=== PATIENT | male | born 1955 ===

== ENCOUNTER 2025-03-29 21:24 | Inpatient (IN) | payer OTHER, SELFPAY ==
[2025-03-29] VITALS (7 sets, daily range): BP systolic 68–117; BP diastolic 52–65
[2025-03-29 21:48] LABS: Glucose - Point of Care 116 mg/dl (70-99)
--- NOTE | 2025-03-29 22:10 | PTCARENOTE ---
received pt from [facility] and admitted into 2261. pt intubated and sedated. A-fib per tele monitor. Tachycardic. +pulses, generalized anasarca, +1/+2 pitting edema in B/L hands. ETT 8.0 / 21 @lip, Vent settings: A/C 40/450/12/5. Pox
98% lungs diminished throughout. Dobhoff 75 @ L nare. Christian draining hematuria. R lateral percutaneous Cholecystomy drain intact. +bs, +bm on arrival, Stage 1 blanchable pressure wound on sacrum on arrival. LIJ triple lumen intact. See worklist
for nursing interventions.
gtts:
Cardizem 15mg/hr
Propofol 30.2 mcg/kg/min
Heparin 300 units.
[2025-03-29] MEDS: SUBLIMAZE 100 IV (23:44)
[2025-03-29] MEDS: SUBLIMAZE 50 MCG IV (23:45)
[2025-03-30] VITALS (27 sets, daily range): BP systolic 88–132; BP diastolic 55–99
--- NOTE | 2025-03-30 00:34 | W.PN.UPDATE ---
Update Note
Progress Note Update
Procedure Note:
Procedure: Left Radial Arterial Line Placement
Consent: Administrative
Indication: Continuous BP monitoring, VDRF in need frequent ABG's, phlebotomy
Method: After Memo's test confirmed patency of ulnar artery and jacobs arches, pt was draped and prepped sterilely. Left radial artery was palpated, identified and punctured with 20G needle.
Catheter was inserted over guidewire without resistance using Seldinger's technique. Proper waveform and good flashback were noted. Catheter was sutured in place using 2-0 silk suture.
Area was sterilely dressed with tegaderm after application of biopatch. There were no significant blood loss or complications, pt tolerated procedure well.
--- NOTE | 2025-03-30 01:09 | PTCARENOTE ---
L Radial A-line placed by CTPA Ed Johnathan at bedside.
[2025-03-30] MEDS: DIPRIVAN 100 IV ×4 (01:31→21:40)
[2025-03-30 01:32] LABS: B.E. 5.3 mmol/L; HCO3 28.9 mmol/L (21-28); Ionized Calcium 1.17 mMOL/L (1.15-1.33); O2 Saturation % 99.7 % (94-98); PCO2 37 mmHg (35-48); PO2 130 mmHg (83-108)
[2025-03-30 01:35] LABS: Hematocrit 26.2 % (39.0-52.0); Hemoglobin 8.4 g/dL (13.0-18.0); Mean Corp Hgb Conc. 32.1 g/dL (33.0-37.0); Mean Corpuscular Hgb 28.9 pg (27.0-31.0); Mean Platelet Volume 11.4 fL (7.4-10.4); Platelet Count 185 10^3/uL (130-400); Red Blood Cell Count 2.91 10^6/uL (4.70-6.10); Red Cell Dist. Width 17.1 % (11.5-14.5); White Blood Cell Count 17.6 10^3/uL (4.8-10.8)
[2025-03-30 01:46] LABS: INR 1.04; PT 13.9 Sec (11.4-14.6)
[2025-03-30 01:47] LABS: APTT 31.3 Sec (23.4-35.0)
[2025-03-30 01:55] LABS: ALT (SGPT) 104 U/L (0-50); AST (SGOT) 29 U/L (17-59); Albumin 2.7 g/dl (3.5-5.0); Alkaline Phosphatase 101 U/L (38-126); Blood Urea Nitrogen 39 mg/dl (9-20); Carbon Dioxide 26 mmol/L (22-30); Chloride 110 mmol/L (98-107); Direct Bilirubin 0.8 mg/dl (0.0-0.4); Glucose 143 mg/dl (70-99); HDL Cholesterol 36 mg/dl; Lactic Acid 0.8 mmol/L (0.7-2.0); Magnesium 2.3 mg/dl (1.6-2.3); Potassium 3.5 mmol/L (3.5-5.1); Sodium 142 mmol/L (135-145); Total Bilirubin 0.9 mg/dl (0.2-1.3); Total Cholesterol 118 mg/dl (50-199); Total Protein 5.6 g/dl (6.3-8.2); eGFR > 60.00
[2025-03-30] MEDS: HEPARIN 25000 UNITS/250 ML IV ×2 (02:16→21:35)
--- NOTE | 2025-03-30 02:32 | HPS.HSE ---
Family Physician
-
Family Physician: INTERVIEWE UNKNOWN - PT NOT
Chief Complaint
-
Mitral valve endocarditis/Flail @ P2
History of Present Illness
69 y/o man (intubated with hx obtained from chart) with hx of Gout, Hyperlipidemia, and Prostate ca (since 2012 which was treated with XRT and Hormone Therapy - Abiraterone; relapse 2015 treated with cryotherapy; relapse again in 2023 and being
treated with Abiraterone). Pt was having generalized malaise (fatigue, loss of appetite), intermittent non productive cough with subsequent diarrhea x 2 wks, prompting a visit to an urgent care facility. Pt was suspected of having RLL
pneumonia/bronchitis @ urgent care and was prescribed Azithromycin and Ceftin, directed to see PCP. Pt saw PCP on 03/16/25 and was found to be a-fib with RVR and advised to seek further evaluation @ [facility]. Pt presented to [facility] on 03/16/25
and received treatment for his A-fib with Cardizem and Esmolol gtt. On 03/17/25 pt became hypotensive, bradycardic with asystole requiring CPR, 2 doses of Epinephrine, and an 1amp of bicarb before achieving ROSC. It is reported that patient underwent
Targeted Temperature Management following ROSC. Subsequent evaluation @ [facility] R/O PE but found pt to have sepsis (blood cultures grew gram positive cocci in pairs and clusters) and acute cholecystitis. Pt received antibiotic treatment including Zosyn,
and underwent percutaneous cholecystomy tube placement by IR, 03/19/25. TONE obtained on 03/27/25 found MV leaflets be mildly thickened with P2 flail. Superimposed vegetation could not be excluded. Also noted on TONE was mild TR, mild AI, trivial
pericardial effusion, and LVEF of 60-65%. Arrangements were mad to transfer pt to [facility] for evaluation of Mitral valve repair/replacement. Pt presented to [facility]ICU on 03/29/25 @ 2120 intubated on Propofol @ 30, Cardizem gtt @ 15 mg/hr and Heparin gtt.
Pt was noted have pacheco in place with hematuria. Had IV access via left IJ triple lumen, no arterial line.
Medical History
Past Medical History
Past Medical History: Reports Other
Additional Past Medical History:
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
-Mild TR
-Mild AI
-Trivial pericardial effusion
-LVEF 60-65%
-Cardiac arrest S/P CPR with ROSC, 03/17/25
-Afib/flutter s/p unsuccessful TONE cardioversion, 03/27/25
-Bradycardia
-Hypotension
-Reported TTM
-Elevated iver enzymes @ [facility]
-Acute cholecystitis S/p cholecystostomy tube placement, 03/19/25
-FELIZ @ [facility]
-Hyperlipidemia
-Hypokalemia
-Gout
-Class 2 obesity
-Poor dentition
-Former tobacco use (1/2-2 ppd x 40 yrs, quit 10 yrs ago)
-ETOH use (1 beer/wk)
-S/P VDRF
-S/P Left carpel tunnel
Past Surgical History: Reports Other
Additional Past Surgical History:
-S/p unsuccessful TONE cardioversion, 03/27/25
-S/P VDRF
-S/P CPR with ROSC, 03/16/25
-S/P Percutaneous cholecystostomy tube placement, 03/19/25
-S/P Left carpel tunnel
Social History
Tobacco: Smoker
Alcohol: Occasional
Drug: None
Personal:
Living: With Family
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
Family History
Family History: Early CAD (Father @ age 50 from [place])
Allergies / Home Medications
Allergies reflects when Allergies were last updated in [facility].
Home Medications with original date entered in [facility]
Allergy/Medication List:
-NKDA
Review of Systems
-
Unable to obtain full review of systems at this time due to: Patient Intubation
Physical Exam
Vital Signs
Vital Signs
Temp Pulse Resp BP Pulse Ox
100.0 F 122 24 88/59 94
03/30/25 02:00 03/30/25 02:00 03/30/25 02:00 03/30/25 02:00 03/30/25 02:00
Physical Exam
General: Well Developed and Well Nourished
HEENT: NormoCephalic, Anicteric, Moist mucous membranes, Atraumatic and Other (Poor dentition)
Respiratory: Decreased Breath Sounds
Cardiac: Irregular Rhythm, Tachycardia (a-fib) and Murmur (2-3/6 systolic murmur)
Breast: Deferred by me
GI: Other (Protuberant with cholecystostomy tube placement)
Rectal: Deferred by Provider
Genito-urinary: Deferred by me
Musculoskeletal: Edema, Left Upper Extremity (2+), Edema, Right Upper Extremity (2+), Edema, Left Lower Extremity (+trace edema) and Edema, Right Lower Extremity (+trace edema)
Skin: Warm
Neuro: Other (intubated/sedated)
Hematologic/Lymphatic: No Lymphadenopathy
Psych: Other (Sedated and intubated)
Laboratory Results
-
03/30/25 06:00
03/30/25 06:00
Laboratory Results
PT Cancelled 03/30/25 06:00
INR Cancelled 03/30/25 06:00
APTT Cancelled 03/30/25 06:00
pH Cancelled 03/30/25 06:00
pCO2 Cancelled 03/30/25 06:00
pO2 Cancelled 03/30/25 06:00
HCO3 Cancelled 03/30/25 06:00
Lactic Acid 0.8 mmol/L (0.7-2.0) 03/30/25 01:21
Total Bilirubin Cancelled 03/30/25 06:00
AST Cancelled 03/30/25 06:00
ALT Cancelled 03/30/25 06:00
Alkaline Phosphatase Cancelled 03/30/25 06:00
Data Reviewed
-
Diagnostic Radiology: Report Reviewed by me
CT Scan: Report Reviewed by me
Ultrasound: Report Reviewed by me
Medical Tests (Nuc Med, Echo, EKG etc): Report Reviewed by me
Lab Data: Labs Reviewed by me
Old Records: Reviewed
Impression/Plan
-
IMPRESSION:
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
-Mild TR
-Mild AI
-Trivial pericardial effusion
-LVEF 60-65%
-Cardiac arrest S/P CPR with ROSC, 03/17/25
-Afib/flutter S/p unsuccessful TONE cardioversion, 03/27/25
-Bradycardia
-Hypotension
-Reported TTM
-Elevated iver enzymes @ [facility]
-Acute cholecystitis S/p cholecystostomy tube placement, 03/19/25
-FELIZ @ [facility]
-Hyperlipidemia
-Hypokalemia
-Gout
-Class 2 obesity
-Former tobacco use (1/2-2 ppd x 40 yrs, quit 10 yrs ago)
-ETOH use (1 beer/wk)
-S/P VDRF
-S/P Left carpel tunnel
PLAN:
-Dr. Johnson to see, review imaging and discern if pt is a candidate for surgical intervention
-Will work to extubate pt as pt has been intubated since 03/17/25
-Cont. Cardizem gtt for PAF
-A-line placed
-Maintain pacheco catheter
-Will consult Cardiology (A-fib/flutter), ID (suspected MV endocarditis), General Surgery (Acute cholecystitis), Oncology (prostate ca, currently on Arbiraterone), Neurology (TTM), OMFS (poor dentition)
[2025-03-30] MEDS: CARDIZEM 125 IV ×3 (02:36→21:25)
[2025-03-30] MEDS: CALCIUM GLUCONATE 130 MG IV (03:30)
--- NOTE | 2025-03-30 04:10 | PTCARENOTE ---
Pt intubated and sedated. PIV placed in right wrist. a-fib per tele monitor HR low 100s. VSS
gtts:
Fentanyl
propofol
Heparin
Cardizem.
[2025-03-30] MEDS: KCL 100 IV (04:19)
[2025-03-30 07:08] LABS: LDL Cholesterol, Calculated 50 mg/dl; Triglyceride 167 mg/dl (10-149); Very Low Density Lipoprotein 33 mg/dl (0-30)
--- NOTE | 2025-03-30 07:58 | CON.CAR ---
Addendum entered and electronically signed by Bryan Hernandez MD 03/30/25 15:02:
69 yo male with PMH of moderate/severe MR (flail P2), prostate cancer cancer transferred to [place] for CT surgery evaluation. Patient was initially treated for PNA as outpatient early in March. He worsened clinically, and was sent to [facility]. He was
in new A fib with RVR. He became septic, with Strep viridans bacteremia. Then PEA arrest 03/17. He remains intubated, sedated. Exam with tachy, irregular rhythm, III/ systolic murmur at apex, trace LE edema. Cr 0.9. Tele: A fib 90s-110s. I
reviewed TONE images from [facility]. Highly eccentric severe MR. There appears to be prolapse, partial flail of posterior leaflet. Cannot rule out vegetation: mobile echodensity may be ruptured chords. EF grossly normal.
Patient is critically ill. Unclear mental status following his cardiac arrest, and neurology has been consulted. Discussed with CT surgery team. Would like diagnostic cath as working towards surgical evaluation, determination of candidacy for
surgery. Discussed with interventional cards, and will proceed with cath today. He will undergo f/u TTE as well.
A fib, now persistent. He underwent DCCV at [facility], and was briefly in sinus before reverting back to A fib. Continue diltiazem drip and metoprolol. Continue heparin drip for AC.
CCT 65 min (of my time), including review of records, discussion with family at bedside, review of echo images from [facility], and discussion with CT surgery, and interventional cards to develop plan of care.
Original Note:
Consultation
Consultation Request
Date/Time Consultation Requested: 03/29/2025 15:50
Date/Time Consultation Performed: 03/30/2025 08:00
Requesting Provider: NAEEM Zaman
Performing Provider: NAEEM Looney for Dr. Hernandez
Reason for Consultation: Atrial fibrillation with RVR
Medical History
-
Chief Complaint: Severe mitral regurgitation
History of Present Illness:
Prem King is a 69 year old male with moderate MR (flail P2), HLD, metastatic prostate cancer (on Abiraterone & prednisone), gout, and hypothyroidism presents as a transfer from [facility] ([facility]) with severe mitral regurgitation with
possible vegetation. Mr. King is intubated and sedated and cannot contribute to this HPI nor ROS.
Review: Patient had 2 weeks of poor oral intake and generalized fatigue with an associated nonproductive cough. 1 week prior to arrival at [facility] he went to urgent care where he was given antibiotics for presumed pneumonia. On the date of the
admission, he was evaluated by his PCP and was found to be in atrial fibrillation with rapid ventricular response and was referred for emergency evaluation. He was normotensive with a heart rate 130-180 bpm. He was started on a diltiazem drip.
EKG revealed nonspecific ST wave abnormalities. He had a CTA to rule out PE. Stephanie tube placed by IR at [facility]. Nephrology followed for hypernatremia. Heme/Onc followed for hematuria (resolved, negative HIT) and prostate cancer. During his
hospitalization he was found to have sepsis in the setting of bacteremia. There was concern for mitral valve endocarditis. He had known MR with flail P2 prior to this admission. He had a PEA arrest. TTM performed.
Past Medical History
Past Medical History: Arrhythmias (PVC), Cancer (metastatic prostate cancer), Hypercholesterolemia, Hypothyroidism and Valvular Disease (MVP, moderate mitral regurgitation, mild aortic insufficiency )
Past Surgical History: Orthopedic and Tonsilectomy
Social History
Tobacco: Former Smoker
Alcohol: Occasional
Personal:
Living: With Family
Family History
Family History: CAD (Father with [place], age 50.)
Allergies / Home Medications
Allergy/AdvReac Type Severity Reaction Status Date / Time
No Known Allergies Allergy Unverified 03/29/25 15:53
Review of Systems
-
Unable to obtain full review of systems at this time due to: Patient Intubation
Physical Exam
Vital Signs
Temp Pulse Resp BP Pulse Ox
98.7 F 93 24 107/66 98
03/30/25 07:46 03/30/25 07:00 03/30/25 07:46 03/30/25 07:00 03/30/25 07:47
Lab Results
03/30/25 06:00
03/30/25 06:00
Physical Exam
General: Well Developed and Comfortable
HEENT: Normocephalic and Anicteric
Respiratory: Clear and Other (mechanical ventilation)
Cardiac: S1/S2, Irregular Rhythm and Murmur (III/)
Breast: Deferred by me
GI: Soft, Non Tender, Non Distended and Normal Bowel Sounds
Rectal: Deferred by Provider
Genito-urinary: No Costovertebral Tender
Musculoskeletal: No Clubbing and No Cyanosis
Skin: Warm and Dry
Neuro: Sedated
Hematologic/Lymphatic: No Lymphadenopathy
Impression / Plan
-
I/P: 69M with moderate MR (flail P2) now severe, HLD, metastatic prostate cancer (on Abiraterone & prednisone), gout, and hypothyroidism presents as a transfer from [facility] ([facility]) with severe mitral regurgitation with possible
vegetation.
Outpatient Manager Medical Device: Dr. Rodriguez
S/p PEA cardiac arrest 03/17/2025
-10 minutes od CPR prior to ROSC, epi x 2, no shocks -> TTM
-Reportedly did poorly on pressure support wean 03/29/2025 (respiratory alkalosis with high minute volume ventilation)
-Remains intubated and sedated, sedation wean this morning
-On stress dose steroids, he is on chronic prednisone 5mg BID as an outpatient
Severe sepsis - Bacteremia (Streptococcus viridans)
-ID consulted
Mitral regurgitation, severe
-Flail P2, seen on 2023 study with 'moderate mitral vegetation) -- typographical error for regurgitation?
Volume overload
-Unclear cause, volume resuscitation with severe MR?
Atrial fibrillation with RVR
-Failed 03/27/25 DCCV, near immediate return of RVR
-Was on metoprolol, digoxin, and diltiazem at [facility]
-Oral anticoagulation: Heparin gtt
-[id number]: score at least 1 (age 65-74)
Acute cholecystitis
-Perc stephanie tube placed at [facility] 03/19/2025
Hematuria, resolved, HIT negative
Hypernatremia, resolved, briefly saw Nephrology at [facility]
Prostate cancer, metastatic, on Abiraterone
PVCs, burden 4.6% on Holter (2023)
Former smoker, continued cessation recommended
DATA:
TONE, 03/27/2025:
Mild AR.
MV leaflets thickened. Flail P2. Vegetation cannot be excluded.
CT PE 03/16/2025:
Moderate pericardial effusion.
Bilateral pleural effusions, R > L.
--- NOTE | 2025-03-30 08:25 | CON.INTV ---
Consultation
Consultation Request
Date/Time Consultation Requested: 03/30/2025800
Date/Time Consultation Performed: 03/30/2025819
Requesting Provider: Mary Jara NP
Performing Provider: Dr. Granger
Reason for Consultation: Intubated
Medical History
-
Chief Complaint: Fatigue, cough, diarrhea
History of Present Illness:
69-year-old male former tobacco smoker with a past medical history of of gout, prostate cancer (diagnosed 2012) s/p XRT with relapse in 2015 s/p cryotherapy, and another relapse in 2023 currently being treated with abiraterone, and hyperlipidemia
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 Patient has a known history of moderate to severe mitral regurgitation, with last echo done here at from 04/16/2024 showing posterior MV leaflet
prolapse with moderate mitral regurgitation and LVEF 55 to 60%. Patient was following with cardiology with Dr. Rodriguez at the time. Patient was asymptomatic at the time and repeat echo was ordered for April 07, 2025. The patient developed generalized
malaise with intermittent dry cough and diarrhea for 2 weeks and he went to urgent care [facility]. RLL pneumonia/bronchitis was suspected at urgent care and he was prescribed Zithromax + Ceftin. Patient saw his PCP on 03/16/2025 and found to be in new
onset A-fib with RVR and was sent to [facility]. While at [facility], he was started on Cardizem gtt + esmolol gtt. patient cardiac arrested on 03/17 which was preceded by bradycardia and then asystole, and received ROSC after 2 amps of
epinephrine and 1 amp of bicarb. Per documentation, patient underwent TTM. Evaluation for an acute PE was negative. Patient was found to be bacteremic reportedly with Streptococcus viridans. Patient also diagnosed with acute cholecystitis and
underwent percutaneous cholecystostomy tube placement by IR on 03/19. Patient had been started on antibiotics with Zosyn. Patient continued to be intubated since the day of his cardiac arrest on 03/17 with great difficulty weaning his sedation and
performing weaning trials due to tachycardia with hypertension and tachypnea. TONE performed on 03/27/2025 showed mildly thickened MV leaflets with P2 flail. Superimposed MV vegetation unable to be ruled out. Patient then transferred here to for
further evaluation for cardiothoracic intervention. [facility] [employer] service is now consulted for additional management/recommendations.
When I saw the patient today, he was intubated on AC/CMV at 12/450/40%/5 with PIP 19 cm water, VTE 495 cc and breathing at 22 breaths/min. He is currently sedated on propofol at 10 mcg/kg/min and fentanyl drip at 25 mcg/hr. Percutaneous
cholecystostomy tube in place draining brown bile. Patient's heart rate is 99, BP 115/70 via A-line, 93/52 via NIBP, and ETCO2: 29. Patient's family members at bedside including the patient's son, Rob, and the patient's , Caroline. All
questions were answered.
PMHx: PVCs, aortic insufficiency, mitral valve prolapse with mitral regurgitation, hyperlipidemia, metastatic prostate cancer s/p XRT with relapse (2015) treated with cryotherapy, currently on hormone therapy due to second relapse in 2023,
hypothyroidism, gout
PSHx: Plate with screw, broken right wrist with screws, tonsillectomy
Past Medical History
Past Medical History: Other (Above as per HPI)
Past Surgical History: Other (Above as per HPI)
Social History
Tobacco: Former Smoker
Alcohol: Occasional (Rarely)
Drug: None
Personal:
Living: With Family (Caroline)
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
Family History
Family History: CAD (Father)
Allergies / Home Medications
Allergies
Allergy/AdvReac Type Severity Reaction Status Date / Time
No Known Allergies Allergy Unverified 03/29/25 15:53
Review of Systems
-
Unable to Obtain full review of systems at this time due to: Patient Intubation
Vitals / Labs / Diagnostic Testing
Vital Signs
Temp Pulse Resp BP Pulse Ox
99.1 F 103 29 123/71 97
03/30/25 09:00 03/30/25 09:00 03/30/25 09:00 03/30/25 09:00 03/30/25 09:00
Lab Data
03/30/25 06:00
Laboratory Results
03/30/25 03/30/25 03/30/25
01:21 06:00 08:33
PT 13.9 Cancelled
INR 1.04 Cancelled
APTT 31.3 Cancelled 38.6 H
pH 7.50 H Cancelled
pCO2 37 Cancelled
pO2 130 H Cancelled
HCO3 28.9 H Cancelled
O2 Delivery Level Cancelled
Diagnostic Testing:
Physical Exam
-
HEENT: Normocephalic, Anicteric and Other (ETT in place)
Cardiovascular: Irregular Rhythm (Irregularly irregular) and Peripheral Edema (+1 lower extremity pitting edema bilaterally)
Respiratory: Wheeze (negative), Rales (negative), Rhonchi (negative), Non-Labored Respirations and Other (Mechanical breath sounds heard bilaterally)
GI: Soft, Non Distended, Non Tender and Normal Bowel Sounds
Neurology: Tremors (negative) and Other (Pupils 2 mm bilaterally and brisk)
Skin: Warm and Dry
General: Respiratory Distress (negative), Comfortable, Chills (negative) and Sweats (negative)
Assessment
-
Assessment: 69-year-old male former tobacco smoker with a past medical history of of gout, prostate cancer (diagnosed 2012) s/p XRT with relapse in 2015 s/p cryotherapy, and another relapse in 2023 currently being treated with abiraterone, and
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 Patient has a known history of moderate to severe mitral regurgitation, with last echo done here at from 04/16/2024 showing posterior MV
leaflet prolapse with moderate mitral regurgitation and LVEF 55 to 60%. Patient was following with cardiology with Dr. Lax at the time. Patient was asymptomatic at the time and repeat echo was ordered for April 07, 2025. The patient developed
generalized malaise with intermittent dry cough and diarrhea for 2 weeks and he went to urgent care [facility]. RLL pneumonia/bronchitis was suspected at urgent care and he was prescribed Zithromax + Ceftin. Patient saw his PCP on 03/16/2025 and found to
be in new onset A-fib with RVR and was sent to [facility]. While at [facility], he was started on Cardizem gtt + esmolol gtt. patient cardiac arrested on 03/17 which was preceded by bradycardia and then asystole, and received ROSC after 2 amps
of epinephrine and 1 amp of bicarb. Per documentation, patient underwent TTM. Evaluation for an acute PE was negative. Patient was found to be bacteremic reportedly with Streptococcus viridans. Patient also diagnosed with acute cholecystitis and
underwent percutaneous cholecystostomy tube placement by IR on 03/19. Patient had been started on antibiotics with Zosyn. Patient continued to be intubated since the day of his cardiac arrest on 03/17 with great difficulty weaning his sedation and
performing weaning trials due to tachycardia with hypertension and tachypnea. TONE performed on 03/27/2025 showed mildly thickened MV leaflets with P2 flail. Superimposed MV vegetation unable to be ruled out. Patient then transferred here to for
further evaluation for cardiothoracic intervention. [employer] service is now consulted for additional management/recommendations.
Chronic conditions [facility]: PVCs, aortic insufficiency, mitral valve prolapse with mitral regurgitation, hyperlipidemia, metastatic prostate cancer s/p XRT with relapse (2015) treated with cryotherapy, currently on hormone therapy due to second relapse
in 2023, hypothyroidism, gout
Impression:
#Ventilator dependent respiratory failure/acute hypoxic respiratory failure � intubated 03/17/2025 during in-hospital cardiac arrest
#In-hospital cardiac arrest at [facility] on 03/17/2025 (reportedly, patient became bradycardic and then developed asystole with ROSC obtained after 2 amps epi and 1 amp bicarb) s/p TTM
#Acute encephalopathy and upward gaze preference (left eye > right eye)
#Acute cholecystitis s/p percutaneous cholecystostomy tube placement (performed at [facility] on 03/19/2025) -bile fluid Cx reportedly negative unless mentioned above
#Moderate�severe mitral valve regurgitation with reported P2 flail with possible vegetation
#New onset atrial fibrillation
#Anemia
#Transaminitis (elevated T. bili + ALT)
#Bacteremia due to Streptococcus viridans (per patient's family)
#Metastatic prostate cancer (diagnosed 2012) s/p XRT with relapse (2015) s/p cryotherapy and another relapse in 2023 currently being treated with abiraterone
#Gout
Plan:
- Unclear sequence of events, however seems as if he had initial respiratory infection and then developed cardiac arrest, possibly due to ischemic heart disease with acute MR vs subacute MV endocarditis with valve destruction leading to severe MR,
and possible acute cholecystitis as a result of critical illness (as no stone reported and reportedly the bile was cultured and showed no growth)
- Tentative [facility] today
- Will need to obtain medical records from [facility]; may benefit from repeating TONE so have an updated view of his MV and re-assess for flail at P2
- Pt has been intubated since 03/17, hence depending on plan, perhaps best course would be tracheostomy, however if cardiothoracic intervention recommended then would keep intubated as once the mitral valve is fixed then I believe that weaning him
off sedation and then performing a SBT would be more feasible without risk of acute flash pulmonary edema
- Continue with mechanical ventilation with daily SAT/SBT if clinically appropriate - for now would not perform SAT/SBT as pt may require cardiothoracic intervention
- Maintain plateau pressure <30 and titrate FiO2 + PEEP to keep SpO2 >90-94%
- Continue aspiration precautions; keep HOB >30-45�
- prn nebulized bronchodilators - not currently bronchospastic
- Oropharyngeal + deep ETT suctioning with subglottic as needed
- Daily CXR + blood gas
- Daily vent adjustments as needed based on blood gas and SaO2
- Low level of sedation with goal RASS as 0 to -2
- If patient does not awaken appropriately, then would consider EEG +/- MRI brain
- CT head obtained today (03/30) showed no acute intracranial abnormality
- Neurology consulted and recs appreciated
- Try limiting DISEASE INTERVENTION SPECIALIST altering medications and keep sedation at the lowest dose needed to maintain RASS 0 to -2
- Continue with antibiotics, currently on ceftriaxone 2,000 mg IV q24hr
- Recommend ID consult
- Follow-up blood cultures x 2 collected today + check respiratory culture from ETT (if able to obtain adequate sample)
- There is a mild retrocardiac opacity concerning for pneumonia - continue Abx and if pt spikes fever then would broaden Abx further to cover MRSA and Pseudomonas with CT C/A/P
- Follow up MRSA swab
- Trend WBC and monitor for fevers
- Trend LFTs
- Trend perc yasmany drain output
- Maintain MAP>65 - currently off all pressors
- Currently on hydrocortisone - will attempt to wean off
- Maintain HR <110
- Heparin gtt with eventual TRX to NOAC
- Cardiology on board - recs appreciated
- Replete electrolytes with K>4, Mg>2
- Maintain euglycemia with goal BG 140-180
- Trend H/H and transfuse if needed to keep Hb>7-8g/dL; keep plt>20k, unless there is concern for bleeding then keep plt>50k
- Stress ulcer ppx
- Early nutrition - start tube feeds
- DVT ppx: Heparin gtt
Code status: Full code
Critical care statement: A total of 42 minutes of critical care time was provided for this patient today. This includes management of unstable vital signs, evaluation of the patient at bedside, reviewing the patient's pertinent medical records
including radiographs, microbiology, laboratory evaluations, and discussion with primary team, consultants, pharmacy, nutrition, physical therapy, case management, charge nurse, critical care nursing, and respiratory therapy.
--- NOTE | 2025-03-30 08:40 | PTCARENOTE ---
assumed care of pt from previous shift RN, Pupils +2, equally reactive to light, sedation vacation initiated at 08:30. afib on tele w HR 90-110, left radial daniele leveled and zeroed, BP 124/59, + peripheral pulses, +1 generalized edema. Lungs
diminished w occasional expiratory wheeze, #8 ETT/20cm at center lip. VENT SETTINGS: SIMV 40/450/12/+5, pox 99%. Left nare DHT position confirmed via CXR, hypoactive BS noted. NPO maintained as ordered. Christian draining lisa. Right abdominal perc
drain w bilious drainage.
[2025-03-30 08:49] LABS: Glycohemoglobin (HgbA1c) 5.8 % (4.0-5.6)
--- NOTE | 2025-03-30 08:56 | PTCARENOTE ---
CXR showed ETT not in proper position. Pt w eyes open, coughing around ETT. Pt resedated, CT JAMES and respiratory at bedside. Tube repositioned. Awaiting repeat CXR.
[2025-03-30 08:57] LABS: APTT 38.6 Sec (23.4-35.0)
--- NOTE | 2025-03-30 09:18 | PTCARENOTE ---
ETT further advanced to 27cm by RT and CT JAMES
[2025-03-30] MEDS: PEPCID 20 MG TUBE ×2 (10:05→20:39)
[2025-03-30] MEDS: MIRALAX 17 GRAMS TUBE (10:05)
[2025-03-30] MEDS: ZYLOPRIM 100 MG TUBE (10:05)
[2025-03-30] MEDS: LOPRESSOR 25 MG PO (10:06)
[2025-03-30] MEDS: LIPITOR 40 MG TUBE (10:06)
[2025-03-30] MEDS: STERILE WATER FOR INJECTION 20 ML IV (10:06)
[2025-03-30] MEDS: ROCEPHIN 2000 MG IV (10:06)
[2025-03-30] MEDS: ASPIR LOW (ENTERIC COATED) 81 MG PO (10:06)
--- NOTE | 2025-03-30 10:06 | CON.GS ---
Addendum entered and electronically signed by Abimael Benavides MD 03/30/25 11:43:
I saw and examined the patient independently.
The Row Boss Hoeing's note was reviewed and I agree with the note, assessment and plan except where noted below.
Comment: This is a 69-year-old male currently intubated and sedated, transferred here from [facility] for workup of mitral valve prolapse/endocarditis in the setting of metastatic prostate cancer. During his hospitalization there he underwent
imaging to identify the source of his sepsis and his gallbladder was noted to be distended and somewhat thickened so the diagnosis of acalculous cholecystitis was made. A percutaneous cholecystostomy tube was placed on 03/19/2025 with negative
cultures and has remained to gravity drainage since then. It is unclear if he is under the care of a general surgeon at [facility]. We also do not have his CT images but do have the report.
Will continue the cholecystostomy tube to gravity drainage.
Can add 3-way stopcock to allow easier flushing of the tubing, 10 cc NS once daily to ensure patency.
This drain will need to be in place for at least 6 weeks. We will typically do a tube injection study and if patency of the cystic duct is confirmed and there is no underlying stone disease, may simply be able to remove the tube versus potential
laparoscopic cholecystectomy.
Discharge instructions placed, patient to follow-up with me as an outpatient or can follow-up with his surgeon at [facility] if he had one established.
We will sign off for now, please call with any questions or concerns.
Original Note:
Consultation
-
Date/Time Consultation Performed: 03/30/25 0915
Requesting Provider: Meet
Reason for Consultation: guidance for perc yasmany drain
Medical History
-
Chief Complaint: perc yasmany tube present
History of Present Illness:
Mr King is a 69 yo male who was transferred from [facility] to yesterday from evaluation by cardiothoracic surgery. He is intubated/sedated and unable to provide history, therefore, the majority of the history was obtained from his medical
record. He is an active smoker who has a h/o metastatic prostate cancer currently on Abiraterone and gout with recent history of PNA tx as an outpatient earlier this month followed by new onset Afib with RVR causing him to present to [facility]
on 03[facility]25 at the recommendation of his PCP. He became asystolic while there requiring CPR with ROSC followed by TTM. He was noted to be septic with strep bactermia with infectious work up demonstrating possible acalculous cholecystitis for which a
cholecystostomy drain was placed on 03/18/25 with negative fluid cultures. A TONE was done on 03/29 for possible cardioversion with concern for endocarditis/vegetation of the MV and thus subsequent transfer to for cardiothoracic evaluation.
Past Medical History
Past Medical History: Arrhythmias (AFib), Hypercholesterolemia and Other (gout, morbid obesity)
Past Surgical History: Orthopedic (left carpal tunnel)
Social History
Tobacco: Smoker
Alcohol: Occasional
Personal:
Living: With Family
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
Family History
Family History: Early CAD (Father at age 50)
Allergies / Home Medications
Allergy/AdvReac Type Severity Reaction Status Date / Time
No Known Allergies Allergy Unverified 03/29/25 15:53
Review of Systems
-
Unable to obtain full review of systems at this time due to: Patient Intubation
A 10 point review of systems was completed, and was negative except as per HPI.
Physical Exam
Vital Signs
Temp Pulse Resp BP Pulse Ox
99.1 F 103 29 123/71 98
03/30/25 09:00 03/30/25 09:00 03/30/25 09:00 03/30/25 09:00 03/30/25 09:51
03/29/25 03/30/25 03/31/25
06:59 06:59 06:59
Actual Weight 102.9 kg
Lab Results
03/30/25 06:00
WBC Cancelled 03/30/25 06:00
Hgb Cancelled 03/30/25 06:00
Hct Cancelled 03/30/25 06:00
Plt Count Cancelled 03/30/25 06:00
Abs Immat Gran (auto) Cancelled 03/30/25 06:00
Neutrophils % Cancelled 03/30/25 06:00
Physical Exam
General: No Apparent Distress
HEENT: Other (intubated)
Respiratory: Other (VDRF)
GI: Soft, Non Distended, Obese and Other (RUQ with percutaneous cholecystostomy tube in place with brown outputs)
Skin: Warm and Dry
Neuro: Sedated
Psych: Calm
Data Reviewed
-
Old Records: Requested (CD of imaging) and Reviewed (paper chart from [facility] reviewed)
Assessment / Plan
-
69 yo male with recent onset of afib s/p asystole arrest with ROSC s/p TTM being treated for strep bacteremia with recent TONE with concern for ?endocarditis/MV vegetation who was transferred from [facility] for CT surg evaluation. During the
course of his admission at [facility], a percutaneous cholecystostomy tube was placed for possible acalculous cholecystitis for which a cholecystostomy drain on 03/18/25 with negative fluid cultures. Chart record reviewed from [facility], await
disc with imaging which is currently not available. Tube is functioning with bilious drainage noted on exam. Leukocytosis present to 17.6. Mild tachycardia. Fever of 100.6. Remains in VDRF.
Plan:
Continue local drain care with daily flush
Perc yasmany to remain in place for 6-8 weeks at minimum to allow tract to heal after which time would plan and outpatient tube study with IR/further imaging to reevaluate gallbladder
Will need close outpatient surgical follow up after his recovery from this acute event for drain management, either with team at [facility] or our team here at [facility] depending on patient preference
[2025-03-30] MEDS: SOLU-CORTEF 25 MG IV ×2 (10:07→20:39)
[2025-03-30 10:09] LABS: Blood Urea Nitrogen 38 mg/dl (9-20); Calcium 8.7 mg/dl (8.4-10.2); Carbon Dioxide 25 mmol/L (22-30); Chloride 110 mmol/L (98-107); Glucose 134 mg/dl (70-99); Potassium 4.1 mmol/L (3.5-5.1); Sodium 140 mmol/L (135-145); eGFR > 60.00
--- NOTE | 2025-03-30 10:17 | CON.NEURO ---
Neuro Assessment/Plan
Assessment
Encephalopathy following sepsis with cardiac arrest and need for surgical intervention to remove infected mitral valve
Not easy to detect what the correct prognosis would be for a full neurological recovery as there is not enough information.
Plan
Recheck CT of head without contrast to determine if there are new structural lesions producing current encephalopathy
Attempt to diminish or discontinue sedative medications to determine neurological baseline
Consider EEG if CT of head fails to demonstrate abnormality in the patient does not have a significant return of cognitive function after withholding sedation
Check blood work for additional metabolic abnormalities
Will follow pending results
Consultation
Order
Date of Consultation: 03/30/25
Requesting Provider: CT surgery
Reason for Consult: Encephalopathy
Subjective/Objective
Subjective Data
Date of Service: March 30, 2025
Unknown handed
Patient was transferred here from a local hospital ([facility]) for consideration of valve repair after discovery of presumed endocarditis.
Patient's medical history is entirely obtained after review of the patient's medical records and discussion with the patient's professional medical care providers. The patient reportedly was in his usual state of health until development of a cough
and diarrhea for 2 weeks prompting diagnosis at an urgent care facility with right lower lobe pneumonia. The patient received antibiotics at that time and was then evaluated by his primary care provider who found the patient to be in atrial
fibrillation. The patient presented to that outside hospital's emergency department. Unfortunately the patient then developed hypotension bradycardia and asystole requiring 2 doses of epinephrine and 1 dose of bicarbonate before retrieving
spontaneous circulation. The timeframe for return of circulation is unclear. The patient then underwent targeted temperature management and was found to have sepsis and acute cholecystitis. Patient was then found to have thickening on mitral
valve leaflets presumed to be infectious in etiology at which time the patient was transferred to this hospital yesterday evening.
While at the outside hospital, patient was described as being interactive, however, currently, the patient is described as not having ability to respond.
Objective Data
Vital Signs
Temp Pulse Resp BP Pulse Ox
37.3 C 103 29 123/71 98
03/30/25 09:00 03/30/25 09:00 03/30/25 09:00 03/30/25 09:00 03/30/25 09:51
Lab Results
03/30/25 06:00
03/30/25 08:33
PT Cancelled 03/30/25 06:00
INR Cancelled 03/30/25 06:00
APTT 38.6 Sec (23.4-35.0) H 03/30/25 08:33
Sodium 140 mmol/L (135-145) 03/30/25 08:33
Potassium 4.1 mmol/L (3.5-5.1) 03/30/25 08:33
BUN 38 mg/dl (9-20) H 03/30/25 08:33
Glucose 134 mg/dl (70-99) H 03/30/25 08:33
Calcium 8.7 mg/dl (8.4-10.2) 03/30/25 08:33
LDL Cholesterol, Calc 50 mg/dl 03/30/25 01:21
Patient Allergies
No Known Allergies Allergy (Unverified 03/29/25 15:53)
Review of Systems
-
Unable to obtain full review of systems at this time due to: Patient Intubation
History Source: Patient
All other systems: Reviewed and negative
Physical Exam
-
General: No Apparent Distress, Intubated and Appears Stated Age
Eyes: OU Absent Papilledema, Able to visualize OU, Round OU and [place] Conjunctivae
HEENT: Anicteric and Moist Mucous Membranes
Neck: Full Range of Motion
Respiratory: No Dyspnea
Cardiac: No JVD
GI: Non-distended
Skin: Unremarkable
Extremities: No Clubbing, No Cyanosis and Edema +1 (Throughout)
Psych: Unable to Assess
Extended Neurological Exam
Mood & Affect: Unable to Assess
Attention Span & Concentration: Unresponsive to Verbal Stimuli, Unresponsive to Physical Stimuli and Other (Patient does spontaneously open eyes and maintains eyes open for greater than 30 seconds with rare blinking. Does not follow any requests);
Negative Awake, Alert or Interactive
Memory: Unable to Assess
Involuntary Movement: None
Speech: Unable to Assess
Cranial Nerve II: Left Eye: Pupillary Reactivity Unremarkable, Pupillary Size Unremarkable and Unable to Assess Visual Thompson
Cranial Nerve II: Right Eye: Pupillary Reactivity Unremarkable, Pupillary Size Unremarkable and Unable to Assess Visual Thompson
Cranial Nerves III, IV, : Extraocular Movement: Negative Absent Doll's Eyes
Cranial Nerve V: Facial Sensation: Unable to Assess
Cranial Nerve VII: Facial Symmetry: Normal Facial Symmetry
Cranial Nerves IX, X: Palate Movement: Unable to Assess
Cranial Nerve XI: Shoulder Shrug: Unable to Assess
Cranial Nerve XII: Tongue Protusion: Unable to Assess
Muscle Strength, Overall: Negative Spontaneously Moves
Muscle Bulk & Tone: Bulk Unremarkable and Tone Unremarkable
Pronator Drift: Unable to Assess
Deep Tendon Reflexes: Trace Throughout
Cold Sensation: Unable to Assess
Vibration Sensation: Unable to Assess
Touch Sensation: Negative Withdrawal to Pain
Coordination: Unable to Assess
Babinski Sign: Absent Bilaterally
Gait & Station: Unable to Assess
Data Reviewed
-
CT Head: Ordered
Labs: Ordered and Report Reviewed
Reviewed with: Nurse and Physician Diesel Engine Engineer
Old Records: Summarized
Medications
-
Active Medications
Generic Name Dose Route Start Last Admin
Trade Name Freq PRN Reason Stop Dose Admin
Allopurinol 100 mg 03/30/25 08:00 03/30/25 10:05
Allopurinol 100 Mg Tablet TUBE 04/27/25 07:59 100 mg
DAILY STACY Administration
Aspirin 81 mg 03/30/25 08:00 03/30/25 10:06
Aspirin 81 Mg (Enteric Coated) Tablet PO 04/27/25 07:59 81 mg
DAILY STACY Administration
Atorvastatin Calcium 40 mg 03/30/25 08:00 03/30/25 10:06
Atorvastatin (Lipitor) 40 Mg Tablet TUBE 04/27/25 07:59 40 mg
DAILY STACY Administration
Ceftriaxone Sodium 2,000 mg 03/30/25 10:00 03/30/25 10:06
Ceftriaxone 2,000 Mg/20 Ml Vial IV 2,000 mg
Q24H STACY Administration
Dextrose 12.5 grams 03/29/25 23:38
Dextrose 50% (0.5 Grams/Ml) 50 Ml Syringe IV 04/26/25 23:37
[id number] PRN
hypoglycemia
Protocol
Famotidine 20 mg 03/30/25 08:00 03/30/25 10:05
Famotidine 20 Mg Tablet TUBE 04/27/25 07:59 20 mg
BID STACY Administration
Fentanyl Citrate 50 mcg 03/29/25 23:07
Fentanyl (50 Mcg/Ml) 100 Mcg/2 Ml Ampul IV 04/12/25 23:06
[id number] PRN
see protocol
Protocol
Glucagon 1 mg 03/29/25 23:38
Glucagon 1 Mg Vial IM 04/26/25 23:37
PRN PRN
hypoglycemia
Protocol
Hydrocortisone Sodium Succinate 25 mg 03/30/25 10:00 03/30/25 10:07
Hydrocortisone Sodium Succinate 100 Mg/2 Ml Vial IV 04/27/25 09:59 25 mg
Q12 STACY Administration
Diltiazem HCl 125 mg in 125 mls @ 0 mls/hr 03/29/25 23:00 03/30/25 02:36
Cardizem IV 125 mls
PER PROTOCOL STACY Administration
Protocol
Per Protocol
Fentanyl Citrate 1,000 mcg in 100 mls @ 0 mls/hr 03/29/25 23:15 03/29/25 23:44
Sublimaze IV 100 mls
PER PROTOCOL STACY Administration
Protocol
Per Protocol
Heparin Sodium 25,000 units in 250 mls @ 0 mls/hr 03/29/25 23:45 03/30/25 02:16
Heparin [id number] Units/250 Ml IV 250 mls
PER PROTOCOL STACY Administration
Protocol
Per Protocol
Propofol 1,000,000 mcg in 100 mls @ 0 mls/hr 03/29/25 23:45 03/30/25 06:04
Diprivan IV 100 mls
PER PROTOCOL SATCY Administration
Protocol
Per Protocol
Insulin Aspart 0 units 03/30/25 07:30 03/30/25 08:36
Insulin Aspart Low Resistance 300 Units/3 Ml Pen.Injctr SC 04/27/25 07:29 Not Given
AC STACY
Protocol
Metoprolol Tartrate 25 mg 03/30/25 10:00 03/30/25 10:06
Metoprolol 25 Mg Regular Release Tablet PO 04/27/25 09:59 25 mg
BID STACY Administration
Abiraterone Acetate 250 mg 03/30/25 08:00
250 Mg Po Qid PO 04/27/25 07:59
QID STACY
Polyethylene Glycol 17 grams 03/30/25 08:00 03/30/25 10:05
Polyethylene Glycol Powder 17 Grams Packet TUBE 04/27/25 07:59 17 grams
DAILY STACY Administration
Sodium Chloride 0 flush 03/29/25 23:00
Sodium Chloride 0.9% (Flush) Syringe IV 04/26/25 22:59
PER PROTOCOL STACY
Sterile Water 20 ml 03/30/25 10:00 03/30/25 10:06
Sterile Water For Injection 20 Ml Vial IV 04/27/25 09:59 20 ml
Q24H STACY Administration
Past History
Past History
ED Past Medical History: Cancer (Prostate 2012 treated with XRT and hormonal therapy relapsed 2023), Hypercholesterolemia and Other (Right lower lobe pneumonia, gout, cardiac arrest with ROSC March 2025); Negative Renal failure (Acute kidney injury)
ED Past Surgical History: Other (Left carpal tunnel syndrome presumably with repair, percutaneous cholecystotomy tube)
Social History
Tobacco: Smoker
Alcohol: Occasional
Personal:
Living: with family
Employment: Employed
Family History
Family History: Other (Reviewed and noncontributory)
[2025-03-30 10:47] LABS: Digoxin < 0.4 ng/ml (0.8-2.0)
--- NOTE | 2025-03-30 11:08 | RESPNOTE ---
Respiratory: @0908 ETT advanced to 27cm @ lip with CEPHALOMETRIC ANALYST at bedside. ETT secure and suctioned catheter passed with ease. Suctioned for moderate amount winter secretions.
--- NOTE | 2025-03-30 11:11 | PTCARENOTE ---
pt transported to and from CT without incident.
--- NOTE | 2025-03-30 11:47 | PTCARENOTE ---
US at bedside
--- NOTE | 2025-03-30 11:48 | WOUNDNOTE ---
DANIKA QUARLES NOTE: Followed up with nurse Tapia, confirmed patient has one stage 1 PI that patient was admitted with on sacrum. Recommended silicone foam to sacrum and can cancel consult. Will sign off unless needed.
[2025-03-30 12:28] LABS: Glucose - Point of Care 148 mg/dl (70-99)
--- NOTE | 2025-03-30 12:48 | PTCARENOTE ---
Family at bedside, updated.
--- NOTE | 2025-03-30 13:44 | CM ---
Reviewed chart. Met with Mrs. King and his son, Rob to review discharge plans. She states prior to admission he resides with her in a two story home with fourteen steps to enter. She states he has another fourteen steps to get to bedroom/full
bathroom. She states he has a powder room on the first floor. She states prior to admission he was independent with ambulation and adls. She states prior to admission he does not have any DME in the home. She states he has a prescription plan.
She states he has not been out of bed for two weeks. We briefly review needing some level of rehab. prior to going home. Will need to see his functional level when he is able to see if he will have any skilled care needs. He will need pre-cert
for any level of rehab. If he qualifies for acute rehab: [facility] [place] [facility] close to them. Medical work-up in progress. The discharge plan is some level of rehab. when medically stable.
--- NOTE | 2025-03-30 14:33 | CON.ONC ---
Impression
Impression
Hormone resistant metastatic prostate cancer
Severe mitral valve disease, will require surgery
Possible endocarditis
Possible iatrogenic adrenal insufficiency
Acute cholecystitis, drain in place
Plan
Plan
It would make sense to stop the Abiraterone. He was taking prednisone 10 mg daily in conjunction with this. I have some concern about adrenal insufficiency, although the cardiothoracic service tells me that his doctors at the other hospital were
aware of this and were slowly tapering it. An ACTH stimulation test could be done to confirm functioning adrenal glands. Other than that, I have little else to add at this point.
His does tell me that he is due for another leuprolide injection in 1 to 2 weeks. If he is still in the hospital, I would recommend that he receive that.
Patient History
History of Present Illness
Consult from Dr. Lowery regarding prostate cancer
This 69-year-old man was transferred in anticipation of mitral valve repair and/or replacement. He was found to have a very incompetent mitral valve, there is concern for vegetation. He reportedly was growing gram-positive cocci in pairs and
clusters. He had a cardiac arrest in the hospital. He was transferred here on life support with minimal neurologic reactivity.
He has a history of hormone resistant prostate cancer, treated at [facility] with abiraterone and prednisone. His PSAs have been less than 1, but apparently were rising from 0.1 up to 0.6.
Patient Medication
Active Medications
Generic Name Dose Route Start Last Admin
Trade Name Freq PRN Reason Stop Dose Admin
Allopurinol 100 mg 03/30/25 08:00 03/30/25 10:05
Allopurinol 100 Mg Tablet TUBE 04/27/25 07:59 100 mg
DAILY STACY Administration
Aspirin 81 mg 03/30/25 08:00 03/30/25 10:06
Aspirin 81 Mg (Enteric Coated) Tablet PO 04/27/25 07:59 81 mg
DAILY STACY Administration
Atorvastatin Calcium 40 mg 03/30/25 08:00 03/30/25 10:06
Atorvastatin (Lipitor) 40 Mg Tablet TUBE 04/27/25 07:59 40 mg
DAILY STACY Administration
Ceftriaxone Sodium 2,000 mg 03/30/25 10:00 03/30/25 10:06
Ceftriaxone 2,000 Mg/20 Ml Vial IV 2,000 mg
Q24H STACY Administration
Dextrose 12.5 grams 03/29/25 23:38
Dextrose 50% (0.5 Grams/Ml) 50 Ml Syringe IV 04/26/25 23:37
[id number] PRN
hypoglycemia
Protocol
Famotidine 20 mg 03/30/25 08:00 03/30/25 10:05
Famotidine 20 Mg Tablet TUBE 04/27/25 07:59 20 mg
BID STACY Administration
Fentanyl Citrate 50 mcg 03/29/25 23:07
Fentanyl (50 Mcg/Ml) 100 Mcg/2 Ml Ampul IV 04/12/25 23:06
[id number] PRN
see protocol
Protocol
Glucagon 1 mg 03/29/25 23:38
Glucagon 1 Mg Vial IM 04/26/25 23:37
PRN PRN
hypoglycemia
Protocol
Hydrocortisone Sodium Succinate 25 mg 03/30/25 10:00 03/30/25 10:07
Hydrocortisone Sodium Succinate 100 Mg/2 Ml Vial IV 04/27/25 09:59 25 mg
Q12 STACY Administration
Diltiazem HCl 125 mg in 125 mls @ 0 mls/hr 03/29/25 23:00 03/30/25 10:27
Cardizem IV 125 mls
PER PROTOCOL STACY Administration
Protocol
Per Protocol
Fentanyl Citrate 1,000 mcg in 100 mls @ 0 mls/hr 03/29/25 23:15 03/29/25 23:44
Sublimaze IV 100 mls
PER PROTOCOL STACY Administration
Protocol
Per Protocol
Heparin Sodium 25,000 units in 250 mls @ 0 mls/hr 03/29/25 23:45 03/30/25 02:16
Heparin [id number] Units/250 Ml IV 250 mls
PER PROTOCOL STACY Administration
Protocol
Per Protocol
Propofol 1,000,000 mcg in 100 mls @ 0 mls/hr 03/29/25 23:45 03/30/25 10:27
Diprivan IV 100 mls
PER PROTOCOL STACY Administration
Protocol
Per Protocol
Insulin Aspart 0 units 03/30/25 07:30 03/30/25 12:41
Insulin Aspart Low Resistance 300 Units/3 Ml Pen.Injctr SC 04/27/25 07:29 Not Given
AC STACY
Protocol
Metoprolol Tartrate 25 mg 03/30/25 10:00 03/30/25 10:06
Metoprolol 25 Mg Regular Release Tablet PO 04/27/25 09:59 25 mg
BID STACY Administration
Abiraterone Acetate 250 mg 03/30/25 08:00
250 Mg Po Qid PO 04/27/25 07:59
QID STACY
Polyethylene Glycol 17 grams 03/30/25 08:00 03/30/25 10:05
Polyethylene Glycol Powder 17 Grams Packet TUBE 04/27/25 07:59 17 grams
DAILY STACY Administration
Sodium Chloride 0 flush 03/29/25 23:00
Sodium Chloride 0.9% (Flush) Syringe IV 04/26/25 22:59
PER PROTOCOL STACY
Sterile Water 20 ml 03/30/25 10:00 03/30/25 10:06
Sterile Water For Injection 20 Ml Vial IV 04/27/25 09:59 20 ml
Q24H STACY Administration
Review of Systems
-
All Other Systems: Reviewed and Negative
Physical Exam
-
Examination shows an elderly male who appears to be comatose on the ventilator.
HEENT exam is unremarkable.
The chest is clear but with coarse breath sounds.
Heart reveals a loud holosystolic murmur.
The abdomen is soft and nontender with no organomegaly or masses.
Extremities are unremarkable.
Neurologic is grossly intact.
Labs
Lab Results
WBC Cancelled 03/30/25 06:00
RBC Cancelled 03/30/25 06:00
Hgb Cancelled 03/30/25 06:00
Hct Cancelled 03/30/25 06:00
MCV Cancelled 03/30/25 06:00
MCH Cancelled 03/30/25 06:00
MCHC Cancelled 03/30/25 06:00
RDW Cancelled 03/30/25 06:00
Plt Count Cancelled 03/30/25 06:00
MPV Cancelled 03/30/25 06:00
Abs Immat Gran (auto) Cancelled 03/30/25 06:00
Absolute Neuts (auto) Cancelled 03/30/25 06:00
Absolute Lymphs (auto) Cancelled 03/30/25 06:00
Absolute Monos (auto) Cancelled 03/30/25 06:00
Absolute Eos (auto) Cancelled 03/30/25 06:00
Absolute Basos (auto) Cancelled 03/30/25 06:00
Immature Gran % Cancelled 03/30/25 06:00
Neutrophils % Cancelled 03/30/25 06:00
Lymphocytes % Cancelled 03/30/25 06:00
Monocytes % Cancelled 03/30/25 06:00
Eosinophils % Cancelled 03/30/25 06:00
Basophils % Cancelled 03/30/25 06:00
Creatinine 0.9 mg/dL (0.7-1.3) 03/30/25 08:33
Vital Signs
Vital Signs
Temp Pulse Resp BP Pulse Ox
98.3 F 99 22 105/64 97
03/30/25 14:00 03/30/25 14:00 03/30/25 14:00 03/30/25 14:00 03/30/25 14:00
--- NOTE | 2025-03-30 15:31 | PTCARENOTE ---
pt transported to and from CT again without incident. Perc drain flushed and dressing changed. Echo at bedside.
--- NOTE | 2025-03-30 15:49 | CARDSERVLU ---
Echocardiogram with Lumason completed after protocol screening completed. Allergies verified.
Patent IV site: __Rt hand___
IV site flushed with 0.9% NaCl pre and post administration.
Diluted bolus method utilized to enhance visualization of ventricular maier.
Total volume given: ___2.0_ mL
Patient tolerated all procedures well without complications.
--- NOTE | 2025-03-30 16:06 | PTCARENOTE ---
pt sent to [facility]
--- NOTE | 2025-03-30 17:21 | ITS.CL.CATH ---
Addendum entered and electronically signed by Rom Oro DO 03/30/25 18:09:
Copy To: Aashish Rodirguez M.D.
Original Note:
[facility] - Catheterization
Cardiac Catheterization
Procedure Report:
CARDIAC CATHETERIZATION REPORT
Date of Procedure: 03/30/2025
Referring: Pascual Johnson M.D.
INDICATION: Severe mitral valve regurgitation, premitral valve repair/replacement.
PROCEDURE:
1. Left heart catheterization.
2. Coronary angiography.
A total of 0 80/58/66 minutes of procedural/moderate sedation was utilized. An independent pesticide use medical coordinator was present to assist with and help manage the patient's level of consciousness and physiologic status.
ACCESS:
1. 6 [place] right radial artery using a modified Seldinger technique under ultrasound guidance.
CATHETERS:
1. 5 [place] JR4.
2. 5 [place] JL 3.5.
HEMODYNAMIC DATA
Weight (kg): 102.5
AO (s/d/x, mmHg): 80/58/66
LV (s/x mmHg): 83/13
LEFT VENTRICULOGRAPHY: Not performed.
CORONARY ANGIOGRAPHY
Dominance: Right.
Left Main: Large size, trifurcating vessel. There is no coronary artery disease.
LAD: Large size vessel giving rise to 1 significant diagonal. There is no coronary artery disease.
Ramus: Large size vessel supplying the majority of the anterolateral wall. There is no coronary artery disease.
Circumflex: Large size, nondominant vessel giving rise to 1 obtuse marginal. There is no coronary artery disease.
RCA: Large size, dominant vessel with moderate tortuosity and a significant posterolateral arcade. There is no coronary artery disease.
INTERVENTION(S)
None.
Closure Device: Vascular band.
Radiation (mGy): 349.97
DAP (cm2.Gy): 31.6595
Fluoroscopy time (minutes): 3.7
CONCLUSIONS
1. Right dominant circulation with no coronary artery disease
2. Top normal to mildly elevated filling pressures (LVEDP = 13 mmHg at 102.5 kg).
3. Relative central hypotension (aortic systolic pressure 80 mmHg, mean pressure 66 mmHg), better on peripheral A-line (systolic blood pressure of 100), likely due to amplification effect.
RECOMMENDATIONS:
1. Expectant management after cardiac catheterization via right radial approach.
2. Limited weight bearing on the right wrist for one week.
3. Continued evaluation for possible mitral valve repair/replacement.
4. Titrate pressor/inotropes for mean arterial pressure >65 mmHg.
Copy to: Pascual Johnson M.D., Kaushik Vann M.D.
Rom Oro DO, FACC, FACP
--- NOTE | 2025-03-30 17:49 | PTCARENOTE ---
pt returned from [facility], radial band to right wrist. Sedation placed on standby. SBT in progress. family at bedside, updated.
[2025-03-30 18:09] LABS: Ammonia < 9 umol/L (9-30)
[2025-03-30 18:25] LABS: B.E. - POC 2.8 mmol/L; Blood Urea Nitrogen - POC 35 mg/dl (3-120); Chloride - POC 116 mmol/L (96-111); Creatinine - POC 0.79 mg/dl (0.3-1.0); Glucose - POC 152 mg/dl (70-99); HCO3 - POC 27 mmol/L (21-28); Hematocrit - POC 31 % PCV (42-52); Hemodilution- POC No; Hemoglobin Calculated - POC 10.5; Ionized Calcium - POC 1.17 mmol/L (1.15-1.33); O2 Saturation %Calculated-POC 99.9 % (94-98); PCO2 - POC 41 mmHg (35-48); PO2 - POC 317 mmHg (83-108); Sodium - POC 141 mmol/L (136-145); Specimen Type - POC Arterial; pH - POC 7.43 (7.35-7.45)
--- NOTE | 2025-03-30 18:25 | PTCARENOTE ---
SBT ended, HR 115 bp 140/63, pox 99, RR 30. Propofol reestablished at 20mcg, fentanyl 25mcg. Pt suctioned for copious amounts of bloody secretions via ETT and orally.
[2025-03-30 19:31] LABS: TSH Reflex To Free T4 1.86 uIU/ml (0.47-4.68)
--- NOTE | 2025-03-30 19:44 | CON.ID ---
Consultation
-
Date/Time Consultation Requested: March
Date/Time Consultation Performed: March
Requesting Provider: Dr Pascual Johnson
Performing Provider: Dorota Griffith MD
Reason for Consultation: endocarditis
Chief Complaint / Past History
Chief Complaint
The patient was transferred to this facility for higher level of care. The patient has moderate/severe MR, status post cardiac arrest 03/17/with recent TONE showing severe MR cannot rule out vegetation/ruptured cords. Patient is being evaluated for
possible repair or replacement of MV
History of Present Illness
Patient with complicated hospitalization for treatment of pneumonia where he was found to have AF/RVR with strep viridans bacteremia followed by cardiac arrest. He was found to have cholecystitis with cholecystotomy tube placement and decompression
of gallbladder. CT scan of chest abdomen pelvis was done showing pulmonary with small bilateral effusions and likely atelectasis rather than pneumonia, decompressed gallbladder, normal bowel, atrophic prostate,
Past History
Past Medical History: Cancer (Prostate cancer diagnosed 2013 with intermittent relapses in 2015 and 2023 with increasing PSA at this time) and Hypercholesterolemia
Additional Past Medical History:
Recent dental work with poor dentition, recent pneumonia treated at Urgent care center, currently intubated and ventilator dependent status post cardiac arrest
Past Surgical History: None
Allergy History:
No Known Allergies Allergy (Unverified 03/29/25 15:53)
Medications Reviewed: Yes
Social History
Tobacco: Smoker
Alcohol: Occasional
Drug: None
Personal:
Living: With Family
Employment: Employed
Family History
Family History: CAD (Early CAD with father age 50 from [place])
Review of Systems
Review of Systems
Unable to obtain full review with patient intubated
Vital Signs
Temp Pulse Resp BP Pulse Ox
97.3 F 111 22 112/71 100
03/30/25 19:00 03/30/25 19:00 03/30/25 19:00 03/30/25 16:00 03/30/25 19:00
Physical Exam
Physical Exam
Constitutional: Comfortable, Acutely Ill and Obese (Patient currently intubated and ventilator dependent And sedated)
Head: Normocephalic
Eyes: Pupils Equal, Pupils Round, No Conjunctival Hemorrhage and Sclera Anicteric
Pharynx: Other (Unable to assess)
Oral: Poor Dentition
Cardiovascular: Irregular Rate
Pulmonary: Other (Intubated and ventilator dependent with adequate oxygen saturation)
Gastrointestinal: Non Distended and Decreased Bowel Sounds
Genito-Urinary: Christian and Hematuria
Extremities: Edema
Skin: Warm and Dry
Neurological: Other (Sedated but responds to painful stimuli)
Psychological: Calm
Lab / Diagnostic Study Results
03/30/25 06:00
03/30/25 08:33
Abs Immat Gran (auto) Cancelled 03/30/25 06:00
Absolute Neuts (auto) Cancelled 03/30/25 06:00
Absolute Lymphs (auto) Cancelled 03/30/25 06:00
Absolute Monos (auto) Cancelled 03/30/25 06:00
Absolute Basos (auto) Cancelled 03/30/25 06:00
Immature Gran % Cancelled 03/30/25 06:00
Neutrophils % Cancelled 03/30/25 06:00
Lymphocytes % Cancelled 03/30/25 06:00
Monocytes % Cancelled 03/30/25 06:00
Eosinophils % Cancelled 03/30/25 06:00
Basophils % Cancelled 03/30/25 06:00
PT Cancelled 03/30/25 06:00
INR Cancelled 03/30/25 06:00
Lactic Acid 0.8 mmol/L (0.7-2.0) 03/30/25 01:21
Microbiology Results
Micro:
03/30/25 01:22 Blood Culture - Pending
Blood/Venous
03/30/25 01:54 Blood Culture - Pending
Blood/Venous
03/30/25 01:21 MRSA Screen - Pending
Nose
Assessment / Plan
1. Patient transferred to this facility for possible repair/replacement of abnormal MV
2. Patient with bacteremia on prior admission with Streptococcus viridans
3. Patient with cholecystitis requiring decompression in setting of acute cholecystitis treated with piperacillin/tazobactam
4. Per patient with recent dental visit in setting of very poor dentition
5. Several weeks ago patient diagnosed in urgent care facility with right lower lobe pneumonia/bronchitis treated with azithromycin and Ceftin
6. Current repeat blood cultures pending
7. WBC 17.6 /T 97.4
8. Patient currently off antibiotic
9. CTA chest /abdomen/Pelvis done today
.Thank you for calling infectious disease consultation for your patient.
The ID team will continue to follow with you
Care Review
Plan reviewed with: Other Provider and Other (Patient discussed with family at bedside)
Total Time Spent with Patient (in minutes): 55
[2025-03-30 20:06] LABS: Vitamin B12 941 pg/ml (239-931)
[2025-03-30] MEDS: LOPRESSOR 25 MG TUBE (20:39)
--- NOTE | 2025-03-30 21:00 | PTCARENOTE ---
Patient received intubated/ventilator. #8.0 ETT 26cm center lip. Ventilator settings: AC 12 TV 450 PEEP 5 FiO2 40%. SpO2 98%. Patient will open eyes to painful stimulation but does not tract. Pupils size 2 with sluggish reaction. Positive gag
reflex. Mouth care provided. Patient does not follow simple verbal commands. No extremity movement noted. Hand grasps absent. No adventitious breath sounds noted. Diminished lung sounds. Small amount of secretions. Initially, blood tinged.
Atrial Fibrillation. Heart rate 90-120's. Cardizem gtt at 15 mg/hr (15 ml/hr). Abdomen soft, round, nondistended. Hypoactive bowel sounds. No BM. No vomiting. Small bore ([place]) Feeding tube via left nare - Intact and patent - Flushes
without difficulty. Medication administration. Biliary drain intact. Christian catheter - Alanis with sediment - Outputs as documented. Generalized edema. Positive, palpable pulses. Right radial TR Band - All air removed - No bleeding noted. Left
radial arterial line - Intact - Zeroed and calibrated - Flushes without difficulty. Left subclavian T.L.C intact. Fentanyl gtt, Propofol gtt and Cardizem gtt. Assessment as documented.
--- NOTE | 2025-03-30 21:35 | PTCARENOTE ---
Patient's IV Heparin gtt restarted at 1,200 units/hr (12 ml/hr) per order. PA for CT Surgery, Mohan Mann PA-C, made aware of restart. PTT to be drawn 6hrs after restart. TR Band off - Dressing intact - No bleeding noted. Assessment as
documented.
[2025-03-31] VITALS (32 sets, daily range): BP systolic 76–138; BP diastolic 45–90; BMI 29.8
--- NOTE | 2025-03-31 00:30 | PTCARENOTE ---
Respiratory Therapist changed endotracheal tapia without difficulty. Endotracheal tube moved to right side. Mouth care provided. Assessment/Interventions as documented.
[2025-03-31 00:46] LABS: Glucose - Point of Care 162 mg/dl (70-99)
[2025-03-31] MEDS: DIPRIVAN 100 IV (00:53)
[2025-03-31] MEDS: SUBLIMAZE 100 IV (01:00)
[2025-03-31] MEDS: NOVOLOG FLEXPEN-LOW RESISTANCE 1 UNITS SC ×2 (01:13→18:02)
--- NOTE | 2025-03-31 01:16 | W.PN.CT ---
Today's Communication / Plan
-
Plan:
-Ongoing preop evaluation/workup
-Will wean off sedation
-Wean to extubate today
-Cont. Cardizem gtt, heparin gtt for PAF
-Cont. BB
-Maintain pacheco catheter, hematuria noted
-Appreciate consultants input
-For possible MV repair/replacement/MAZE/GARRY clip by Dr. Johnson Tuesday 04/03
Assessment / Plan
-
Assessment:
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
-Mild TR
-Mild AI
-Trivial pericardial effusion
-LVEF 60-65%
-Cardiac arrest S/P CPR with ROSC, 03/17/25
-Afib/flutter s/p unsuccessful TONE cardioversion, 03/27/25
-Bradycardia
-Hypotension
-Reported TTM
-Prostate ca (since 2012 which was treated with XRT and Hormone Therapy - Abiraterone; relapse 2015 treated with cryotherapy; relapse again in 2023 and being treated with Abiraterone)
-Elevated liver enzymes @ [facility]
-Acute cholecystitis S/p cholecystostomy tube placement, 03/19/25
-FELIZ @ [facility]
-Hyperlipidemia
-Hypokalemia
-Gout
-Class 2 obesity
-Poor dentition
-Hematuria
-Sacral decubitus ulcer (stage 1)
-Former tobacco use (1/2-2 ppd x 40 yrs, quit 10 yrs ago)
-ETOH use (1 beer/wk)
-S/P VDRF
-S/P Left carpel tunnel
-S/P VDR
-S/P CPR with ROSC, 03/16/25
-S/P Percutaneous cholecystostomy tube placement, 03/19/25
Discussed patient care with: Cardiology, Nursing, Respiratory Therapy, Pharmacy and Care Team
Subjective
-
Date of Service: March 31, 2025
Pt remains intubated and sedated, will wean off sedation today
Objective Data
-
PT Cancelled 03/30/25 06:00
INR Cancelled 03/30/25 06:00
APTT Cancelled 03/30/25 15:00
Vital Signs
Vital Signs
Temp Pulse Resp BP Pulse Ox
98.3 F 88 20 87/54 100
03/31/25 00:00 03/31/25 00:00 03/31/25 00:00 03/31/25 00:00 03/31/25 00:00
CT Intake/Output/Weight
03/30/25 03/30/25 03/31/25
06:59 18:59 06:59
Intake Total 630.1 / 630.1 377.8 / 681.9 304.1 / 681.9
Output Total 820 / 820 940 / 1535 595 / 1535
Balance -189.9 / -189.9 -562.2 / -853.1 -290.9 / -853.1
SaO2: 100 (A/C, 450, 12, 5, 40%)
Physical Exam
-
General: Other (sedated and intubated)
Cardiovascular: Irregular rate & rhythm and Murmur (2-3/6 systolic )
Respiratory: Decreased Breath Sounds (at bases, otherwise clear)
Sternum: Stable
Incision: Clean, Dry, Intact and Dressing Intact
Extremities: Edema +2 (UE) and Other
+trace edema @LE
Abdomen: +BS, soft, cholecystostomy drain intact
Data Reviewed
-
Lab Results: Results Reviewed
Medications: Active Meds Reviewed
Chest X-Ray: Report Reviewed and Image Reviewed
ECG: Report Reviewed and Image Reviewed
[2025-03-31 04:09] LABS: Hematocrit 25.9 % (39.0-52.0); Hemoglobin 8.2 g/dL (13.0-18.0); Mean Corp Hgb Conc. 31.7 g/dL (33.0-37.0); Mean Corpuscular Hgb 28.6 pg (27.0-31.0); Mean Corpuscular Volume 90.2 fL (80.0-94.0); Mean Platelet Volume 12.4 fL (7.4-10.4); Platelet Count 219 10^3/uL (130-400); Red Blood Cell Count 2.87 10^6/uL (4.70-6.10); Red Cell Dist. Width 16.8 % (11.5-14.5); White Blood Cell Count 15.4 10^3/uL (4.8-10.8)
[2025-03-31 04:12] LABS: APTT 32.1 Sec (23.4-35.0)
[2025-03-31 04:21] LABS: HCO3 24.4 mmol/L (21-28); Ionized Calcium 1.19 mMOL/L (1.15-1.33); O2 Saturation % 99.1 % (94-98); PCO2 32 mmHg (35-48); PO2 98 mmHg (83-108); pH 7.49 (7.35-7.45)
[2025-03-31 04:48] LABS: ALT (SGPT) 83 U/L (0-50); AST (SGOT) 47 U/L (17-59); Albumin 2.8 g/dl (3.5-5.0); Alkaline Phosphatase 88 U/L (38-126); Blood Urea Nitrogen 38 mg/dl (9-20); Calcium 8.5 mg/dl (8.4-10.2); Carbon Dioxide 24 mmol/L (22-30); Chloride 112 mmol/L (98-107); Glucose 120 mg/dl (70-99); Magnesium 2.1 mg/dl (1.6-2.3); Potassium 4.1 mmol/L (3.5-5.1); Sodium 142 mmol/L (135-145); Total Bilirubin 1.1 mg/dl (0.2-1.3); Total Protein 6.1 g/dl (6.3-8.2); eGFR > 60.00
--- NOTE | 2025-03-31 05:00 | PTCARENOTE ---
Patient's Fentanyl gtt and Diprivan gtt off per PA. Patient continues on IV Heparin gtt and Cardizem gtt. Patient now coughing frequently setting off ventilator alarm. Suctioned multiple times for thick tannish, blood tinged secretions. Mouth
care provided. Whitish, thrush appearing plaque on tongue. Pupils size 2 with brisk reaction. Patient does not tract. Patient does not follow simple verbal commands. Left shoulder shrug noted. Patient does not move right upper extremity.
Patient does not move bilateral lower extremities. PTT result 32.1. Increase IV Heparin gtt 200 units/hr. IV Heparin now infusing at 1400 units/hr (14 ml/hr). PTT six hours after rate change. Christian catheter lisa, blood tinged urine - PA for CT
Surgery aware. Assessment/Interventions as documented.
[2025-03-31] MEDS: LOPRESSOR 5 MG IV (05:30)
[2025-03-31] MEDS: CARDIZEM 125 IV (05:37)
[2025-03-31 05:51] LABS: Glucose - Point of Care 125 mg/dl (70-99)
[2025-03-31] MEDS: NOVOLOG FLEXPEN-LOW RESISTANCE SC ×3 (05:52→23:19)
--- NOTE | 2025-03-31 06:30 | PTCARENOTE ---
0620 Ventilator setting changed to SIMV Rate 12 TV 450 PEEP 5 PS 5 FiO2 40%. Patient tolerating SIMV settings. Patient now making eye contact. Positive left hand grasp. Patient able to wiggle toes. Assessment/Interventions as documented.
--- NOTE | 2025-03-31 08:00 | PTCARENOTE ---
assumed care of pt from previous shift RN. walking rounds completed. Pupils +2, reactive but sluggish. sedation off already at change of shift. patients eyes open and following most commands. trouble tracking. afib on monitor. HR 130-150s. VSS. +
pulses, +2 generalized edema. #8 ETT/26 L lip. 97%SIMV 12/450/+5/40%. lungs diminished with occasional bloody secretions. thick oral secretions. Left nare DHT present and patent. hypoactive BS. No BM. Christian draining punch colored urine. Right
abdominal drain w brown bilious drainage. hep gtt infusing at ordered rate, cardizem @15 mg, propfol and fentanyl on standby. will continue to monitor.
--- NOTE | 2025-03-31 08:11 | W.PN.INTV ---
Today's Communication / Plan
Recommendations
Mechanical ventilation with SAT/SBT
Given the bilateral pleural effusions with severe MR with possible flail component, would extubate to BiPAP if he is stable for extubation
Defer mitral valve intervention to cardiothoracic surgery
Continue antibiotics per ID
Follow-up surveillance blood cultures checked on 03/30/2025
Stress ulcer prophylaxis
Monitor hematuria and trend H&H + platelet count especially while on heparin drip; low threshold to consult urology
Check respiratory culture from ETT
If stupor does not improve then would consider checking EEG +/- MRI brain
Continue amiodarone drip
Guarded prognosis
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
Assessment
-
Assessment: 69-year-old male former tobacco smoker with a past medical history of of gout, prostate cancer (diagnosed 2012) s/p XRT with relapse in 2015 s/p cryotherapy, and another relapse in 2023 currently being treated with abiraterone, and
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 Patient has a known history of moderate to severe mitral regurgitation, with last echo done here at from 04/16/2024 showing posterior MV
leaflet prolapse with moderate mitral regurgitation and LVEF 55 to 60%. Patient was following with cardiology with Dr. Rodriguez at the time. Patient was asymptomatic at the time and repeat echo was ordered for April 07, 2025. The patient developed
generalized malaise with intermittent dry cough and diarrhea for 2 weeks and he went to urgent care [employer]. RLL pneumonia/bronchitis was suspected at urgent care and he was prescribed Zithromax + Ceftin. Patient saw his PCP on 03/16/2025 and found to
be in new onset A-fib with RVR and was sent to [facility]. While at [facility], he was started on Cardizem gtt + esmolol gtt. patient cardiac arrested on 03/17 which was preceded by bradycardia and then asystole, and received ROSC after 2 amps
of epinephrine and 1 amp of bicarb. Per documentation, patient underwent TTM. Evaluation for an acute PE was negative. Patient was found to be bacteremic reportedly with Streptococcus viridans. Patient also diagnosed with acute cholecystitis and
underwent percutaneous cholecystostomy tube placement by IR on 03/19. Patient had been started on antibiotics with Zosyn. Patient continued to be intubated since the day of his cardiac arrest on 03/17 with great difficulty weaning his sedation and
performing weaning trials due to tachycardia with hypertension and tachypnea. TONE performed on 03/27/2025 showed mildly thickened MV leaflets with P2 flail. Superimposed MV vegetation unable to be ruled out. Patient then transferred here to for
further evaluation for cardiothoracic intervention. [employer] Work[employer]ant service is now consulted for additional management/recommendations.
Chronic conditions [employer]: PVCs, aortic insufficiency, mitral valve prolapse with mitral regurgitation, hyperlipidemia, metastatic prostate cancer s/p XRT with relapse (2015) treated with cryotherapy, currently on hormone therapy due to second relapse
in 2023, hypothyroidism, gout
Impression:
#Ventilator dependent respiratory failure/acute hypoxic respiratory failure � intubated 03/17/2025 during in-hospital cardiac arrest at [facility]
#In-hospital cardiac arrest at [facility] on 03/17/2025 (reportedly, patient became bradycardic and then developed asystole with ROSC obtained after 2 amps epi and 1 amp bicarb) s/p TTM
#Acute encephalopathy and upward gaze preference (left eye > right eye) - no acute intracranial pathology on CTh from 03/30/2025
#Acute cholecystitis s/p percutaneous cholecystostomy tube placement (performed at [facility] on 03/19/2025) - bile fluid Cx reportedly negative as mentioned above
#Severe, eccentric mitral valve regurgitation with posterior leaflet MVP with reported P2 flail with possible vegetation
#New onset atrial fibrillation
#Hematuria
#Anemia
#Transaminitis (elevated ALT)
#Bacteremia due to Streptococcus viridans (per patient's family)
#Minimally displaced sternal fracture due to recent CPR
#Metastatic prostate cancer (diagnosed 2012) s/p XRT with relapse (2015) s/p cryotherapy and another relapse in 2023 currently being treated with abiraterone
#Gout
Plan:
- Unclear sequence of events, however seems as if he had an initial respiratory infection and then developed cardiac arrest, likely due to subacute MV endocarditis with valve destruction leading to severe MR, and possible acute cholecystitis as a
result of critical illness (as no stone reported and reportedly the bile was cultured and showed no growth)
- s/p LHC on 03/30 showing right dominant circulation with no CAD with top normal�mildly elevated filling pressures (LVEDP: 13 mmHg)
- TTE performed on 03/30/2025 showed severe eccentric MR with posterior leaflet mitral valve prolapse and unable to exclude a flail segment, with moderate AI, normal RV size/function and normal LV size/function (LVEF: 60-65%) with no regional WMA
- Will need to obtain medical records from [facility]; may benefit from repeating TONE so have an updated view of his MV and re-assess for flail at P2, however a TONE with cardioversion was attempted on 03/27/2025 but was unsuccessful (unclear why)
- Pt has been intubated since 03/17, hence depending on plan, perhaps best course would be tracheostomy, however if cardiothoracic intervention recommended then would keep intubated as once the mitral valve is fixed then I believe that weaning him
off sedation and then performing a SBT would be more feasible without risk of acute flash pulmonary edema
- Continue with mechanical ventilation with daily SAT/SBT if clinically appropriate
- Given that he has bilateral small pleural effusions on his CT chest from 03/30, would extubate to BiPAP if he is appropriate for extubation
- While he remains intubated, maintain plateau pressure <30 and titrate FiO2 + PEEP to keep SpO2 >90-94%
- Continue aspiration precautions; keep HOB >30-45�
- prn nebulized bronchodilators - not currently bronchospastic
- Oropharyngeal + deep ETT suctioning with subglottic as needed
- Daily CXR + blood gas
- Daily vent adjustments as needed based on blood gas and SaO2
- Low level of sedation with goal RASS as 0 to -2
- Neurology consulted on 6/23 given his prolonged hospital course with reports of inappropriate awakening, however as of 03/31 he is opening his eyes to commands but remains encephalopathic and stuporous
- CT head on 03/30/2025 showed no acute intracranial abnormality; pt does continue
- If patient's stupor does not improve, then would consider EEG +/- MRI brain
- Neurology consulted and recs appreciated
- Try limiting NOZZLE TENDER altering medications and keep sedation at the lowest dose needed to maintain RASS 0 to -2 - -> now off propofol and fentanyl drips and on precedex gtt
- Continue with antibiotics, currently on ceftriaxone 2,000 mg IV q24hr
- ID consulted - recs appreciated
- Follow-up blood cultures x 2 drawn 03/30 + check respiratory culture from ETT (if able to obtain adequate sample)
- There is a mild retrocardiac opacity concerning for pneumonia, and CT chest from 03/30/2025 shows bibasilar consolidations likely due to compressive atelectasis from bilateral pleural effusions and less likely pneumonia however this is unable to
be ruled out - continue Abx and if pt spikes fever then would broaden Abx further to cover Pseudomonas; MRSA swab negative
- Trend WBC and monitor for fevers
- Trend LFTs
- Trend perc yasmany drain output
- Maintain MAP>65 - currently off all pressors
- Currently on hydrocortisone - will attempt to wean off --> tomorrow start 25mg IV daily and continue this for 3 days and then stop
- Maintain HR <110 --> continue with amiodarone drip
- Heparin gtt currently infusing; eventual TRX to NOAC
- Cardiology on board - recs appreciated
- Replete electrolytes with K>4, Mg>2
-Patient began having hematuria overnight, and he was also having hematuria while at [facility]
- Christian catheter in place
- Trend H/H and transfuse if needed to keep Hb>7-8g/dL; keep plt>50k
- Hematuria may be due to Christian catheter in the setting of heparin drip although he also has active prostate cancer so this may also be contributing
- Oncology already on board and recs appreciated
- Continue to monitor hematuria and if worsens then would consult urology for possible CBI; as of 03/31, there are no blood clots seen
- Maintain euglycemia with goal BG 140-180
- Stress ulcer ppx - pepcid
- Early nutrition - start tube feeds
- DVT ppx: Heparin gtt
Code status: Full code
Critical care statement: A total of 38 minutes of critical care time was provided for this patient today. This includes management of unstable vital signs, evaluation of the patient at bedside, reviewing the patient's pertinent medical records
including radiographs, microbiology, laboratory evaluations, and discussion with primary team, consultants, pharmacy, nutrition, physical therapy, case management, charge nurse, critical care nursing, and respiratory therapy.
Data:
Left heart catheterization 03/30/2025:
CONCLUSIONS
1. Right dominant circulation with no coronary artery disease
2. Top normal to mildly elevated filling pressures (LVEDP = 13 mmHg at 102.5 kg).
3. Relative central hypotension (aortic systolic pressure 80 mmHg, mean pressure 66 mmHg), better on peripheral A-line (systolic blood pressure of 100), likely due to amplification effect.
Transthoracic echocardiogram 03/30/2025:
Normal left ventricular size and systolic function.
Estimated LV ejection fraction is 60-65%.
Posterior leaflet mitral valve prolapse and sever mitral regugitation
Focal thickening of the aotic valve and mild to moderate aortic regurgitation
Compared to the previous echo report 04/16/24 the degree of mitral regurgitation
has increased ( previously moderate). the focal thickeniing fo the aortic
leaflet is more prominent.
CT Head 03/30/2025: No acute intracranial abnormality. Mild cerebral atrophy and mild microvascular changes within the periventricular white matter.
Subjective Dataa
Subjective Data
Date of Service:
Date of Service: March 31, 2025
Chief Complaint: [employer] Work[employer] Consultant Follow Up and Vent Management Follow Up
Subjective:
Patient seen and evaluated this morning. He is awakening to command but still remains extremely fatigued and quickly falls back asleep; currently sedated on Precedex at 0.3 mcg/kg/h. Heart rate 111 with BP via A-line: 124/72. End-tidal CO2: 28.
Currently on amiodarone at 1 mg/min. Intubated and currently on a CPAP trial on 02/09 with FiO2 40%. PIP: 12 cmH2O with VTe 383 cc and breathing at 31 breaths/min.
Review of Systems
General: Unobtainable - Sedation
Objective Data
Data Reviewed
Vital Signs / I&O / Oxygen:
Vital Signs
Temp Pulse Resp BP Pulse Ox
99.7 F 135 27 152/72 97
03/31/25 08:00 03/31/25 09:00 03/31/25 09:00 03/31/25 08:51 03/31/25 09:00
Intake and Output
03/30/25 03/31/25 04/01/25
06:59 06:59 06:59
Intake Total 630.1 / 630.1 896.7 / 925.7 58 / 58
Output Total 820 / 820 2060 / 2125 165 / 165
Balance -189.9 / -189.9 -1163.3 / -1199.3 -107 / -107
SaO2 [A/C] 97
SaO2 97
Physical Exam
General: Respiratory Distress (negative), Comfortable, Chills (negative) and Sweats (negative)
HEENT: Normocephalic, Anicteric and Other (ETT in place)
Cardiovascular: Irregular Rhythm, Peripheral Edema (+1 lower extremity pitting edema bilaterally) and Other (Tachycardic)
Respiratory: Wheeze (negative), Crackles (negative), Rhonchi (negative), Non-Labored Respirations and ET Tube (Mechanical breath sounds heard bilaterally)
GI: Soft, Non Distended, Non Tender and Normal Bowel Sounds
Neurology: Tremors (negative) and Other (Sedated, although opens eyes to command)
Skin: Warm, Dry, Cyanosis (negative) and Jaundice (negative)
Labs/Micro/Reports
Lab Data
03/31/25 03:42
Laboratory Results
03/30/25 03/31/25 03/31/25
15:00 03:42 06:00
APTT Cancelled 32.1
pH 7.49 H Cancelled
pCO2 32 L Cancelled
pO2 98 Cancelled
HCO3 24.4 Cancelled
O2 Delivery Level Cancelled
03/31/25
08:15
APTT
pH 7.51 H
pCO2 31 L
pO2 127 H
HCO3 24.7
O2 Delivery Level
Microbiology
03/30/25 01:21 Nose MRSA Screen - Final
No Methicillin Resistant Staphylococcus aureus isolated.
03/30/25 01:54 Blood/Venous Blood Culture - Preliminary
No Growth in 24 hours- Final report to follow
03/30/25 01:22 Blood/Venous Blood Culture - Preliminary
No Growth in 24 hours- Final report to follow
[2025-03-31 08:27] LABS: B.E. 1.9 mmol/L; HCO3 24.7 mmol/L (21-28); O2 Saturation % 99.2 % (94-98); PCO2 31 mmHg (35-48); PO2 127 mmHg (83-108); pH 7.51 (7.35-7.45)
--- NOTE | 2025-03-31 08:42 | W.PN.CD ---
Addendum entered and electronically signed by Braulio Dale MD 03/31/25 09:42:
Patient seen and examined in collaboration with CHECK AND TRANSFER BEADER; agree with below
- Patient remains intubated; critical.
- Will start amiodarone for A-fib with RVR.
- Hematuria noted; management as per primary team.
- Remains on a heparin drip for now; monitor H/H.
- CT Surgery to determine whether patient is an appropriate candidate for CT Surgery.
Original Note:
Today's Communication / Plan
-
Stop diltiazem gtt
Amiodarone bolus
Start amiodarone gtt
Continue heparin and monitor hematuria
Impression / Plan
-
I/P: 69M with moderate MR (flail P2) now severe, HLD, metastatic prostate cancer (on Abiraterone & prednisone), gout, and hypothyroidism presents as a transfer from [facility] ([facility]) with severe mitral regurgitation with possible
vegetation.
Outpatient Product Lister: Dr. Rodriguez
S/p PEA cardiac arrest 03/17/2025
-10 minutes od CPR prior to ROSC, epi x 2, no shocks -> TTM
-Reportedly did poorly on pressure support wean 03/29/2025 (respiratory alkalosis with high minute volume ventilation)
-Remains intubated and sedated, sedation wean this morning
-On stress dose steroids, he is on chronic prednisone 5mg BID as an outpatient
Atrial fibrillation with RVR
-Failed 03/27/25 DCCV, near immediate return of RVR
-Was on metoprolol, digoxin, and diltiazem at [facility], stop diltiazem gtt and start amiodarone gtt after 150mg bolus
-Oral anticoagulation: Heparin gtt
-[id number]: score at least 1 (age 65-74)
Severe sepsis - Bacteremia (Streptococcus viridans)
-ID consulted
Mitral regurgitation, severe
-Flail P2, seen on 2023 study with 'moderate mitral vegetation' -- typographical error for regurgitation?
Hematuria
-Initially resolved, returned, H&H later this morning
-Continue heparin for now
Volume overload
-Unclear cause, volume resuscitation with severe MR?
-LVEDP = 13 mmHg at 102.5 kg
Acute cholecystiti, perc yasmany tube placed at [facility] 03/19/2025, seen by GS this admit
Hypernatremia, resolved, briefly saw Nephrology at [facility]
Prostate cancer, metastatic, on Abiraterone
PVCs, burden 4.6% on Holter (2023)
Former smoker, continued cessation recommended
DATA:
Cardiac catheterization, 03/30/2025:
CONCLUSIONS
1. Right dominant circulation with no coronary artery disease
2. Top normal to mildly elevated filling pressures (LVEDP = 13 mmHg at 102.5 kg).
3. Relative central hypotension (aortic systolic pressure 80 mmHg, mean pressure 66 mmHg), better on peripheral A-line (systolic blood pressure of 100), likely due to amplification effect.
TTE, 03/30/2025:
Normal left ventricular size and systolic function.
Estimated LV ejection fraction is 60-65%.
Posterior leaflet mitral valve prolapse and severe mitral regurgitation
Focal thickening of the aortic valve and mild to moderate aortic regurgitation
Compared to the previous echo report 04/16/24 the degree of mitral regurgitation
has increased ( previously moderate). the focal thickening fo the aortic
leaflet is more prominent.
TONE, 03/27/2025:
Mild AR.
MV leaflets thickened. Flail P2. Vegetation cannot be excluded.
CT PE 03/16/2025:
Moderate pericardial effusion.
Bilateral pleural effusions, R > L.
Physical Exam
Vital Signs/Labs
Vital Signs
Temp Pulse Resp BP Pulse Ox
99.6 F 150 27 158/76 97
03/31/25 07:00 03/31/25 07:00 03/31/25 07:00 03/31/25 05:30 03/31/25 07:00
03/30/25 03/31/25 04/01/25
06:59 06:59 06:59
Actual Weight 102.9 kg 102.6 kg
03/31/25 03:42
PT Cancelled 03/30/25 06:00
INR Cancelled 03/30/25 06:00
APTT 32.1 Sec (23.4-35.0) 03/31/25 03:42
Magnesium 2.1 mg/dl (1.6-2.3) 03/31/25 03:42
Triglycerides 167 mg/dl (10-149) H 03/30/25 01:21
LDL Cholesterol, Calc 50 mg/dl 03/30/25 01:21
VLDL Cholesterol, Calc 33 mg/dl (0-30) H 03/30/25 01:21
HDL Cholesterol 36 mg/dl 03/30/25 01:21
Digoxin < 0.4 ng/ml (0.8-2.0) L 03/30/25 08:33
Physical Exam
Constitutional: No acute distress and Comfortable
EENT: Anicteric
Cardiovascular: Rhythm/rate is irregular, Systolic murmur present and S1S2 is normal
Respiratory: Lungs clear to auscul. and Other (Mechanical ventilation)
GI: Soft, Distention absent, Flat, Non tender and Normal bowel sounds
Neuro/Psych: Other (Moving extremities, poor eye contact)
Other: Skin (warm and dry) and Cath Site (C/D/I no hematoma)
Data Reviewed
-
Date of Service: March 31, 2025
Medical Decision Making: Reviewed Test Results
Medical Tests (PFT, Pathology etc): Report Reviewed by me
Labs: Labs Reviewed by me and Labs Ordered by me
Old Records: Reviewed
[2025-03-31] MEDS: SOLU-CORTEF 25 MG IV ×2 (08:51→20:18)
[2025-03-31] MEDS: LOPRESSOR 25 MG TUBE (08:51)
[2025-03-31] MEDS: MIRALAX 17 GRAMS TUBE (08:51)
[2025-03-31] MEDS: ZYLOPRIM 100 MG TUBE (08:51)
[2025-03-31] MEDS: LIPITOR 40 MG TUBE (08:51)
[2025-03-31] MEDS: LOW STRENGTH ASPIRIN 81 MG TUBE (08:51)
[2025-03-31] MEDS: PEPCID 20 MG TUBE ×2 (08:51→20:19)
[2025-03-31] MEDS: PRECEDEX 100 IV ×2 (08:56→18:40)
[2025-03-31] MEDS: CORDARONE 518 MG IV (09:04)
--- NOTE | 2025-03-31 09:27 | W.PN.NEURO.1 ---
Today's Communication / Plan
-
Attempt to diminish or discontinue sedative medications when possible
Neuro Assessment/Plan
Assessment
Encephalopathy following sepsis with cardiac arrest and need for surgical intervention to remove infected mitral valve
Likely good prognosis for a full neurological recovery based on improvement with holding sedation as well as unremarkable CT of head
Plan
Attempt to diminish or discontinue sedative medications when possible
No concerns at this time for the patient to undergo needed cardiothoracic surgery from a neurological perspective
Will follow as needed
Subjective/Objective
Subjective Data
Date of Service: March 31, 2025
Patient unable provide his own medical history.
Objective Data
Vital Signs
Temp Pulse Resp BP Pulse Ox
37.6 C 135 27 152/72 97
03/31/25 08:00 03/31/25 09:00 03/31/25 09:00 03/31/25 08:51 03/31/25 09:00
Lab Results
03/31/25 03:42
PT Cancelled 03/30/25 06:00
INR Cancelled 03/30/25 06:00
APTT 32.1 Sec (23.4-35.0) 03/31/25 03:42
Sodium 142 mmol/L (135-145) 03/31/25 03:42
Potassium 4.1 mmol/L (3.5-5.1) 03/31/25 03:42
BUN 38 mg/dl (9-20) H 03/31/25 03:42
Glucose 120 mg/dl (70-99) H 03/31/25 03:42
Calcium 8.5 mg/dl (8.4-10.2) 03/31/25 03:42
LDL Cholesterol, Calc 50 mg/dl 03/30/25 01:21
Vitamin B12 941 pg/ml (239-931) H 03/30/25 17:41
Patient Allergies
No Known Allergies Allergy (Unverified 03/29/25 15:53)
Review of Systems
-
Unable to obtain full review of systems at this time due to: Patient Intubation
History Source: Patient
All other systems: Reviewed and negative
Physical Exam
-
General: No Apparent Distress, Intubated and Appears Stated Age
Eyes: Round OU and [place] Conjunctivae
HEENT: Anicteric and Moist Mucous Membranes
Neck: Full Range of Motion
Respiratory: No Dyspnea
Cardiac: No JVD
GI: Non-distended
Skin: Unremarkable
Extremities: No Clubbing, No Cyanosis and Edema +1 (Throughout)
Psych: Unable to Assess
Extended Neurological Exam
Mood & Affect: Unable to Assess
Attention Span & Concentration: Awake, Interactive, Unresponsive to Physical Stimuli and Other (Patient does maintain open eyes with rare blinking. Does follow some one-step requests briefly); Negative Alert
Memory: Unable to Assess
Involuntary Movement: None
Speech: Unable to Assess
Cranial Nerve II: Left Eye: Pupillary Size Unremarkable and Unable to Assess Visual Thompson
Cranial Nerve II: Right Eye: Pupillary Size Unremarkable and Unable to Assess Visual Thompson
Cranial Nerves III, IV, : Extraocular Movement: Negative Absent Doll's Eyes
Cranial Nerve V: Facial Sensation: Unable to Assess
Cranial Nerve VII: Facial Symmetry: Normal Facial Symmetry
Cranial Nerves IX, X: Palate Movement: Unable to Assess
Cranial Nerve XI: Shoulder Shrug: Unable to Assess
Cranial Nerve XII: Tongue Protusion: Unable to Assess
Muscle Strength, Overall: Spontaneously Moves
Muscle Bulk & Tone: Bulk Unremarkable and Tone Unremarkable
Pronator Drift: Unable to Assess
Deep Tendon Reflexes: Trace Throughout
Cold Sensation: Unable to Assess
Vibration Sensation: Unable to Assess
Touch Sensation: Negative Withdrawal to Pain
Coordination: Unable to Assess
Babinski Sign: Absent Bilaterally
Gait & Station: Unable to Assess
Data Reviewed
-
CT Head: Report Reviewed
Labs: Report Reviewed
Reviewed with: Physician, Nurse and Physician Court Recording Monitor
Old Records: Summarized
Past History
Past History
ED Past Medical History: Cancer (Prostate 2012 treated with XRT and hormonal therapy relapsed 2023), Hypercholesterolemia and Other (Right lower lobe pneumonia, gout, cardiac arrest with ROSC March 2025); Negative Renal failure (Acute kidney injury)
ED Past Surgical History: Other (Left carpal tunnel syndrome presumably with repair, percutaneous cholecystotomy tube)
Social History
Tobacco: Smoker
Alcohol: Occasional
Personal:
Living: with family
Employment: Employed
Family History
Family History: Other (Reviewed and noncontributory)
Medications
-
Medications:
Generic Name Dose Route Start Last Admin
Trade Name Freq PRN Reason Stop Dose Admin
Allopurinol 100 mg 03/30/25 08:00 03/31/25 08:51
Allopurinol 100 Mg Tablet TUBE 04/27/25 07:59 100 mg
DAILY STACY Administration
Aspirin 81 mg 03/31/25 08:00 03/31/25 08:51
Aspirin 81 Mg Chewable Tablet TUBE 04/28/25 07:59 81 mg
DAILY STACY Administration
Atorvastatin Calcium 40 mg 03/30/25 08:00 03/31/25 08:51
Atorvastatin (Lipitor) 40 Mg Tablet TUBE 04/27/25 07:59 40 mg
DAILY STACY Administration
Ceftriaxone Sodium 2,000 mg 03/30/25 10:00 03/30/25 10:06
Ceftriaxone 2,000 Mg/20 Ml Vial IV 2,000 mg
Q24H STACY Administration
Dextrose 12.5 grams 03/29/25 23:38
Dextrose 50% (0.5 Grams/Ml) 50 Ml Syringe IV 04/26/25 23:37
[id number] PRN
hypoglycemia
Protocol
Famotidine 20 mg 03/30/25 08:00 03/31/25 08:51
Famotidine 20 Mg Tablet TUBE 04/27/25 07:59 20 mg
BID STACY Administration
Fentanyl Citrate 50 mcg 03/29/25 23:07
Fentanyl (50 Mcg/Ml) 100 Mcg/2 Ml Ampul IV 04/12/25 23:06
[id number] PRN
see protocol
Protocol
Glucagon 1 mg 03/29/25 23:38
Glucagon 1 Mg Vial IM 04/26/25 23:37
PRN PRN
hypoglycemia
Protocol
Hydrocortisone Sodium Succinate 25 mg 03/30/25 10:00 03/31/25 08:51
Hydrocortisone Sodium Succinate 100 Mg/2 Ml Vial IV 04/27/25 09:59 25 mg
Q12 STACY Administration
Fentanyl Citrate 1,000 mcg in 100 mls @ 0 mls/hr 03/29/25 23:15 03/31/25 01:00
Sublimaze IV 100 mls
PER PROTOCOL STACY Administration
Protocol
Per Protocol
Heparin Sodium 25,000 units in 250 mls @ 0 mls/hr 03/29/25 23:45 03/30/25 21:35
Heparin 57008 Units/250 Ml IV 250 mls
PER PROTOCOL STACY Administration
Protocol
Per Protocol
Propofol 1,000,000 mcg in 100 mls @ 0 mls/hr 03/29/25 23:45 03/31/25 00:53
Diprivan IV 100 mls
PER PROTOCOL STACY Administration
Protocol
Per Protocol
Dexmedetomidine HCl 400 mcg in 100 mls @ 0 mls/hr 03/31/25 08:15 03/31/25 08:56
Precedex IV 100 mls
PER PROTOCOL STACY Administration
Protocol
Per Protocol
Amiodarone HCl 900 mg/ 518 mls @ 0 mls/hr 03/31/25 08:30 03/31/25 09:04
Dextrose/Water IV 518 mls
PER PROTOCOL STACY Administration
Protocol
Per Protocol
Insulin Aspart 0 units 03/31/25 00:00 03/31/25 05:52
Insulin Aspart Low Resistance 300 Units/3 Ml Pen.Injctr SC 04/28/25 00:00 Not Given
Q6 STACY
Protocol
Metoprolol Tartrate 25 mg 03/30/25 20:00 03/31/25 08:51
Metoprolol 25 Mg Regular Release Tablet TUBE 04/27/25 19:59 25 mg
BID STACY Administration
Polyethylene Glycol 17 grams 03/30/25 08:00 03/31/25 08:51
Polyethylene Glycol Powder 17 Grams Packet TUBE 04/27/25 07:59 17 grams
DAILY STACY Administration
Sodium Chloride 0 flush 03/29/25 23:00
Sodium Chloride 0.9% (Flush) Syringe IV 04/26/25 22:59
PER PROTOCOL STACY
Sterile Water 20 ml 03/30/25 10:00 03/30/25 10:06
Sterile Water For Injection 20 Ml Vial IV 04/27/25 09:59 20 ml
Q24H STACY Administration
--- NOTE | 2025-03-31 10:43 | PTCARENOTE ---
amio bolus and gtt given as ordered. infusing at ordered rate. will continue to monitor.
[2025-03-31] MEDS: ROCEPHIN 2000 MG IV (11:17)
[2025-03-31] MEDS: STERILE WATER FOR INJECTION 20 ML IV (11:17)
--- NOTE | 2025-03-31 11:17 | PTCARENOTE ---
placed on CPAP wean. tolerating well. Rate 25. calm.
[2025-03-31] MEDS: CORDARONE 103 MG IV ×2 (11:30→15:53)
[2025-03-31 11:35] LABS: Glucose - Point of Care 107 mg/dl (70-99)
[2025-03-31 11:46] LABS: B.E. -0.1 mmol/L; HCO3 23.5 mmol/L (21-28); O2 Saturation % 99.8 % (94-98); PCO2 33 mmHg (35-48); PO2 163 mmHg (83-108); pH 7.46 (7.35-7.45)
[2025-03-31 11:47] LABS: Hematocrit 24.7 % (39.0-52.0); Hemoglobin 8.2 g/dL (13.0-18.0)
[2025-03-31 11:57] LABS: APTT 39.1 Sec (23.4-35.0)
--- NOTE | 2025-03-31 12:44 | CM ---
Reviewed chart. Met with Mrs King and son to review discharge plans. Family had many questions regarding plan of care. Prior to admission he resides with his spouse in a two story home with fourteen steps to enter. He has fourteen steps to get
to bedroom/full bathroom. He has a powder room on the first floor. Prior to admission he was independent wtih ambulation and adls. He does not have any DME in the home. He has a prescription plan, His spouse works from home. Will need to see his
functional level to see if he will have any skilled care needs. Will need pre-cert with his insurance for any inpatient rehab. [facility] close to them. Medical work-up in progress. The discharge plan is to some level of rehab. when
medically stable.
--- NOTE | 2025-03-31 13:47 | CON.HOSP ---
Consultation
-
Date/Time Consultation Requested: March 31, 2025 at 13:26
Date/Time Consultation Performed: March 31, 2025 at 13:45
Requesting Provider: Dr. Pascual Johnson
Performing Provider: Abiola Soto PA-C / Dr. Ra Wilder
Reason for Consultation: Medical Management
Family Physician
-
Family Physician: INTERVIEWE UNKNOWN - PT NOT
Chief Complaint
-
Endocarditis
History of Present Illness
Patient is a 69 y/o male past medical history of hyperlipidemia, gout and prostate cancer s/p XRT and hormonal therapy who was transferred from [facility] on March 30 for possible mitral valve replacement in setting of endocarditis.
Patient was initially admitted to [facility] on March 16 with Atrial Fibrillation with RVR for which he was treated with Cardizem and Esmolol drips. On March 17 patient became hypotensive and bradycardic with asystole requiring CPR,
and 2 doses of Epinephrine before achieving ROSC. Additional work-up at [facility] revealed acute cholecystitis which was treated with percutaneous cholecystostomy tube and Zosyn. Blood cultures were possible for strep viridans and
echocardiogram raised concern for mitral valve endocarditis with P2 flail. Patient was transferred to [facility] on March 30 for possible mitral valve replacement.
Medical History
Past Medical History
Past Medical History: Reports Other
Additional Past Medical History:
Hyperlipidemia
Gout
Prostate Cancer
Additional Past Surgical History:
Percutaneous Cholecystostomy
Left Carpal Tunnel
Social History
Tobacco: Former Smoker
Alcohol: Occasional
Family History
Family History: Unable to Obtain
Allergies / Home Medications
Allergies reflects when Allergies were last updated in [facility].
Home Medications with original date entered in [facility]
Allergy/Medication List:
Allergies
Allergy/AdvReac Type Severity Reaction Status Date / Time
No Known Allergies Allergy Unverified 03/29/25 15:53
Home Medications
abiraterone 250 mg tablet 1,000 mg PO DAILY Cancer 03/30/25
allopurinol 100 mg tablet 100 mg PO DAILY Gout 03/30/25
atorvastatin 10 mg tablet 10 mg PO HS High Cholesterol 03/30/25
montelukast 10 mg tablet 10 mg PO HS Allergies 03/30/25
prednisone 5 mg tablet 5 mg PO BID Cancer 03/30/25
Physical Exam
Vital Signs
Vital Signs
Temp Pulse Resp BP Pulse Ox
99.1 F 109 25 152/72 97
03/31/25 13:00 03/31/25 13:00 03/31/25 13:00 03/31/25 08:51 03/31/25 13:00
Physical Exam
General: Well Developed, Well Nourished and Intubated
HEENT: Normocephalic and Anicteric
Respiratory: Clear and Other
Cardiac: S1/S2, Irregular Rhythm and Murmur (III/ Systolic Murmur heard best at apex)
GI: Soft, Non Tender and Other (RUQ cholecystostomy tube)
Rectal: Deferred by Provider
Genito-urinary: Christian Catheter
Musculoskeletal: No Clubbing, No Cyanosis and Edema
Skin: Warm and Dry
Neuro: Other (Moving head around frequently; Opens eyes on command)
Laboratory Results
-
Laboratory Results
03/31/25 11:26
03/31/25 03:42
PT Cancelled 03/30/25 06:00
INR Cancelled 03/30/25 06:00
APTT 39.1 Sec (23.4-35.0) H 03/31/25 11:26
pH 7.46 (7.35-7.45) H 03/31/25 11:26
pCO2 33 mmHg (35-48) L 03/31/25 11:26
pO2 163 mmHg (83-108) H 03/31/25 11:26
HCO3 23.5 mmol/L (21-28) 03/31/25 11:26
Lactic Acid 0.8 mmol/L (0.7-2.0) 03/30/25 01:21
Total Bilirubin 1.1 mg/dl (0.2-1.3) 03/31/25 03:42
AST 47 U/L (17-59) 03/31/25 03:42
ALT 83 U/L (0-50) H 03/31/25 03:42
Alkaline Phosphatase 88 U/L (38-126) 03/31/25 03:42
Data Reviewed
-
Lab Data: Labs Reviewed
Old Records: Reviewed
Impression / Plan
-
[facility] Cardiac Arrest on 03/17/2025
VDRF
-Patient remains intubated but currently weaning down sedation
-Continue ICU level of care
Septic Shock secondary to Strep Viridans Bacteremia and possible Endocarditis
-Most recent blood cultures are negative
-Continue ceftriaxone
-Appreciate Infectious Disease
Severe Mitral Regurgitation with Flail P2
-CT surgery to determine timing of mitral valve surgery
Persistent Atrial Fibrillation with Rapid Ventricular Response
-Failed cardioversion 03/27/25
-Continue amiodarone
-Continue heparin drip
Acute Cholecystitis s/p Percutaneous Cholecystostomy Tube
-Seen by General Surgery
-Stephanie tube will need to remain in place for 6 weeks
Chronic Steroids Use
-Patient maintained on prednisone 10mg Daily as outpatient and was started on stress dose steroids during hosptialization
-Continue to wean down stress dose steroids
Prostate Cancer
-Patient maintained on leuprolide injection, abiraterone and prednisone
-Patient seen by Oncology during hospitalization
Normocytic Anemia
-Monitor Hgb closely
DVT proph: Heparin Infusion
Code Status: Full Code
--- NOTE | 2025-03-31 15:02 | W.PN.UPDATE ---
Update Note
Progress Note Update
Patient seen and examined discussed with JABARI Contreras, and agree with her note.
Gen-sedated, moves head when I call his name, not following commands
HEENT-NC, AT, anicteric, clear oral mm, intubated
Neck-supple
CV-reg, no M, +S1/S2
Lungs-clear B/L
Abd-soft, NT, ND
Ext-no edema
Musculoskeletal-no cyanosis, clubbing
Skin-warm and dry
Neuro-grossly non-focal
Psych-calm, cooperative
Subacute metabolic encephalopathy -minimize sedation. Currently on Precedex, fentanyl, and propofol. Neurology input noted.
CT head on admission without acute disease, mild cerebral atrophy and mild microvascular changes within the periventricular white matter noted.
Presumed mitral valve endocarditis -blood cultures at [facility] noted to be positive for Streptococcus viridans. Currently on IV ceftriaxone. ID is following.
CT surgery contemplating mitral valve surgery for severe mitral regurgitation, P2 flail leaflet.
Acute hypoxic respiratory failure -intubated March 17 and remains intubated. Manufacturing Tech has been consulted. Chest x-ray today shows slight progression of partial atelectasis in the mid to lower left lung.
In-hospital cardiac arrest -March 17. Reportedly treated with targeted temperature management. Etiology or trigger likely to be due to bacteremia and sepsis.
Minimally displaced acute sternal fracture -likely due to recent cardiac arrest and CPR in [facility].
Acute acalculous cholecystitis -s/p cholecystostomy tube placement March 19.
Metastatic prostate cancer (2012) -hormone resistant. Oncology input noted.
Secondary adrenal insufficiency -apparently has been on 10 mg prednisone daily for the past 2 years according to family. Currently on weaning dose of hydrocortisone IV.
May not be helpful but ACTH stimulation test ordered.
New diagnosis of atrial fibrillation -currently on IV heparin. Amiodarone started by cardiology. Continue metoprolol. Diltiazem discontinued.
Hematuria -appears to have resolved. Christian catheter remains in place.
Normocytic anemia -unknown etiology or acuity. Monitor for now.
Gout -stable.
Hyperlipidemia -atorvastatin.
Obesity due to excess calories
Full code
and son updated at the bedside.
[2025-03-31] MEDS: HEPARIN 25000 UNITS/250 ML IV (15:27)
[2025-03-31] MEDS: CORTROSYN 0.25 MG IV (16:14)
[2025-03-31] MEDS: NSS (PRESERVATIVE FREE) 1 ML IV (16:14)
--- NOTE | 2025-03-31 16:16 | PTCARENOTE ---
cortosyn given. next lab draw due 1644.
[2025-03-31 17:09] LABS: ACTH Stim Cortisol 0 Min 25.3 ug/dl
[2025-03-31 17:53] LABS: ACTH Stim Cortisol 30 Min 36.1 ug/dl
[2025-03-31] MEDS: LOPRESSOR TUBE ×2 (17:56→23:18)
[2025-03-31 17:58] LABS: APTT 49.7 Sec (23.4-35.0)
[2025-03-31] MEDS: ALBUMIN 5% 250 IV (17:59)
--- NOTE | 2025-03-31 18:00 | PTCARENOTE ---
pt received from patternmaker plaster at approx 1645- pt ett to vent- #8.0 tube 26 cm at the lip, pt on simv rate 12, tv 450, peep 5, 40% fio2. Dr. Granger aware pt hr in 130s-140s afib, pt breathing in the 20s to 30s, bp in 80s to 90s- albumin infusing as per
order. ordered to hold even dose of lopressor. md aware pt only opens eyes to names, not following commands, intermittently moving left arm and head, grimacing at times. pt with palpable pulses, generalized +2 edema. coarse lung sounds on
auscultation, thick winter secretions on suctioning. positive bowel sounds, left nare dobhoff at 74cm, auscultated for placement. TF jevity 1.5 started at 20cc/hr with 25cc/hr flush. right upper quadrant yasmany drain flushed per order, brown drainage
noted. pacheco draining blood tinged to lisa urine, unchanged from previous rn. pt with noted DTI to sacrum see wound assessment. wound care consult placed, foam applied, turned and repositioned. scds on and airboots per order. Left IJ triple lumen
with amio, precedex and heparin gtt infusing as per order. brown and blue lumens flushed without difficulty and blood return. white lumen clogged, IV team nurse able to flush and get blood return. dressing and caps changed. left radial daniele with
dampened wave form and no blood returned, removed per md, pressure dressing applied. all safety precautions in place. all labs sent as per order.
[2025-03-31 18:06] LABS: Glucose - Point of Care 185 mg/dl (70-99)
--- NOTE | 2025-03-31 18:09 | PTCARENOTE ---
Addendum entered by Kiarra Golden RN 03/31/25 18:30:
left radial daniele with dampened wave form and no blood return, removed per md order, pressure dressing applied site c/d/i
Original Note:
pt received from international student counselor- pt ett to vent- #8.0 tube 26 cm at the lip, pt on simv rate 12, tv 450, peep 5, 40% fio2. Dr. Granger aware pt hr in 130s-140s afib, pt breathing in the 20s to 30s, bp in 80s- albumin infusing as per order. ordered to
hold even dose of lopressor. md aware pt only opens eyes to names, not following commands, intermittently moving extremities. pt with palpable pulses, generalized +2 edema. coarse lung sounds on auscultation, thick winter secretions on suctioning.
positive bowel sounds, left nare dobhoff at 74cm, auscultated for placement. TF jevity 1.5 started at 20cc/hr with 25cc/hr flush. pacheco draining blood tinged to lisa urine, unchanged from previous rn. pt with noted DTI to sacrum see wound
assessment. foam applied. scds on and airboots per order. Left IJ triple lumen with amio, precedex and heparin gtt infusing as per order. brown and blue lumens flushed without difficulty and blood return. white lumen clogged, IV team nurse able to
flush and get blood return. all safety precautions in place. all labs sent as per order.
[2025-03-31] MEDS: SUBLIMAZE 50 MCG IV ×2 (18:17→22:32)
--- NOTE | 2025-03-31 18:26 | PTCARENOTE ---
Dr. Granger aware pts bp improved, remains tachypneic and restless at times, ok to give fentanyl prn- see dec.
[2025-03-31 18:30] LABS: ACTH Stim Cortisol 60 Min 37.9 ug/dl
[2025-03-31] MEDS: NEO-SYNEPHRINE 250 IV (18:42)
--- NOTE | 2025-03-31 18:45 | PTCARENOTE ---
left ij dressing and caps changed. bp with map<64, alfredito gtt started as per order.
--- NOTE | 2025-03-31 19:00 | PTCARENOTE ---
pt hr in 140s, rr remains in 30s to 40s, grimacing at times, ordered to give fentanyl per Dr. Granger. alfredito gtt started to maintain map>65. HR improved 90s-110 remains in afib. respiratory rate also improved into the 20s.
--- NOTE | 2025-03-31 20:00 | PTCARENOTE ---
Rec'd pt on precedex gtt at 0.4, donna at 2mm, sluggish, no response to commands, no movement of extremities noted, afib, amiodarone gtt at 0.5 mg,alfredito gtt at 40mic- to titrate to keep MAP > 65, hep gtt at 1800 units, weak distal pulses, + edema, skin
warm/dry, #8 oral ett at 26cm, repos on R side, IMV 12, tv 450, 5 peep, 10 PS, sat 100, lungs decr in bases, few scat rhonchi, suct for sm amt winter blood tinged sputum- specimen sent; hypo bowel sounds, no bm, Left nares dobhoff- jevity 1.5 at
20ml/hr, 25ml/hr h20 flush, no vomiting, r yasmany drain to str drainage bag draining brown liquid; pacheco draining lisa blood tinged urine
--- NOTE | 2025-03-31 21:50 | W.PN.ID1 ---
Date of Service
Date of Service: March 31, 2025
Today's Communication
continue Ceftriaxone
Assessment / Plan
1. Patient transferred to this facility for possible repair/replacement of abnormal MV
2. Patient with bacteremia on prior admission with Streptococcus viridans currently on Ceftriaxone
3. Patient with cholecystitis requiring decompression in setting of acute cholecystitis treated with piperacillin/tazobactam
4. Per patient with recent dental visit in setting of very poor dentition
5. Several weeks ago patient diagnosed in urgent care facility with right lower lobe pneumonia/bronchitis treated with azithromycin and Ceftin
6. Current repeat blood cultures pending
7. WBC 15.4 /T 98.5
8. Patient currently on Ceftriaxone
9. CXR today with slight progression of atelectasis in LLL
Chief Complaint
-: Leukocytosis (ventilator dependent,intubated)
Subjective / Review of Systems
Review of Systems: No Fever, No Chills (unable to fully assess as patient sedated), No Sputum Production, No Vomiting and No Diarrhea
Vital Signs / Physical Exam
Vital Signs
Vital Signs
Temp Pulse Resp BP Pulse Ox
98.5 F 100 28 83/47 100
03/31/25 19:19 03/31/25 19:00 03/31/25 19:00 03/31/25 19:00 03/31/25 20:00
Physical Exam
Constitutional: No Acute Distress, Well Developed, Comfortable and Acutely Ill (unresponsive)
Head: Normocephalic
Eyes: Pupils Equal, Pupils Round, No Conjunctival Hemorrhage and Sclera Anicteric
Oropharyngeal: Benign
Cardiovascular: Regular Rate and Peripheral Edema (tachycardia at times)
Pulmonary: Other (intubated with wean planned)
Gastrointestinal: Soft, Distended and Decreased Bowel Sounds
Genito-Urinary: Christian
Extremities: Edema
Musculoskeletal: Other (drop foot on left)
Skin: Warm and Dry
Wound: None
Neurological: Other (unresponsive ,sedated but wean anticipated ,no eye contact, unable to follow commands)
Psychological: Other (unresponsive)
Lines: CVP
Objective Data
Lab Data
Lab Results
03/31/25 11:26
03/31/25 03:42
PT Cancelled 03/30/25 06:00
INR Cancelled 03/30/25 06:00
APTT 49.7 Sec (23.4-35.0) H 03/31/25 17:32
Estimated Creat Clear Cancelled 03/30/25 06:00
Lactic Acid 0.8 mmol/L (0.7-2.0) 03/30/25 01:21
Total Bilirubin 1.1 mg/dl (0.2-1.3) 03/31/25 03:42
AST 47 U/L (17-59) 03/31/25 03:42
ALT 83 U/L (0-50) H 03/31/25 03:42
Alkaline Phosphatase 88 U/L (38-126) 03/31/25 03:42
Most recent labs reviewed.
Microbiology: Report Reviewed
Micro Results:
03/31/25 20:32 Respiratory Culture - Pending
Endotracheal Gram Stain - Pending
03/30/25 01:21 MRSA Screen - Final
Nose No Methicillin Resistant Staphylococcus aureus isolated.
03/30/25 01:54 Blood Culture - Preliminary
Blood/Venous No Growth in 24 hours- Final report to follow
03/30/25 01:22 Blood Culture - Preliminary
Blood/Venous No Growth in 24 hours- Final report to follow
Other: Report Reviewed and Discussed w/ (family, /son at bedside)
Care Review
Plan reviewed with: Nurse and Other (family)
Total Time Spent with Patient (in minutes): 35
--- NOTE | 2025-03-31 22:34 | PTCARENOTE ---
fent 50mic iv given for cpot 3
[2025-03-31 23:30] LABS: Glucose - Point of Care 148 mg/dl (70-99)
[2025-04-01] VITALS (71 sets, daily range): BP systolic 87–126; BP diastolic 41–91
--- NOTE | 2025-04-01 00:14 | PTCARENOTE ---
sysn reviewed, changes noted, CHG bath done, linens changed, tube fdg incr to 40ml/hr
[2025-04-01 00:39] LABS: APTT 90.9 Sec (23.4-35.0)
[2025-04-01] MEDS: SUBLIMAZE 50 MCG IV ×5 (01:22→19:24)
[2025-04-01] MEDS: PRECEDEX 100 IV ×3 (02:57→21:57)
[2025-04-01 03:19] LABS: Hemoglobin 7.1 g/dL (13.0-18.0); Mean Corp Hgb Conc. 32.3 g/dL (33.0-37.0); Mean Corpuscular Volume 89.8 fL (80.0-94.0); Mean Platelet Volume 11.1 fL (7.4-10.4); Platelet Count 201 10^3/uL (130-400); Red Blood Cell Count 2.45 10^6/uL (4.70-6.10); Red Cell Dist. Width 16.5 % (11.5-14.5); White Blood Cell Count 12.2 10^3/uL (4.8-10.8)
[2025-04-01 03:49] LABS: ALT (SGPT) 57 U/L (0-50); AST (SGOT) 28 U/L (17-59); Albumin 2.5 g/dl (3.5-5.0); Alkaline Phosphatase 88 U/L (38-126); Blood Urea Nitrogen 31 mg/dl (9-20); Calcium 7.9 mg/dl (8.4-10.2); Carbon Dioxide 27 mmol/L (22-30); Chloride 112 mmol/L (98-107); Estimated Creatinine Clearance 96 ml/min; Glucose 144 mg/dl (70-99); Potassium 3.5 mmol/L (3.5-5.1); Sodium 142 mmol/L (135-145); Total Bilirubin 0.8 mg/dl (0.2-1.3); Total Protein 5.2 g/dl (6.3-8.2); eGFR > 60.00
--- NOTE | 2025-04-01 04:00 | PTCARENOTE ---
sys reviewed, changes noted, ett repos on left side at 26cm
[2025-04-01] MEDS: KCL 270 MEQ IV (05:18)
--- NOTE | 2025-04-01 05:18 | PTCARENOTE ---
40 kcl/250 hung over 4 hr per order
[2025-04-01] MEDS: HEPARIN 25000 UNITS/250 ML IV (05:24)
[2025-04-01] MEDS: NOVOLOG FLEXPEN-LOW RESISTANCE 1 UNITS SC (06:06)
[2025-04-01 06:14] LABS: Glucose - Point of Care 171 mg/dl (70-99)
[2025-04-01] MEDS: LOPRESSOR TUBE (06:16)
[2025-04-01 06:44] LABS: INR 1.13
[2025-04-01 06:46] LABS: APTT 75.7 Sec (23.4-35.0)
--- NOTE | 2025-04-01 07:43 | W.PN.HOSP.TC ---
Today's Communication/Plan
-
Stop IV heparin
Transfuse
Urology consult
Assessment / Plan
Assessment / Plan
Gen-sedated, intubated
HEENT-NC, AT, anicteric, white coating on tongue
Neck-supple
CV-reg, no M, +S1/S2
Lungs-clear B/L
Abd-soft, NT, ND
Ext-anasarca
Musculoskeletal-no cyanosis, clubbing
Skin-warm and dry
Neuro-grossly non-focal
Psych-calm, cooperative
Cardiogenic shock -most likely due to severe mitral regurgitation. Flail mitral P2 leaflet. Now on phenylephrine in ICU. Blood pressure adequate on current vasopressor dose.
Subacute metabolic encephalopathy -minimize sedation. Currently on Precedex, fentanyl, and propofol. Neurology input noted.
CT head on admission without acute disease, mild cerebral atrophy and mild microvascular changes within the periventricular white matter noted.
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 Currently on IV ceftriaxone. ID is following. Blood cultures in our hospital have been negative so far.
CT surgery contemplating mitral valve surgery for severe mitral regurgitation, P2 flail leaflet.
Acute hypoxic respiratory failure -intubated March 17 and remains intubated. Putty Remover has been consulted. Chest x-ray today shows slight progression of partial atelectasis in the mid to lower left lung.
In-hospital cardiac arrest -March 17. Reportedly treated with targeted temperature management. Etiology or trigger likely to be due to bacteremia and sepsis.
Minimally displaced acute sternal fracture -likely due to recent cardiac arrest and CPR in [facility].
Acute on suspected chronic anemia -on review of [facility] records, hemoglobin noted to be 9.8 on March 18, hemoglobin 8.2 yesterday, 7.1 today. Hematuria noted in Christian catheter. Stop IV heparin. Stools have been brown. Anticipate he
will need transfusion, verbal consent obtained by on the phone, verified by nursing. Patient unable to provide consent due to encephalopathy.
Possible oral thrush -will order nystatin.
Acute acalculous cholecystitis -s/p cholecystostomy tube placement March 19.
Metastatic prostate cancer (2012) -hormone resistant. Oncology input noted.
Secondary adrenal insufficiency -apparently has been on 10 mg prednisone daily for the past 2 years according to family. Currently on weaning dose of hydrocortisone IV.
May not be helpful but ACTH stimulation test ordered.
New diagnosis of atrial fibrillation -amiodarone per cardiology. Holding metoprolol for hypotension. Stop IV heparin for hematuria, anemia.
Hematuria -urine noted to be clear and yellow yesterday but bloody again today. Stop IV heparin, consult urology. Christian catheter is in place.
Gout -stable.
Hyperlipidemia -atorvastatin.
Obesity due to excess calories
Full code
updated on the phone.
Anticipated Discharge: > 48 hours
Subjective/Interval History
-
Date of Service: April 01, 2025
Patient seen and examined. Remains sedated, intubated. Opens eyes when name is called but does not follow commands.
Objective Data
-
Labs:
Laboratory Results
04/01/25 04/01/25 04/01/25
00:20 03:04 06:05
WBC 12.2 H
Hgb 7.1 L
Hct 22.0 L
Plt Count 201
PT 15.0 H
INR 1.13
APTT 90.9 H 75.7 H
Sodium 142
Potassium 3.5
Chloride 112 H
Carbon Dioxide 27
BUN 31 H
Creatinine 0.8
Glucose 144 H
Calcium 7.9 L
Total Bilirubin 0.8
AST 28
ALT 57 H
Alkaline Phosphatase 88
Vital Signs:
Vital Signs
Temp Pulse Resp BP Pulse Ox
98.9 F 76 17 107/71 99
04/01/25 07:39 06/25/25 07:00 04/01/25 07:00 04/01/25 07:00 04/01/25 07:00
I&O
03/31/25 04/01/25 04/02/25
06:59 06:59 06:59
Intake Total 896.7 / 925.7 2157.5 / 2157.5
Output Total 2059 / 2124 178 / 178
Balance -1163.3 / -1199.3 377.5 / 377.5
Review of Systems
-
Unable to obtain full review of systems at this time due to: Acuity and Patient Intubation
--- NOTE | 2025-04-01 08:26 | W.PN.INTV ---
Today's Communication / Plan
Recommendations
Mechanical ventilation with SAT/SBT
Given the bilateral pleural effusions with severe MR with possible flail component, would extubate to BiPAP if he is stable for extubation
Defer mitral valve intervention to cardiothoracic surgery
Continue antibiotics per ID
Follow-up surveillance blood cultures checked on 03/30/2025
Stress ulcer prophylaxis
Heparin drip now off; 1 unit PRBC being transfused this morning
Urology consulted than possible OR for cystoscopy this Sunday
Given his continued stuporous state, check MRI brain tomorrow
Continue amiodarone drip (which can be held during MRI brain)
Guarded prognosis; after MRI brain, will need to have goals of care discussion as he is heading towards tracheostomy given that he has been intubated since 03/17
Continue ICU level care
Assessment
-
Assessment: 69-year-old male former tobacco smoker with a past medical history of of gout, prostate cancer (diagnosed 2012) s/p XRT with relapse in 2015 s/p cryotherapy, and another relapse in 2023 currently being treated with abiraterone, and
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 Patient has a known history of moderate to severe mitral regurgitation, with last echo done here at from 04/16/2024 showing posterior MV
leaflet prolapse with moderate mitral regurgitation and LVEF 55 to 60%. Patient was following with cardiology with Dr. Rodriguez at the time. Patient was asymptomatic at the time and repeat echo was ordered for April 07, 2025. The patient developed
generalized malaise with intermittent dry cough and diarrhea for 2 weeks and he went to urgent care INSULATION SUPERVISOR. RLL pneumonia/bronchitis was suspected at urgent care and he was prescribed Zithromax + Ceftin. Patient saw his PCP on 03/16/2025 and found to
be in new onset A-fib with RVR and was sent to [facility]. While at [facility], he was started on Cardizem gtt + esmolol gtt. patient cardiac arrested on 03/17 which was preceded by bradycardia and then asystole, and received ROSC after 2 amps
of epinephrine and 1 amp of bicarb. Per documentation, patient underwent TTM. Evaluation for an acute PE was negative. Patient was found to be bacteremic reportedly with Streptococcus viridans. Patient also diagnosed with acute cholecystitis and
underwent percutaneous cholecystostomy tube placement by IR on 03/19. Patient had been started on antibiotics with Zosyn. Patient continued to be intubated since the day of his cardiac arrest on 03/17 with great difficulty weaning his sedation and
performing weaning trials due to tachycardia with hypertension and tachypnea. TONE performed on 03/27/2025 showed mildly thickened MV leaflets with P2 flail. Superimposed MV vegetation unable to be ruled out. Patient then transferred here to for
further evaluation for cardiothoracic intervention. Digital Media Strategist service is now consulted for additional management/recommendations.
Chronic conditions INSULATION SUPERVISOR: PVCs, aortic insufficiency, mitral valve prolapse with mitral regurgitation, hyperlipidemia, metastatic prostate cancer s/p XRT with relapse (2015) treated with cryotherapy, currently on hormone therapy due to second relapse
in 2023, hypothyroidism, gout
Impression:
#Ventilator dependent respiratory failure/acute hypoxic respiratory failure � intubated 03/17/2025 during in-hospital cardiac arrest at [facility]
#In-hospital cardiac arrest at [facility] on 03/17/2025 (reportedly, patient became bradycardic and then developed asystole with ROSC obtained after 2 amps epi and 1 amp bicarb) s/p TTM
#Acute encephalopathy and upward gaze preference (left eye > right eye) - no acute intracranial pathology on CTh from 03/30/2025
#Acute cholecystitis s/p percutaneous cholecystostomy tube placement (performed at [facility] on 03/19/2025) - bile fluid Cx reportedly negative as mentioned above
#Severe, eccentric mitral valve regurgitation with posterior leaflet MVP with reported P2 flail with possible vegetation
#New onset atrial fibrillation
#Hematuria
#Anemia
#Transaminitis (elevated ALT)
#Bacteremia due to Streptococcus viridans (per patient's family)
#Minimally displaced sternal fracture due to recent CPR
#Metastatic prostate cancer (diagnosed 2012) s/p XRT with relapse (2015) s/p cryotherapy and another relapse in 2023 currently being treated with abiraterone
#Gout
Plan:
- Unclear sequence of events, however seems as if he had an initial respiratory infection and then developed cardiac arrest, likely due to subacute MV endocarditis with valve destruction leading to severe MR, and possible acute cholecystitis as a
result of critical illness (as no stone reported and reportedly the bile was cultured and showed no growth)
- s/p LHC on 03/30 showing right dominant circulation with no CAD with top normal�mildly elevated filling pressures (LVEDP: 13 mmHg)
- TTE performed on 03/30/2025 showed severe eccentric MR with posterior leaflet mitral valve prolapse and unable to exclude a flail segment, with moderate AI, normal RV size/function and normal LV size/function (LVEF: 60-65%) with no regional WMA
- [facility] medical records are in his physical chart; may benefit from repeating TONE so have an updated view of his MV and re-assess for flail at P2, however a TONE with cardioversion was attempted on 03/27/2025 but was unsuccessful (unclear why) - will
defer TONE and any cardiothoracic intervention to CT surgery here
- Pt has been intubated since 03/17 - recommend goals of care discussion as he is heading towards tracheostomy if family wants to continue with full medical care
- Continue with mechanical ventilation with daily SAT/SBT if clinically appropriate
- As of today (04/01/2025), I had a discussion with CT surgeon, Dr. Johnson, and there is no emergent need to intervene on his MV as he has chronic eccentric MR, and it is currently not torrential
- Ideally patient will be extubated, allowed to recover, and follow-up with CT surgery as an outpatient for an expedited surgery scheduling; if patient does end up getting extubated and has flash pulmonary edema, then he would need to have a more
urgent intervention of his mitral valve during current hospitalization
- The patient had been on SIMV overnight - -> I will change him to ASV 110%, and continue to wean off precedex as tolerated
- Since he remains stuporous with only occasional awakening and following simple commands, I will check MRI brain to assess brain parenchyma and assess for hypoxic�ischemic encephalopathy
- If a window does arise where we can pressure support him, we do PS 5: PEEP of 0 and extubate to BiPAP given that he does have small bilateral pleural effusions (via CT Chest on 03/30/2025) and he is at increased risk of flash pulmonary edema given
that he has severe eccentric MR
- While he remains intubated, maintain plateau pressure <30 and titrate FiO2 + PEEP to keep SpO2 >90-94%
- Continue aspiration precautions; keep HOB >30-45�
- prn nebulized bronchodilators - not currently bronchospastic
- Oropharyngeal + deep ETT suctioning with subglottic as needed
- Daily CXR + blood gas
- Daily vent adjustments as needed based on blood gas and SaO2
- Low level of sedation with goal RASS as 0 to -2
- Neurology consulted on 03/30 given his prolonged hospital course with reports of inappropriate awakening, however as of 03/31 he is opening his eyes to commands but remains encephalopathic and stuporous
- He remains stuporous, occasionally following simple commands as of 04/01 --> check MRI brain tomorrow
- CT head on 03/30/2025 showed no acute intracranial abnormality
- If patient's stupor does not improve, then would consider EEG +/- MRI brain
- Neurology consulted and recs appreciated
- Try limiting BLUEPRINTING AND PHOTOCOPY SUPERVISOR altering medications and keep sedation at the lowest dose needed to maintain RASS 0 to -2 - -> now off propofol and fentanyl drips and on precedex gtt
- Continue with antibiotics, currently on ceftriaxone 2,000 mg IV q24hr
- ID consulted - recs appreciated
- Follow-up blood cultures x 2 drawn 03/30 + respiratory culture from ETT
- There is a mild retrocardiac opacity concerning for pneumonia, and CT chest from 03/30/2025 shows bibasilar consolidations likely due to compressive atelectasis from bilateral pleural effusions and less likely pneumonia however this is unable to
be ruled out - continue Abx and if pt spikes fever then would consider broadening Abx further to cover Pseudomonas; MRSA swab negative
- Trend WBC and monitor for fevers
- Trend LFTs
- Trend perc yasmany drain output
- Maintain MAP>65 - currently off all pressors
- Currently on hydrocortisone - will wean off --> today change to 25mg IV daily and continue this for 3 days and then stop
- Maintain HR <110 --> continue with amiodarone drip; defer changing to PO amio to cardiology
- Heparin gtt currently infusing; eventual TRX to NOAC
- Cardiology on board - recs appreciated
- Replete electrolytes with K>4, Mg>2
-Patient began having hematuria overnight, and he was also having hematuria while at [facility]
- Christian catheter in place
- Trend H/H and transfuse if needed to keep Hb>7-8g/dL; keep plt>50k
- Hematuria may be due to Christian catheter in the setting of heparin drip although he also has active prostate cancer so this may also be contributing
- Oncology already on board and recs appreciated
- Continue to monitor hematuria --> given his complicated urological history, patient likely going to OR this Sunday for cystoscopy with biopsy/clot evacuation and fulguration; continue keeping patient off heparin drip. Patient is at high risk for
this procedure although given his ongoing hematuria, and given that he is on minimal vasopressors and FiO2 is low at 40%, I believe that the benefits outweigh the risks.
- Maintain euglycemia with goal BG 140-180
- Stress ulcer ppx - pepcid
- Early nutrition - tube feeds
- DVT ppx: SCDs; heparin drip now off in the setting of anemia with hematuria
Code status: Full code
Critical care statement: A total of 42 minutes of critical care time was provided for this patient today. This includes management of unstable vital signs, evaluation of the patient at bedside, reviewing the patient's pertinent medical records
including radiographs, microbiology, laboratory evaluations, and discussion with primary team, consultants, pharmacy, nutrition, physical therapy, case management, charge nurse, critical care nursing, and respiratory therapy.
Data:
Left heart catheterization 03/30/2025:
CONCLUSIONS
1. Right dominant circulation with no coronary artery disease
2. Top normal to mildly elevated filling pressures (LVEDP = 13 mmHg at 102.5 kg).
3. Relative central hypotension (aortic systolic pressure 80 mmHg, mean pressure 66 mmHg), better on peripheral A-line (systolic blood pressure of 100), likely due to amplification effect.
Transthoracic echocardiogram 03/30/2025:
Normal left ventricular size and systolic function.
Estimated LV ejection fraction is 60-65%.
Posterior leaflet mitral valve prolapse and sever mitral regugitation
Focal thickening of the aotic valve and mild to moderate aortic regurgitation
Compared to the previous echo report 04/16/24 the degree of mitral regurgitation
has increased ( previously moderate). the focal thickeniing fo the aortic
leaflet is more prominent.
CT Head 03/30/2025: No acute intracranial abnormality. Mild cerebral atrophy and mild microvascular changes within the periventricular white matter.
Subjective Dataa
Subjective Data
Date of Service:
Date of Service: April 01, 2025
Chief Complaint: Digital Media Strategist Follow Up and Vent Management Follow Up
Subjective:
Patient was seen and evaluated this morning. Currently on precedex at 0.5mcg/kg/hr. Remains minimally responsive, occasionally following simple commands. Currently on Vikas at 40mcg/min. HR 80, SpO2 100%, BP: 96/62. Hb 7.1 this AM - heparin gtt
now off, and getting 1 U PRBC. Still having hematuria, no clots seen.
Review of Systems
General: Other (Unobtainable due to patient's acute clinical status)
Objective Data
Data Reviewed
Vital Signs / I&O / Oxygen:
Vital Signs
Temp Pulse Resp BP Pulse Ox
98.9 F 76 17 107/71 100
04/01/25 07:39 04/01/25 07:00 04/01/25 07:00 04/01/25 07:00 04/01/25 08:02
Intake and Output
03/31/25 04/01/25 04/02/25
06:59 06:59 06:59
Intake Total 896.7 / 925.7 2157.5 / 2157.5
Output Total 2059 / 2124 1780 / 1780
Balance -1163.3 / -1199.3 377.5 / 377.5
SaO2 [CPAP] 98
SaO2 [P-SIMV] 99
SaO2 [A/C] 97
SaO2 100
Physical Exam
General: Respiratory Distress (negative), Comfortable, Chills (negative) and Sweats (negative)
HEENT: Normocephalic, Anicteric and Other (ETT in place)
Cardiovascular: Irregular Rhythm, Peripheral Edema (+1 lower extremity pitting edema bilaterally) and Other (Tachycardic)
Respiratory: Wheeze (negative), Crackles (negative), Rhonchi (negative), Non-Labored Respirations and ET Tube (Mechanical breath sounds heard bilaterally)
GI: Soft, Non Distended, Non Tender and Normal Bowel Sounds
Neurology: Tremors (negative) and Other (Stuporous, occasionally follows commands)
Skin: Warm, Dry, Cyanosis (negative) and Jaundice (negative)
Labs/Micro/Reports
Lab Data
04/01/25 03:04
04/01/25 03:04
Laboratory Results
03/31/25 03/31/25 04/01/25
11:26 17:32 00:20
PT
INR
APTT 39.1 H 49.7 H 90.9 H
pH 7.46 H
pCO2 33 L
pO2 163 H
HCO3 23.5
O2 Delivery Level
04/01/25
06:05
PT 15.0 H
INR 1.13
APTT 75.7 H
pH
pCO2
pO2
HCO3
O2 Delivery Level
Microbiology
03/30/25 01:54 Blood/Venous Blood Culture - Preliminary
No Growth in 48 hours- Final report to follow
03/30/25 01:22 Blood/Venous Blood Culture - Preliminary
No Growth in 48 hours- Final report to follow
03/30/25 01:21 Nose MRSA Screen - Final
No Methicillin Resistant Staphylococcus aureus isolated.
--- NOTE | 2025-04-01 09:00 | W.PN.CD ---
Today's Communication / Plan
-
CT surg eval
hold heparin, and trend Hgb
cont IV amiodarone
Impression / Plan
-
I/P: 69M with moderate MR (flail P2) now severe, HLD, metastatic prostate cancer (on Abiraterone & prednisone), gout, and hypothyroidism presents as a transfer from [facility]) with severe mitral regurgitation with possible
vegetation.
Outpatient Aerobics Teacher: Dr. Rodriguez
Patient is critically ill.
S/p PEA cardiac arrest 03/17/2025
-10 minutes od CPR prior to ROSC, epi x 2, no shocks -> s/p TTM
-On stress dose steroids, he is on chronic prednisone 5mg BID as an outpatient
-remains on vent (vent dependent respiratory failure): working to wean, with unclear mental status
Atrial fibrillation with RVR
-Failed 03/27/25 DCCV, near immediate return of RVR
-[id number]: score at least 1 (age 65-74)
-heparin drip off due to downtrending Hgb and hematuria
-using amiodarone drip for rate control in setting of shock
Shock, likely mixed cardiogenic/septic with bacteremia (Streptococcus viridans) and severe MR
-ID consulted: IV abx
-on phenylephrine
Mitral regurgitation, severe
-EF 60-65%, also with mild/mod AR
-Flail P2 (which was present last year), but now also concern for bacterial endocarditis
-undergoing CT surgery evaluation
Hematuria
-heparin off, urology consulted
cholecystitis, perc yasmany tube placed at [facility] 03/19/2025, seen by GS this admit
Prostate cancer, metastatic, on Abiraterone
PVCs, burden 4.6% on Holter (2023)
Former smoker, continued cessation recommended
CCT 35 min
DATA:
Cardiac catheterization, 03/30/2025:
CONCLUSIONS
1. Right dominant circulation with no coronary artery disease
2. Top normal to mildly elevated filling pressures (LVEDP = 13 mmHg at 102.5 kg).
3. Relative central hypotension (aortic systolic pressure 80 mmHg, mean pressure 66 mmHg), better on peripheral A-line (systolic blood pressure of 100), likely due to amplification effect.
TTE, 03/30/2025:
Normal left ventricular size and systolic function.
Estimated LV ejection fraction is 60-65%.
Posterior leaflet mitral valve prolapse and severe mitral regurgitation
Focal thickening of the aortic valve and mild to moderate aortic regurgitation
Compared to the previous echo report 04/16/24 the degree of mitral regurgitation
has increased ( previously moderate). the focal thickening fo the aortic
leaflet is more prominent.
TONE, 03/27/2025:
Mild AR.
MV leaflets thickened. Flail P2. Vegetation cannot be excluded.
CT PE 03/16/2025:
Moderate pericardial effusion.
Bilateral pleural effusions, R > L.
Physical Exam
Vital Signs/Labs
Vital Signs
Temp Pulse Resp BP Pulse Ox
98.9 F 76 17 107/71 100
04/01/25 07:39 04/01/25 07:00 04/01/25 07:00 04/01/25 07:00 04/01/25 08:02
03/31/25 04/01/25 04/02/25
06:59 06:59 06:59
Actual Weight 102.6 kg 103.2 kg
04/01/25 03:04
04/01/25 03:04
PT 15.0 Sec (11.4-14.6) H 04/01/25 06:05
INR 1.13 04/01/25 06:05
APTT 75.7 Sec (23.4-35.0) H 04/01/25 06:05
Magnesium 2.1 mg/dl (1.6-2.3) 03/31/25 03:42
Triglycerides 167 mg/dl (10-149) H 03/30/25 01:21
LDL Cholesterol, Calc 50 mg/dl 03/30/25 01:21
VLDL Cholesterol, Calc 33 mg/dl (0-30) H 03/30/25 01:21
HDL Cholesterol 36 mg/dl 03/30/25 01:21
Digoxin < 0.4 ng/ml (0.8-2.0) L 03/30/25 08:33
Physical Exam
Constitutional: Other (intubated)
Cardiovascular: Rhythm/rate is irregular, Pedal edema present, JVD present and Systolic murmur present
Respiratory: Other (mechanical ventilation)
Data Reviewed
-
Date of Service: April 01, 2025
EKG: Other (Tele: Afib 70s-80s)
Labs: Labs Reviewed by me
Critical Care Time (in minutes): 35
--- NOTE | 2025-04-01 09:15 | PTCARENOTE ---
Rec'd pt at 0800 resting in bed. Rec'd pt intially with eyes closed sedated on Precedex at 0.5 mcg. Will open eyes to verbal stimuli as well as tactile stimuli. Will look at stimuli mostly if it is on his L side. Pupils sluggish at 2 mm. Does need
repeated requests to perform certain activities but did squeeze with his L hand. Not with his R and did not move his feet. Bilat feet with foot drop currentlyh with air filled boots in place. Will nod head- nodded head no to having pain and yes to
wanting to listen to music. Will tend to reclose his eyes when undisturbed. RASS is a -1 and CPOT is a 0. Skin is pale wm and dry. Sacrum with foam in place. Respirs are intact on the vent. #8 Ett 26 cm angelina retaped in the center of the mouth.
Suctioned for thick whitish secretions. + cough and gag. Vent SIMV settings 40% fio2, rate 12, tv 450,peep 5, ps 10. Adds rate to 16-22 range and TV 430-480. BS are sl coarse and decreased. Sats are 100%. Monitor AFIb with pvc's. Pt on IV AMiodarone
at 0.5 mg/min via [facility] T[facility]. Rec'd pt on IV Heparin at 1800 units/hr but hgb this am 7.1 and pt with hematuria- as such Dr Wilder in and per MD order Heparin gtt dc'd at 0845. + pulses. +2 gen anasarca. VS as documented. Pt currently on IV Vikas at 40
mcg. Will titrate to keep MAP >65. Abd is soft with + BS. Tolerating Jevity 1.5 tube feeds via L nare feeding tube- rate increased per order to 55 ml/hr+ 25 ml/hr flush. No residual. Feeding tube at the 74 cm angelina. Incont of small - mod amt of soft
brown stool. R abd Cholecystotomy drain in place for pritchett/brown drainage. Irrigatged with 10 ml sterile saline as ordered. Pacheco intact for bloody tinged urine. Dr. Gagnon in and hand irrigated the pacheco- continues to drain bloody tinged urine.
IV's infusing via [facility] T[facility] as documented. Site wnl. Turned and repositioned. Skin and mouth care given.
[2025-04-01] MEDS: LOW STRENGTH ASPIRIN 81 MG TUBE (09:38)
[2025-04-01] MEDS: PEPCID 20 MG TUBE ×2 (09:38→19:25)
[2025-04-01] MEDS: MIRALAX 17 GRAMS TUBE (09:38)
[2025-04-01] MEDS: ZYLOPRIM 100 MG TUBE (09:38)
[2025-04-01] MEDS: ROCEPHIN 2000 MG IV (09:38)
[2025-04-01] MEDS: LIPITOR 40 MG TUBE (09:38)
[2025-04-01] MEDS: STERILE WATER FOR INJECTION 20 ML IV (09:38)
[2025-04-01] MEDS: SOLU-CORTEF 25 MG IV (09:39)
[2025-04-01] MEDS: FLUSH (NSS) 1 FLUSH IV ×2 (09:39→15:58)
--- NOTE | 2025-04-01 10:15 | PTCARENOTE ---
#1 unit PRBC hung per MD order via [facility] T[facility]
--- NOTE | 2025-04-01 11:10 | PTCARENOTE ---
PRBC's infusing as ordered. Pt is opening eyes and follows few commands. Will try to decrease Precedex to better assess neuro status. - currently at 0.4 mcg.
--- NOTE | 2025-04-01 12:29 | CON.MD ---
Consultation - Medical
-
see dictated note
pt with complicated urologic hx- all care outside of system
prostate ca 13 years ago-treated with xrt- then failure with 2 ROUNDS of CRYO
now on androgen ablation- says psa was rising at last visit- was to be rechecked this month to see if other therapy needed
denies prior hx of hematuria or UTI/ chronic incontinence
transferred from outside hospital on the vent after cardiac event with need of mitral valve repair/replacement
has had hematuria/pacheco for almost this whole time
remains on vent/tube feeds and pressors- ? mentation
full body CT did not show any obvious reason for hematuria
hgb down today- being transfused
on exam- gu normal- [address]- urine [place]- irrigates easily and clears quickly
plan
heparin being held due to blood loss anemia and hematuria- although his degree of hematuria does not seem to correlate with the degree of his hgb drop
suspect bleeding is from xrt/cryo prostatitis/cystitis- once this starts can be very problematic and difficult to remedy and generally would make anticoagulation an non-option
could take to OR on Sunday for cysto/bx/clot evac and fulguration- obviously high risk- would need to stay off heparin in this interval
reached out to care providers to discuss
in speaking with - if he is not improving and it appears unliley that he would stabilize to go to OR for cardiac procedure- she would consider comfort care
Consultation
-
Date/Time Consultation Requested: 04/01/25 at 8am
Date/Time Consultation Performed: 04/01/25 at 11:30
Requesting Provider: dr valenzuela
Performing Provider: dr valera
Reason for Consultation: hematuria
--- NOTE | 2025-04-01 12:30 | PTCARENOTE ---
Overall assessment is unchanged. Continues to open eyes on his own or with stimuli -will at times focus on stimuli more if it is on the L side vs the R side however did give a weak grasp with his R hand. L grasp is sl stronger and still will not
move feet to commands. Resp- Per Dr. Granger vent mode changed to ASV at 1200. ASV 110% MV, FIo2 40%, peep5. RR currently 18-24 and Tv 450-520. Sats are 99-100%. Suctioned for thick whitish secretions. + cough and gag. Does have oral secretions as
well. ETT repostioned 26 cm angelina R side of the mouth. VS as documented. If BP remains ok will try to start weaning the IV Samantha. Tolerating tube feeds. Urine- Dr. Whipple in and hand irrigated Christian- urine is bloody tinged. Repositioned. Mouth care
given. Blood almost finished infusing.
[2025-04-01 12:44] LABS: Glucose - Point of Care 210 mg/dl (70-99)
[2025-04-01] MEDS: NOVOLOG FLEXPEN-LOW RESISTANCE 2 UNITS SC (12:59)
--- NOTE | 2025-04-01 13:00 | PTCARENOTE ---
#1 unit PRBC's infused. Weaning IV Precedex at tolerated Currently at 0.2 mcg.
[2025-04-01] MEDS: MYCOSTATIN ORAL SUSPENSION 5 ML TUBE ×3 (13:04→23:23)
[2025-04-01 15:18] LABS: PSA, Total - Diagnostic 1.09 ng/ml (0.0-4.0)
--- NOTE | 2025-04-01 15:30 | PTCARENOTE ---
Turned and repositioned. Periods of restfullness mixed with periods of being more wakeful and follows few basic commands. Actually squeezed with both his L and R hand although R weaker than the L. Did not move feet and feet remain in air boots with
foot drop. RASS is a -1 and CPOT is a 0-1. Tolerating ASV settings as documented. ETT repositioned on the L side of the mouth at the 26 cm angelina. Suctioned for thick whitish secretions. MOd amt. VS as documented. HR does go up into the 120's but does
not stay sustained. Tolerating tube feeds. Urine remains bloody tinged. Currently IV Vikas turned off as BP's have improved - currently 120/91. Amiodarone remains at 0.5 mg. Precedex at 0.2 mcg. Incont of a mod to large amt of pasty/loose brown
stool-heme + . Family at the bedside.
--- NOTE | 2025-04-01 15:39 | CM ---
Intubated, IV/Amiodarone, IV/AB, IV/Precedex. Discharge POC: TBD.
--- NOTE | 2025-04-01 16:05 | PTCARENOTE ---
Pt very wide eyed and uncomfortable looking. HR running in the 130-140's afib. RR 25-27- Medicated with Fentanyl 50 mcg IV and will increase PRecedex back up to 0.3 mcg. Vikas remains off currently.
--- NOTE | 2025-04-01 16:08 | WOUNDNOTE ---
WOC RN NOTE: Reviewed chart and met with patient. WOC RN consult received for new DTI to sacrum. Upon assessment patient has a DTI that is located on left sacral area. There are no open areas noted. The wound was cleaned, incontinence care provided
and patient was positioned off of sacrum with turning wedge. RN Salome updated and Dr. Wilder notified. This business writer spoke to patients and explained that DTI is evolving and may worsen. expressed understanding and said she was aware of
wound. Heels off-loaded in air filled boots. Heels intact. Patient has several comorbidities including cardiogenic shock and use of vasopressors, respiratory failure, and metastatic prostate cancer. Wounds may worsen and new wounds may develop even
with optimal care.
--- NOTE | 2025-04-01 17:35 | PTCARENOTE ---
Pt calmed briefly with the earlier Fentanyl but now is wide eyed again and HR elevated 130-140's.A fib Remedicated with Fentanyl 50 mcg and Precedex increased to 0.4 mcg. Pt will nod no to having pain. No other changes in assessment. Repositioned.
Suctioned for thick whitish secretions. Remains off of IV Vikas. Skin and mouth care given.
[2025-04-01 17:41] LABS: Glucose - Point of Care 247 mg/dl (70-99)
[2025-04-01] MEDS: NOVOLOG FLEXPEN-MODERATE RESISTANCE 3 UNITS SC (18:07)
--- NOTE | 2025-04-01 18:40 | PTCARENOTE ---
Calmer since Fentanyl but still opens eyes. CBC sent as ordered.
[2025-04-01 18:48] LABS: Hematocrit 24.5 % (39.0-52.0); Hemoglobin 7.9 g/dL (13.0-18.0); Mean Corp Hgb Conc. 32.2 g/dL (33.0-37.0); Mean Corpuscular Hgb 28.8 pg (27.0-31.0); Mean Corpuscular Volume 89.4 fL (80.0-94.0); Mean Platelet Volume 11.2 fL (7.4-10.4); Platelet Count 207 10^3/uL (130-400); Red Blood Cell Count 2.74 10^6/uL (4.70-6.10); Red Cell Dist. Width 16.4 % (11.5-14.5); White Blood Cell Count 10.2 10^3/uL (4.8-10.8)
--- NOTE | 2025-04-01 21:20 | W.PN.ID1 ---
Date of Service
Date of Service: April 01, 2025
Today's Communication
continue Ceftriaxone for now
Assessment / Plan
1. Patient transferred to this facility for possible repair/replacement of abnormal MV
2. Patient with bacteremia on prior admission with Streptococcus viridans currently on Ceftriaxone with negative blood cultures
3. Patient with cholecystitis requiring decompression in setting of acute cholecystitis treated with piperacillin/tazobactam
4. Per patient with recent dental visit in setting of very poor dentition
5. Several weeks ago patient diagnosed in urgent care facility with right lower lobe pneumonia/bronchitis treated with azithromycin and Ceftin
6. Current repeat blood cultures pending
7. WBC 15.4 /T 98.5
8. Patient currently on Ceftriaxone
9. CXR today with slight progression of atelectasis in LLL
Chief Complaint
-: Leukocytosis (ventilator dependent,intubated) and Other (possible bacterial endocarditis as etiology of MV abnormality patient currently with negative blood cultures and is afebrile without leukocytosis)
Subjective / Review of Systems
Review of Systems: No Fever, No Chills, No Headache, No Pharyngitis, No Stiff Neck, No Swollen Lymph Nodes, No Cough, Sputum Production, No Chest Pain, No Palpitations, No Abdominal Pain, No Nausea, No Vomiting, No Diarrhea and No Dysuria
Vital Signs / Physical Exam
Vital Signs
Vital Signs
Temp Pulse Resp BP Pulse Ox
97.9 F 117 17 113/70 99
04/01/25 19:44 04/01/25 20:00 04/01/25 20:00 04/01/25 20:00 04/01/25 21:00
Physical Exam
Constitutional: Well Developed, Comfortable, Acutely Ill, Chronically Ill, Non-toxic and Obese
Head: Normocephalic
Eyes: Pupils Equal, Pupils Round, No Conjunctival Hemorrhage and Sclera Anicteric (making eye contact today)
Oropharyngeal: Benign
Cardiovascular: Regular Rate
Pulmonary: Clear and Non Labored
Gastrointestinal: Soft, Non Distended, Decreased Bowel Sounds, No Rebound and No Guarding
Genito-Urinary: Christian
Skin: Warm and Dry
Wound: None
Neurological: Awake (follows some commands, makes eye contact , with occassional tracking)
Psychological: Calm and Confused
Lines: CVP
Objective Data
Lab Data
Lab Results
04/01/25 18:38
04/01/25 03:04
PT 15.0 Sec (11.4-14.6) H 04/01/25 06:05
INR 1.13 04/01/25 06:05
APTT 75.7 Sec (23.4-35.0) H 04/01/25 06:05
Estimated Creat Clear 96 ml/min 04/01/25 03:04
Lactic Acid 0.8 mmol/L (0.7-2.0) 03/30/25 01:21
Total Bilirubin 0.8 mg/dl (0.2-1.3) 04/01/25 03:04
AST 28 U/L (17-59) 04/01/25 03:04
ALT 57 U/L (0-50) H 04/01/25 03:04
Alkaline Phosphatase 88 U/L (38-126) 04/01/25 03:04
Most recent labs reviewed.
Microbiology: Report Reviewed
Micro Results:
03/31/25 20:32 Respiratory Culture - Pending
Endotracheal Gram Stain - Preliminary
03/30/25 01:54 Blood Culture - Preliminary
Blood/Venous No Growth in 48 hours- Final report to follow
03/30/25 01:22 Blood Culture - Preliminary
Blood/Venous No Growth in 48 hours- Final report to follow
03/30/25 01:21 MRSA Screen - Final
Nose No Methicillin Resistant Staphylococcus aureus isolated.
Chest X-Ray: Report Reviewed
Care Review
Plan reviewed with: Nurse
Total Time Spent with Patient (in minutes): 35
--- NOTE | 2025-04-01 21:30 | PTCARENOTE ---
Rectal trumpet placed due to frequent loose incontinent stools.
[2025-04-01 23:57] LABS: Glucose - Point of Care 151 mg/dl (70-99)
[2025-04-02] VITALS (53 sets, daily range): BP systolic 87–138; BP diastolic 50–102; BMI 30.6
[2025-04-02] MEDS: NOVOLOG FLEXPEN 3 UNITS SC ×3 (00:38→23:59)
[2025-04-02] MEDS: NOVOLOG FLEXPEN-MODERATE RESISTANCE 1 UNITS SC ×3 (00:39→12:15)
[2025-04-02 03:31] LABS: Adrenocorticotropic Hormone 2.9 pg/mL (7.2-63.3)
[2025-04-02 04:02] LABS: % Basophils 0.3 % (0-2); % Eosinophils 2.1 % (0-6); % Immature Granulocytes 1.5 % (0-0.5); % Lymphocytes 9.6 % (20.5-51.1); % Monocytes 5.7 % (1.7-9.3); % Neutrophils 80.8 % (42.2-75.2); Absolute Eosinophils 0.2 10^3/uL (0-0.7); Absolute Immature Granulocytes 0.1 10^3/uL (0-0.05); Absolute Lymphocytes 0.9 10^3/uL (1.2-3.4); Absolute Monocytes 0.5 10^3/uL (0.1-0.6); Absolute Neutrophils 7.6 10^3/uL (1.4-6.5); Hematocrit 23.9 % (39.0-52.0); Hemoglobin 7.7 g/dL (13.0-18.0); Mean Corp Hgb Conc. 32.2 g/dL (33.0-37.0); Mean Corpuscular Hgb 28.9 pg (27.0-31.0); Mean Corpuscular Volume 89.8 fL (80.0-94.0); Mean Platelet Volume 11.1 fL (7.4-10.4); Nucleated Red Blood Cells % 0 % (-); Platelet Count 202 10^3/uL (130-400); Red Blood Cell Count 2.66 10^6/uL (4.70-6.10); Red Cell Dist. Width 16.3 % (11.5-14.5); White Blood Cell Count 9.4 10^3/uL (4.8-10.8)
[2025-04-02 04:22] LABS: ALT (SGPT) 64 U/L (0-50); AST (SGOT) 35 U/L (17-59); Albumin 2.5 g/dl (3.5-5.0); Alkaline Phosphatase 101 U/L (38-126); Blood Urea Nitrogen 30 mg/dl (9-20); Calcium 7.7 mg/dl (8.4-10.2); Carbon Dioxide 25 mmol/L (22-30); Chloride 111 mmol/L (98-107); Estimated Creatinine Clearance 109 ml/min; Glucose 140 mg/dl (70-99); Potassium 3.3 mmol/L (3.5-5.1); Sodium 141 mmol/L (135-145); Total Bilirubin 0.7 mg/dl (0.2-1.3); Total Protein 5.3 g/dl (6.3-8.2); eGFR > 60.00
[2025-04-02] MEDS: KCL 100 IV (05:13)
[2025-04-02 06:04] LABS: Glucose - Point of Care 174 mg/dl (70-99)
[2025-04-02] MEDS: PRECEDEX 100 IV ×2 (06:06→15:33)
[2025-04-02] MEDS: MIRALAX TUBE (07:08)
--- NOTE | 2025-04-02 07:08 | W.PN.URO.CBU ---
Today's Communication / Plan
-
continue pacheco
hold heparin for now
await care decision
Assessment / Plan
-
metastatic prostate cancer
hematuria- suspect due to xrt/cryo
psa's psa-1
urine clear off heparin
due for MRI of brain
tentatively posted for OR cysto tomorrow- would proceed if there seems to be any possibility that pt will proceed at some point to cardiac surgery or if critical that heparin be restarted- [facility]- pt is not a candidate for anticoagulation given
prostate hx and almost certain intractable hematuria in this setting
will again reach out to care team today
Diagnosis
-
Date of Service: April 02, 2025
-
Patient Urologic Diagnosis:
hematuria
prostate cancer
Subjective
-
pt more 'awake' this am
vent wean stalled last night
urine now clear off heparin
psa= 1
Objective
-
Vital Signs
Temp Pulse Resp BP Pulse Ox
97.7 F 71 20 89/58 100
04/02/25 03:12 04/02/25 06:00 04/02/25 06:00 04/02/25 06:00 04/02/25 05:31
Intake and Output
04/01/25 04/02/25 04/03/25
06:59 06:59 06:59
Intake Total 2157.5 / 2349.5 3255.3 / 3255.3
Output Total 1780 / 1780 1883 / 1883
Balance 377.5 / 569.5 1372.3 / 1372.3
Intake:
IV fluids (Total) 1207.5 / 1334.5 995.3 / 995.3
AMIO 450.2 / 466.9 400.8 / 400.8
Heparin 360 / 378 54 / 54
KCL 67.5 / 135.0 202.5 / 202.5
PRECEDEX 203.8 / 216.6 239.0 / 239.0
Propofol 0 / 0
cardizem 30 / 30
fentanyl 0 / 0
alfredito 96 / 108 99 / 99
Tube feeding 360 / 400 1275 / 1275
Feeding tube flush amount 330 / 355 725 / 725
Amount instilled into Drain (
Total)
Right Middle Abdomen Biliary
Blood Products 250 / 250
Albumin 5% 250 / 250
Blood Product Amount Infused ( 250 / 250
mL)
Packed Rbc Leukoreduced Unit 250 / 250
[id number]
Output:
Drain Output (Total) 365 / 365 405 / 405
Right Middle Abdomen Biliary 365 / 365 405 / 405
Urine, Pacheco 1415 / 1415 1478 / 1478
Laboratory Results
04/02/25 03:46
04/02/25 03:46
Review of Systems
-
Unable to obtain full review of systems at this time due to: Patient Intubation
Physical Exam
-
General - no acute distress
Abdomen - soft, non-tender
Genitalia - pacheco in place- urine lisa
[2025-04-02] MEDS: ZYLOPRIM 100 MG TUBE (07:37)
[2025-04-02] MEDS: LOW STRENGTH ASPIRIN 81 MG TUBE (07:37)
[2025-04-02] MEDS: PEPCID 20 MG TUBE (07:37)
[2025-04-02] MEDS: MYCOSTATIN ORAL SUSPENSION 5 ML TUBE ×4 (07:37→23:43)
[2025-04-02] MEDS: LIPITOR 40 MG TUBE (07:37)
[2025-04-02] MEDS: SOLU-CORTEF 25 MG IV (07:38)
--- NOTE | 2025-04-02 08:01 | PTCARENOTE ---
Received patient from operations supervisor 2nd shift. patient is awake,alert, following some simple commands intermittently. He is intubated and on low dose precedex. Patient is currently on wean 8/ 40%. Tidal volumes are mid 400s. oxygen saturation 100%. he
has # 8 ETT. He is afib on monitor, rate controlled with amio gtt infusing into triple lumen IJ. Patient is NPO, dose have Jevity 1.5 running at goal of 55ml/hr. prosource packet given this morning. Patient has round, obese belly, is having
loose stools, rectal trumpet in place. Miralax held per order. patient has lisa urine. Dr. valera at bedside, may irrigate as needed, no longer q8hrs. Skin to be documented in focused assessment in worklist. Will review orders, plan for MRI
today.
--- NOTE | 2025-04-02 08:27 | W.PN.INTV ---
Today's Communication / Plan
Recommendations
Extubated today to BiPAP
Defer mitral valve intervention to cardiothoracic surgery -ideally this would be done as an outpatient however given the patient's significant deconditioning this is unlikely
Continue antibiotics per ID
Follow-up surveillance blood cultures checked on 03/30/2025
Heparin drip now off; 1 unit PRBC being transfused on AM of 04/01
Urology consulted than possible OR for cystoscopy this Sunday -now the patient is extubated, DNR/DNI with no heroic measures per the family, unclear if cystoscopy still needed. Final decision deferred to urology
Continue amiodarone drip
Guarded prognosis
Discussed code status with the patient's son and today, and they wish to make him DNR/DNI. They are not interested in any heroic measures as they do not want the patient to be suffering. If he were to deteriorate any further, they are
interested in transitioning to comfort care with hospice.
Assessment
-
Assessment: 69-year-old male former tobacco smoker with a past medical history of of gout, prostate cancer (diagnosed 2012) s/p XRT with relapse in 2015 s/p cryotherapy, and another relapse in 2023 currently being treated with abiraterone, and
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 Patient has a known history of moderate to severe mitral regurgitation, with last echo done here at from 04/16/2024 showing posterior MV
leaflet prolapse with moderate mitral regurgitation and LVEF 55 to 60%. Patient was following with cardiology with Dr. Rodriguez at the time. Patient was asymptomatic at the time and repeat echo was ordered for April 07, 2025. The patient developed
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 RLL pneumonia/bronchitis was suspected at urgent care and he was prescribed Zithromax + Ceftin. Patient saw his PCP on 03/16/2025 and found to
be in new onset A-fib with RVR and was sent to [facility]. While at [facility], he was started on Cardizem gtt + esmolol gtt. patient cardiac arrested on 03/17 which was preceded by bradycardia and then asystole, and received ROSC after 2 amps
of epinephrine and 1 amp of bicarb. Per documentation, patient underwent TTM. Evaluation for an acute PE was negative. Patient was found to be bacteremic reportedly with Streptococcus viridans. Patient also diagnosed with acute cholecystitis and
underwent percutaneous cholecystostomy tube placement by IR on 03/19. Patient had been started on antibiotics with Zosyn. Patient continued to be intubated since the day of his cardiac arrest on 03/17 with great difficulty weaning his sedation and
performing weaning trials due to tachycardia with hypertension and tachypnea. TONE performed on 03/27/2025 showed mildly thickened MV leaflets with P2 flail. Superimposed MV vegetation unable to be ruled out. Patient then transferred here to for
further evaluation for cardiothoracic intervention. Carriage Rider service is now consulted for additional management/recommendations.
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
in 2023, hypothyroidism, gout
Impression:
#Ventilator dependent respiratory failure/acute hypoxic respiratory failure � intubated 03/17/2025 during in-hospital cardiac arrest at [facility], extubated 04/02/2025
#In-hospital cardiac arrest at [facility] on 03/17/2025 (reportedly, patient became bradycardic and then developed asystole with ROSC obtained after 2 amps epi and 1 amp bicarb) s/p TTM
#Acute encephalopathy and upward gaze preference (left eye > right eye) - no acute intracranial pathology on CTh from 03/30/2025
#Acute cholecystitis s/p percutaneous cholecystostomy tube placement (performed at [facility] on 03/19/2025) - bile fluid Cx reportedly negative as mentioned above
#Severe, eccentric mitral valve regurgitation with posterior leaflet MVP with reported P2 flail with possible vegetation
#New onset atrial fibrillation
#Hematuria
#Anemia
#Transaminitis (elevated ALT)
#Bacteremia due to Streptococcus viridans (per patient's family)
#Minimally displaced sternal fracture due to recent CPR
#Metastatic prostate cancer (diagnosed 2012) s/p XRT with relapse (2015) s/p cryotherapy and another relapse in 2023 currently being treated with abiraterone
#Gout
Plan:
- Unclear sequence of events, however seems as if he had an initial respiratory infection and then developed cardiac arrest, likely due to subacute MV endocarditis with valve destruction leading to severe MR, and possible acute cholecystitis as a
result of critical illness (as no stone reported and reportedly the bile was cultured and showed no growth)
- s/p LHC on 03/30 showing right dominant circulation with no CAD with top normal�mildly elevated filling pressures (LVEDP: 13 mmHg)
- TTE performed on 03/30/2025 showed severe eccentric MR with posterior leaflet mitral valve prolapse and unable to exclude a flail segment, with moderate AI, normal RV size/function and normal LV size/function (LVEF: 60-65%) with no regional WMA
- [facility] medical records are in his physical chart; may benefit from repeating TONE so have an updated view of his MV and re-assess for flail at P2, however a TONE with cardioversion was attempted on 03/27/2025 but was unsuccessful (unclear why) - will
defer TONE and any cardiothoracic intervention to CT surgery here - ideally will be evaluated for MV intervention as an outpatient
- Pt had been intubated since 03/17, now extubated as of this AM after he tolerated SBT, and extubated to BiPAP
- Patient's /son are not interested in tracheostomy
- If patient deteriorates further then they are interested in transitioning to comfort care measures
- As of 04/01/2025, Dr. Granger had a discussion with CT surgeon, Dr. Johnson, and there is no emergent need to intervene on his MV as he has chronic eccentric MR, and it is currently not torrential
- Ideally patient will be allowed to recover, and follow-up with CT surgery as an outpatient for an expedited surgery scheduling; if patient does end up having flash pulmonary edema, then he would need to have a more urgent intervention of his
mitral valve during current hospitalization, however the family feels that the postoperative course would be complicated and they are not sure that the patient can currently handle this without additional risk and further suffering
- Keep SpO2 >90-94%
- Continue aspiration precautions; keep HOB >30-45�
- prn nebulized bronchodilators - not currently bronchospastic
- Oropharyngeal suctioning as needed
- Neurology consulted on 03/30 given his prolonged hospital course with reports of inappropriate awakening, however as of 03/31 he is opening his eyes to commands but remains encephalopathic and stuporous
- He had remained stuporous, occasionally following simple commands as of 04/01 --> was going to check MRI brain but now that he is awake as of 04/02 and following commands, we will hold off on this for now.
- CT head on 03/30/2025 showed no acute intracranial abnormality
- Neurology consulted and recs appreciated
- He remains on precedex gtt - wean off as tolerated
- Continue with antibiotics, currently on ceftriaxone 2,000 mg IV q24hr
- ID consulted - recs appreciated
- Follow-up blood cultures x 2 drawn 03/30 + respiratory culture from ETT
- There is a mild retrocardiac opacity concerning for pneumonia, and CT chest from 03/30/2025 shows bibasilar consolidations likely due to compressive atelectasis from bilateral pleural effusions and less likely pneumonia however this is unable to
be ruled out - continue Abx and if pt spikes fever then would consider broadening Abx further to cover Pseudomonas; MRSA swab negative
- Trend WBC and monitor for fevers
- Trend LFTs
- Trend perc yasmany drain output
- Maintain MAP>65 - currently off all pressors
- Currently on hydrocortisone - will wean off today and start his home prednisone dose.
- Resume metoprolol - defer to cardiology
- Maintain HR <110 --> continue with amiodarone drip; defer changing to PO amio to cardiology
- Heparin gtt now off; unable to resume at this time given his intermittent significant hematuria
- Cardiology on board - recs appreciated
- Replete electrolytes with K>4, Mg>2
-Patient has been having hematuria while at [facility], and occasionally occurring here as well
- Christian catheter in place
- Trend H/H and transfuse if needed to keep Hb>7-8g/dL; keep plt>50k
- Hematuria may be due to Christian catheter in the setting of heparin drip although he also has active prostate cancer so this may also be contributing
- Oncology already on board and recs appreciated
- Continue to monitor hematuria --> given his complicated urological history, patient likely going to OR tomorrow for cystoscopy with biopsy/clot evacuation and fulguration; continue keeping patient off heparin drip. Patient is at high risk for
this procedure although given his ongoing hematuria, and given that he is off vasopressors, I believe that the benefits outweigh the risks.
- now that he is extubated and may be heading towards comfort care, would recommend to hold off. Final decision deferred to Urology
- Maintain euglycemia with goal BG 140-180
- Stress ulcer ppx - pepcid (can DC now that he is extubated)
- Early nutrition - tube feeds now on hold since he is extubated
- DVT ppx: SCDs; heparin drip now off in the setting of anemia with hematuria
Code status:discussed code status with the patient's son and today, and they wish to make him DNR/DNI. They are not interested in any heroic measures as they do not want the patient to be suffering. If he were to deteriorate any further, they
are interested in transitioning to comfort care with hospice.
Critical care statement: A total of 37 minutes of critical care time was provided for this patient today. This includes management of unstable vital signs, evaluation of the patient at bedside, reviewing the patient's pertinent medical records
including radiographs, microbiology, laboratory evaluations, and discussion with primary team, consultants, pharmacy, nutrition, physical therapy, case management, charge nurse, critical care nursing, and respiratory therapy.
Data:
Left heart catheterization 03/30/2025:
CONCLUSIONS
1. Right dominant circulation with no coronary artery disease
2. Top normal to mildly elevated filling pressures (LVEDP = 13 mmHg at 102.5 kg).
3. Relative central hypotension (aortic systolic pressure 80 mmHg, mean pressure 66 mmHg), better on peripheral A-line (systolic blood pressure of 100), likely due to amplification effect.
Transthoracic echocardiogram 03/30/2025:
Normal left ventricular size and systolic function.
Estimated LV ejection fraction is 60-65%.
Posterior leaflet mitral valve prolapse and sever mitral regugitation
Focal thickening of the aotic valve and mild to moderate aortic regurgitation
Compared to the previous echo report 04/16/24 the degree of mitral regurgitation
has increased ( previously moderate). the focal thickeniing fo the aortic
leaflet is more prominent.
CT Head 03/30/2025: No acute intracranial abnormality. Mild cerebral atrophy and mild microvascular changes within the periventricular white matter.
Subjective Dataa
Subjective Data
Date of Service:
Date of Service: April 02, 2025
Chief Complaint: Carriage Rider Follow Up and Vent Management Follow Up
Subjective:
Patient was seen and evaluated this morning. Extubated to BiPAP. Currently on 12/5cmH2O. heart rate 135, saturating 100% and BP 126/91. Currently on Precedex at 0.4 mcg/kg/hr. Currently on amio at 0.5mg/min.
Review of Systems
General: Other (Unobtainable given patient's acute clinical status)
Objective Data
Data Reviewed
Vital Signs / I&O / Oxygen:
Vital Signs
Temp Pulse Resp BP Pulse Ox
98.5 F 127 28 126/77 100
04/02/25 07:57 04/02/25 09:02 04/02/25 09:02 04/02/25 08:30 04/02/25 09:02
Intake and Output
04/01/25 04/02/25 04/03/25
06:59 06:59 06:59
Intake Total 2157.5 / 2349.5 3255.3 / 3362.3 214.0 / 214.0
Output Total 1780 / 1780 1883 / 1923 75 / 75
Balance 377.5 / 569.5 1372.3 / 1439.3 139.0 / 139.0
SaO2 [ASV] 100
SaO2 [CPAP] 98
SaO2 [P-SIMV] 100
SaO2 [A/C] 100
SaO2 100
Physical Exam
General: Respiratory Distress (negative), Comfortable, Chills (negative) and Sweats (negative)
HEENT: Normocephalic and Anicteric
Cardiovascular: Irregular Rhythm, Peripheral Edema (+1 lower extremity pitting edema bilaterally) and Other (Tachycardic)
Respiratory: Wheeze (negative), Crackles (negative), Rhonchi (negative) and Accessory Resp Muscle Use (Mild)
GI: Soft, Non Distended, Non Tender and Normal Bowel Sounds
Neurology: Awake, Tremors (negative) and Other (Drowsy, but following all commands)
Skin: Warm, Dry, Cyanosis (negative) and Jaundice (negative)
Labs/Micro/Reports
Lab Data
04/02/25 03:46
04/02/25 03:46
Laboratory Results
04/02/25
09:07
pH 7.45
pCO2 32 L
pO2 142 H
HCO3 22.2
O2 Delivery Level
Microbiology
03/30/25 01:54 Blood/Venous Blood Culture - Preliminary
No Growth in 72 hours- Final report to follow
03/30/25 01:22 Blood/Venous Blood Culture - Preliminary
No Growth in 72 hours- Final report to follow
03/31/25 20:32 Endotracheal Gram Stain - Preliminary
03/30/25 01:21 Nose MRSA Screen - Final
No Methicillin Resistant Staphylococcus aureus isolated.
--- NOTE | 2025-04-02 09:10 | W.PN.HOSP.TC ---
Addendum entered and electronically signed by Ra Wilder DO 04/02/25 17:10:
Went back to check on patient in the afternoon. Family at the bedside, and son.
Patient successfully extubated.
Currently doing well from oxygenation standpoint, on room air with adequate pulse ox.
Voice is hoarse, has lots of secretions. Able to follow commands and tries to engage in conversation but difficult to understand.
Able to have spontaneous cough.
I am hopeful that he will continue to improve over the next 24 to 48 hours.
Difficult to address goals of care right now as patient has difficulty speaking given significant secretions.
Family wants to avoid urologic procedures for hematuria, they are concerned that if he gets intubated for the procedure that he may not be extubated again. They also want to avoid any anticoagulation moving forward given risk of hematuria. They do
understand risk of stroke in the setting of atrial fibrillation, especially without anticoagulation.
Discussed with nursing.
Addendum entered and electronically signed by Ra Wilder DO 04/02/25 16:27:
Stage I sacral pressure injury, present on admission.
New sacral deep tissue injury -wound care nurse is following.
Original Note:
Today's Communication/Plan
-
Spontaneous breathing trial
Cancel brain MRI
Wean down Precedex
Assessment / Plan
Assessment / Plan
Gen- Awake, alert, NAD, intubated
HEENT-NC, AT, anicteric, white coating on tongue
Neck-supple
CV-reg, no M, +S1/S2
Lungs-clear B/L
Abd-soft, NT, ND
Ext-anasarca
Musculoskeletal-no cyanosis, clubbing
Skin-warm and dry
Neuro-grossly non-focal
Psych-calm, cooperative
Cardiogenic shock -most likely due to severe mitral regurgitation. Flail mitral P2 leaflet. Now on phenylephrine in ICU. Blood pressure improved and currently off vasopressors.
Subacute metabolic encephalopathy -minimize sedation. Mental status appears to be improving. Following commands today. Off sedation currently, on low-dose Precedex, wean down.
CT head on admission without acute disease, mild cerebral atrophy and mild microvascular changes within the periventricular white matter noted.
Discussed with aquatic instructor, brain MRI ordered yesterday but today mental status appears improved. Can hold off on brain MRI if okay with aquatic instructor.
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 Currently on IV ceftriaxone. ID is following. Blood cultures in our hospital have been negative so far.
CT surgery contemplating mitral valve surgery for severe mitral regurgitation, P2 flail leaflet, but so far has been deemed high risk for surgery.
Acute hypoxic respiratory failure -intubated March 17 and remains intubated. ABG noted this morning with PCO2 of 32, PO2 142. Spontaneous breathing trial this morning with goal of extubation hopefully.
In-hospital cardiac arrest -March 17. Reportedly treated with targeted temperature management. Etiology or trigger likely to be due to bacteremia and sepsis.
Minimally displaced acute sternal fracture -likely due to recent cardiac arrest and CPR in [facility].
Acute blood loss anemia on suspected chronic anemia -on review of [facility] records, hemoglobin noted to be 9.8 on March 18. Possibly acute blood loss anemia due to hematuria in the setting of anticoagulation with IV heparin.
Transfused 1 unit of blood 04/01, hemoglobin 7.7 today. IV heparin discontinued 04/01 morning. Stools have been brown. Anticipate he will need transfusion, verbal consent obtained by on the phone, verified by nursing. Patient unable to
provide consent due to encephalopathy.
Possible oral thrush -nystatin.
Acute acalculous cholecystitis -s/p cholecystostomy tube placement March 19.
Metastatic prostate cancer (2012) -hormone resistant. Oncology input noted.
Possible secondary adrenal insufficiency -apparently has been on 10 mg prednisone daily for the past 2 years according to family. Currently on weaning dose of hydrocortisone IV.
ACTH stimulation test performed with brisk cortisol response, suggesting more than adequate adrenal reserves.
New diagnosis of atrial fibrillation -amiodarone per cardiology. Holding metoprolol for hypotension. Poor long-term anticoagulation candidate in the setting of active hematuria and metastatic prostate cancer. Heparin discontinued.
Hematuria -urine in Christian bag now clear. Heparin discontinued 04/01 morning. Urology plans on possible cystoscopy on Sunday.
Gout -stable.
Hyperlipidemia -atorvastatin.
Obesity due to excess calories
Full code
Anticipated Discharge: > 48 hours
Subjective/Interval History
-
Date of Service: April 02, 2025
Patient seen and examined. Seems more awake today, following commands. Still intubated.
Objective Data
-
Labs:
Laboratory Results
04/02/25 04/02/25
03:46 09:07
WBC 9.4
Hgb 7.7 L
Hct 23.9 L
Plt Count 202
HCO3 Pending
Sodium 141
Potassium 3.3 L
Chloride 111 H
Carbon Dioxide 25
BUN 30 H
Creatinine 0.7
Glucose 140 H
Calcium 7.7 L
Total Bilirubin 0.7
AST 35
ALT 64 H
Alkaline Phosphatase 101
Vital Signs:
Vital Signs
Temp Pulse Resp BP Pulse Ox
98.5 F 127 28 126/77 100
04/02/25 07:57 04/02/25 09:02 04/02/25 09:02 04/02/25 08:30 04/02/25 09:02
I&O
04/01/25 04/02/25 04/03/25
06:59 06:59 06:59
Intake Total 2157.5 / 2349.5 3255.3 / 3362.3 214.0 / 214.0
Output Total 1780 / 1780 1883 / 1923 75 / 75
Balance 377.5 / 569.5 1372.3 / 1439.3 139.0 / 139.0
Review of Systems
-
Unable to obtain full review of systems at this time due to: Acuity and Patient Intubation
[2025-04-02 09:14] LABS: B.E. -1.4 mmol/L; HCO3 22.2 mmol/L (21-28); O2 Saturation % 99.1 % (94-98); PCO2 32 mmHg (35-48); PO2 142 mmHg (83-108); pH 7.45 (7.35-7.45)
[2025-04-02] MEDS: ROCEPHIN 2000 MG IV (09:41)
[2025-04-02] MEDS: STERILE WATER FOR INJECTION 20 ML IV (09:41)
--- NOTE | 2025-04-02 10:20 | W.PN.UPDATE ---
Update Note
Progress Note Update
Called and spoke with the . Explained that the pt is awake, tolerating PST and that we can extubate him from the ventilator. We did discuss that if we extubate him and he does not do well, would the want us to re-intubate him, which
would likely end with a tracheostomy. The said that she had spoken to her family about this and they do not want this for him. They said that if he were to worsen to just keep him comfortable. All questions were answered. Decision made to
extubate, continue full medical management, and if he were to worsen to transition to comfort care. The family is ok with him being DNR/DNI, as they do not want heroic measures. Primary RN updated. Hospitalist also updated.
--- NOTE | 2025-04-02 10:27 | PTCARENOTE ---
Patient extubated to Bipap. Dr. Granger spoke with patient's , if patient decompensates, would like to be comfortable, DNR DNI
--- NOTE | 2025-04-02 10:35 | W.PN.CD ---
Today's Communication / Plan
-
no anticoagulation going forward
extubation trial
amiodarone drip
Impression / Plan
-
I/P: 69M with moderate MR (flail P2) now severe, HLD, metastatic prostate cancer (on Abiraterone & prednisone), gout, and hypothyroidism presents as a transfer from [facility] () with severe mitral regurgitation with possible
vegetation.
Outpatient Screener And Blender Operator: Dr. Rodriguez
Patient is critically ill.
S/p PEA cardiac arrest 03/17/2025
-10 minutes od CPR prior to ROSC, epi x 2, no shocks -> s/p TTM
-On stress dose steroids, he is on chronic prednisone 5mg BID as an outpatient
Vent dependent respiratory failure
-trial of extubation today
-if fails, there will be no plans for re-intubation
Atrial fibrillation with RVR
-Failed 03/27/25 DCCV, near immediate return of RVR
-[id number]: score at least 1 (age 65-74)
-heparin stopped due to downtrending Hgb and hematuria: discussed with urology, and he is not a good candidate for OAC due to prostate radiation
-using amiodarone drip for rate control in setting of shock
Shock, likely mixed cardiogenic/septic with bacteremia (Streptococcus viridans) and severe MR
-ID consulted: IV abx
-improved: off of pressors
Mitral regurgitation, severe
-EF 60-65%, also with mild/mod AR
-Flail P2 (which was present last year), but now also concern for bacterial endocarditis
-undergoing CT surgery evaluation
Hematuria
-heparin off, urology consulted
cholecystitis, perc yasmany tube placed at [facility] 03/19/2025, seen by GS this admit
Prostate cancer, metastatic, on Abiraterone
PVCs, burden 4.6% on Holter (2023)
Former smoker, continued cessation recommended
CCT 30 min
DATA:
Cardiac catheterization, 03/30/2025:
CONCLUSIONS
1. Right dominant circulation with no coronary artery disease
2. Top normal to mildly elevated filling pressures (LVEDP = 13 mmHg at 102.5 kg).
3. Relative central hypotension (aortic systolic pressure 80 mmHg, mean pressure 66 mmHg), better on peripheral A-line (systolic blood pressure of 100), likely due to amplification effect.
TTE, 03/30/2025:
Normal left ventricular size and systolic function.
Estimated LV ejection fraction is 60-65%.
Posterior leaflet mitral valve prolapse and severe mitral regurgitation
Focal thickening of the aortic valve and mild to moderate aortic regurgitation
Compared to the previous echo report 04/16/24 the degree of mitral regurgitation
has increased ( previously moderate). the focal thickening fo the aortic
leaflet is more prominent.
TONE, 03/27/2025:
Mild AR.
MV leaflets thickened. Flail P2. Vegetation cannot be excluded.
CT PE 03/16/2025:
Moderate pericardial effusion.
Bilateral pleural effusions, R > L.
Physical Exam
Vital Signs/Labs
Vital Signs
Temp Pulse Resp BP Pulse Ox
98.5 F 130 28 124/73 100
04/02/25 07:57 04/02/25 10:00 04/02/25 10:00 04/02/25 10:00 04/02/25 10:00
04/01/25 04/02/25 04/03/25
06:59 06:59 06:59
Actual Weight 103.2 kg 105.1 kg
04/02/25 03:46
04/02/25 03:46
PT 15.0 Sec (11.4-14.6) H 04/01/25 06:05
INR 1.13 04/01/25 06:05
APTT 75.7 Sec (23.4-35.0) H 04/01/25 06:05
Magnesium 2.1 mg/dl (1.6-2.3) 03/31/25 03:42
Triglycerides 167 mg/dl (10-149) H 03/30/25 01:21
LDL Cholesterol, Calc 50 mg/dl 03/30/25 01:21
VLDL Cholesterol, Calc 33 mg/dl (0-30) H 03/30/25 01:21
HDL Cholesterol 36 mg/dl 03/30/25 01:21
Digoxin < 0.4 ng/ml (0.8-2.0) L 03/30/25 08:33
Physical Exam
Constitutional: Other (intubated)
Cardiovascular: Rhythm/rate is irregular, Pedal edema present, JVD present and Systolic murmur present
Respiratory: Other (on vent)
Data Reviewed
-
Date of Service: April 02, 2025
EKG: Other (Tele: A fib 80s-130s)
Labs: Labs Reviewed by me
Critical Care Time (in minutes): 30
[2025-04-02 11:42] LABS: Glucose - Point of Care 193 mg/dl (70-99)
[2025-04-02] MEDS: NOVOLOG FLEXPEN SC ×2 (12:15→17:45)
[2025-04-02] MEDS: LOPRESSOR 25 MG TUBE ×3 (12:21→23:53)
--- NOTE | 2025-04-02 13:22 | PTCARENOTE ---
Patient remains extubated, family present at bedside, updated on plan of care. would like patient to be comfortable.
[2025-04-02] MEDS: CORDARONE 518 MG IV (14:56)
--- NOTE | 2025-04-02 16:04 | PN.CDI ---
CDI
- -
CDI:
Physician Documentation Request
Admit Date: 03/29/25 21:24
Dear Doctor Meño,
Please review the following and provide your response in the progress notes.
Clinical Indicators:
- RN skin assessment indicate Stage 1 sacrum pressure injury, POA
- 04/01 Wound note indicates new DTI to sacrum
Physician documentation of the type and location of wounds is required for compliant documentation. Based on the above clinical findings and your assessment, please provide the following in your progress note:
1. Location of the ulcer/wound, including laterality.
2. Type (etiology) of ulcer/wound:
- Diabetic ulcer
- Arterial (ischemic) ulcer
- Venous stasis ulcer
- Pressure (decubitus) ulcer
- Other
Use of terms such as suspected, likely, concern for, or probable (associated with a specific diagnosis that is being evaluated, monitored, or treated as if it exists) are acceptable and can be coded in the inpatient setting, when documented at the
time of discharge.
Thank you,
Rod Henry RN
CDI Specialist
Please use your independent medical judgment in providing your response.
*Source: National Pressure Ulcer Advisory Panel (NPUAP)
--- NOTE | 2025-04-02 16:15 | CM ---
Extubated to Bipap, Now DNR/DNI, Amiodarone gtt., IV/Meds. Discharge POC: TBD based on medical progression.
--- NOTE | 2025-04-02 16:54 | PTCARENOTE ---
Patient has woken up, was able to speak with family, did state 'I want to ' to son and . support provided to family. Dr. Wilder called to bedside, patient is still on precedex, confused at times. Continuing to update patient to situation.
Patient is now on room air, obtained order for NT suction, patient profoundly weak. Will continue supportive care.
[2025-04-02 17:43] LABS: Glucose - Point of Care 125 mg/dl (70-99)
[2025-04-02] MEDS: NOVOLOG FLEXPEN-MODERATE RESISTANCE SC (17:45)
--- NOTE | 2025-04-02 18:35 | PTCARENOTE ---
will keep patient NPO, and tube feeds on hold overnight per Dr. Granger.
[2025-04-02] MEDS: DELTASONE 5 MG PO (19:16)
--- NOTE | 2025-04-02 20:30 | PTCARENOTE ---
Frequent mouth care and suctioning performed for excess secretions.
--- NOTE | 2025-04-02 20:32 | W.PN.ID1 ---
Date of Service
Date of Service: April 02, 2025
Today's Communication
no current evidence of acute infection
Assessment / Plan
1. Patient transferred to this facility for possible repair/replacement of abnormal MV /concern for endocarditis versus chord defect
2. Patient with bacteremia on prior admission with Streptococcus viridans currently on Ceftriaxone with negative blood cultures
3. Patient with cholecystitis requiring decompression in setting of acute cholecystitis treated with piperacillin/tazobactam
4. Per patient with recent dental visit in setting of very poor dentition
5. Several weeks ago patient diagnosed in urgent care facility with right lower lobe pneumonia/bronchitis treated with azithromycin and Ceftin
6. Current repeat blood cultures pending with NGTD
7. WBC normal
8. Patient currently on Ceftriaxone
9. CXR clear
Chief Complaint
-: Leukocytosis (ventilator dependent,intubated) and Other (possible bacterial endocarditis as etiology of MV abnormality patient currently with negative blood cultures and is afebrile without leukocytosis)
Subjective / Review of Systems
Review of Systems: No Fever, No Chills, No Headache, Pharyngitis, No Stiff Neck, Cough, No Sputum Production, No Abdominal Pain, No Nausea, No Vomiting, No Diarrhea, No Dysuria and No Skin Rash
Vital Signs / Physical Exam
Vital Signs
Vital Signs
Temp Pulse Resp BP Pulse Ox
96.9 F L 97 22 126/78 96
04/02/25 19:18 04/02/25 18:30 04/02/25 18:30 04/02/25 18:30 04/02/25 16:00
Physical Exam
Constitutional: Well Developed, Acutely Ill, Chronically Ill and Non-toxic
Head: Normocephalic
Eyes: Pupils Equal, Pupils Round, No Conjunctival Hemorrhage and Sclera Anicteric
Oropharyngeal: Benign
Cardiovascular: Regular Rate
Pulmonary: Coarse and Non Labored
Gastrointestinal: Soft, Non Distended and Decreased Bowel Sounds
Genito-Urinary: Christian
Extremities: Other (drop foot left now wearing boots)
Skin: Warm and Dry
Wound: None
Neurological: Awake and Alert
Psychological: Confused
Lines: CVP
Objective Data
Lab Data
Lab Results
04/02/25 03:46
04/02/25 03:46
PT 15.0 Sec (11.4-14.6) H 04/01/25 06:05
INR 1.13 04/01/25 06:05
APTT 75.7 Sec (23.4-35.0) H 04/01/25 06:05
Estimated Creat Clear 109 ml/min 04/02/25 03:46
Lactic Acid 0.8 mmol/L (0.7-2.0) 03/30/25 01:21
Total Bilirubin 0.7 mg/dl (0.2-1.3) 04/02/25 03:46
AST 35 U/L (17-59) 04/02/25 03:46
ALT 64 U/L (0-50) H 04/02/25 03:46
Alkaline Phosphatase 101 U/L (38-126) 04/02/25 03:46
Most recent labs reviewed.
Microbiology: Report Reviewed (cultures NGTD)
Micro Results:
03/31/25 20:32 Respiratory Culture - Preliminary
Endotracheal NO GROWTH
Gram Stain - Preliminary
03/30/25 01:54 Blood Culture - Preliminary
Blood/Venous No Growth in 72 hours- Final report to follow
03/30/25 01:22 Blood Culture - Preliminary
Blood/Venous No Growth in 72 hours- Final report to follow
03/30/25 01:21 MRSA Screen - Final
Nose No Methicillin Resistant Staphylococcus aureus isolated.
Chest X-Ray: Report Reviewed
Care Review
Plan reviewed with: Nurse and Other (family)
Total Time Spent with Patient (in minutes): 25
[2025-04-03] VITALS (24 sets, daily range): BP systolic 100–139; BP diastolic 57–98; BMI 30.1
--- NOTE | 2025-04-03 | PTCARENOTE ---
Pt having frequent loose brown stools.
[2025-04-03 00:09] LABS: Glucose - Point of Care 125 mg/dl (70-99)
[2025-04-03 04:17] LABS: % Basophils 0.3 % (0-2); % Eosinophils 1.4 % (0-6); % Immature Granulocytes 1.1 % (0-0.5); % Lymphocytes 8.6 % (20.5-51.1); % Monocytes 4.5 % (1.7-9.3); % Neutrophils 84.1 % (42.2-75.2); Absolute Eosinophils 0.2 10^3/uL (0-0.7); Absolute Immature Granulocytes 0.1 10^3/uL (0-0.05); Absolute Monocytes 0.5 10^3/uL (0.1-0.6); Absolute Neutrophils 10.1 10^3/uL (1.4-6.5); Hematocrit 26.1 % (39.0-52.0); Hemoglobin 8.6 g/dL (13.0-18.0); Mean Corpuscular Hgb 29.2 pg (27.0-31.0); Mean Corpuscular Volume 88.5 fL (80.0-94.0); Mean Platelet Volume 10.8 fL (7.4-10.4); Nucleated Red Blood Cells % 0 % (-); Platelet Count 221 10^3/uL (130-400); Red Blood Cell Count 2.95 10^6/uL (4.70-6.10); Red Cell Dist. Width 16.1 % (11.5-14.5)
--- NOTE | 2025-04-03 04:30 | PTCARENOTE ---
Pt weaned off precedex gtt.
[2025-04-03 04:44] LABS: ALT (SGPT) 69 U/L (0-50); AST (SGOT) 32 U/L (17-59); Albumin 2.7 g/dl (3.5-5.0); Alkaline Phosphatase 125 U/L (38-126); Blood Urea Nitrogen 25 mg/dl (9-20); Carbon Dioxide 24 mmol/L (22-30); Chloride 109 mmol/L (98-107); Estimated Creatinine Clearance > 125 ml/min; Glucose 109 mg/dl (70-99); Potassium 3.3 mmol/L (3.5-5.1); Sodium 139 mmol/L (135-145); Total Bilirubin 0.9 mg/dl (0.2-1.3); Total Protein 5.7 g/dl (6.3-8.2); eGFR > 60.00
[2025-04-03] MEDS: LOPRESSOR 25 MG TUBE ×3 (05:14→13:08)
[2025-04-03] MEDS: KCL 100 IV (05:14)
[2025-04-03 06:21] LABS: Glucose - Point of Care 117 mg/dl (70-99)
[2025-04-03] MEDS: NOVOLOG FLEXPEN 3 UNITS SC (06:24)
[2025-04-03] MEDS: NOVOLOG FLEXPEN-MODERATE RESISTANCE SC ×3 (06:24→13:09)
[2025-04-03] MEDS: ZYLOPRIM 100 MG TUBE (08:13)
[2025-04-03] MEDS: LOW STRENGTH ASPIRIN 81 MG TUBE (08:13)
[2025-04-03] MEDS: DELTASONE 5 MG PO (08:13)
[2025-04-03] MEDS: MIRALAX TUBE (08:14)
[2025-04-03] MEDS: LIPITOR 40 MG TUBE (08:14)
[2025-04-03] MEDS: MYCOSTATIN ORAL SUSPENSION 5 ML TUBE ×2 (08:14→13:07)
--- NOTE | 2025-04-03 08:22 | W.PN.INTV ---
Today's Communication / Plan
Recommendations
Extubated yesterday to BiPAP
Now DNR/DNI
Now on room air, but continues to have excessive secretions and unable to lay flat
Family wishes to transition to hospice
Stop all medications unless tailored for comfort
I believe he would be GIP appropriate given he needs symptoms to be managed and is not imminently dying
Emotional support provided to the family
Once he is transitioned to hospice, Pulmonary/Junior Graphic Designer service will sign off. Please call back if there are any questions or concerns.
Assessment
-
Assessment: 69-year-old male former tobacco smoker with a past medical history of of gout, prostate cancer (diagnosed 2012) s/p XRT with relapse in 2015 s/p cryotherapy, and another relapse in 2023 currently being treated with abiraterone, and
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 Patient has a known history of moderate to severe mitral regurgitation, with last echo done here at from 04/16/2024 showing posterior MV
leaflet prolapse with moderate mitral regurgitation and LVEF 55 to 60%. Patient was following with cardiology with Dr. Rodriguez at the time. Patient was asymptomatic at the time and repeat echo was ordered for April 07, 2025. The patient developed
generalized malaise with intermittent dry cough and diarrhea for 2 weeks and he went to urgent care [facility]. RLL pneumonia/bronchitis was suspected at urgent care and he was prescribed Zithromax + Ceftin. Patient saw his PCP on 03/16/2025 and found to
be in new onset A-fib with RVR and was sent to [facility]. While at [facility], he was started on Cardizem gtt + esmolol gtt. patient cardiac arrested on 03/17 which was preceded by bradycardia and then asystole, and received ROSC after 2 amps
of epinephrine and 1 amp of bicarb. Per documentation, patient underwent TTM. Evaluation for an acute PE was negative. Patient was found to be bacteremic reportedly with Streptococcus viridans. Patient also diagnosed with acute cholecystitis and
underwent percutaneous cholecystostomy tube placement by IR on 03/19. Patient had been started on antibiotics with Zosyn. Patient continued to be intubated since the day of his cardiac arrest on 03/17 with great difficulty weaning his sedation and
performing weaning trials due to tachycardia with hypertension and tachypnea. TONE performed on 03/27/2025 showed mildly thickened MV leaflets with P2 flail. Superimposed MV vegetation unable to be ruled out. Patient then transferred here to for
further evaluation for cardiothoracic intervention. Junior Graphic Designer service is now consulted for additional management/recommendations.
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
in 2023, hypothyroidism, gout
Impression:
#Ventilator dependent respiratory failure/acute hypoxic respiratory failure � intubated 03/17/2025 during in-hospital cardiac arrest at [facility], extubated 04/02/2025
#In-hospital cardiac arrest at [facility] on 03/17/2025 (reportedly, patient became bradycardic and then developed asystole with ROSC obtained after 2 amps epi and 1 amp bicarb) s/p TTM
#Acute encephalopathy and upward gaze preference (left eye > right eye) - no acute intracranial pathology on CTh from 03/30/2025
#Acute cholecystitis s/p percutaneous cholecystostomy tube placement (performed at [facility] on 03/19/2025) - bile fluid Cx reportedly negative as mentioned above
#Severe, eccentric mitral valve regurgitation with posterior leaflet MVP with reported P2 flail with possible vegetation
#New onset atrial fibrillation
#Hematuria
#Anemia
#Transaminitis (elevated ALT)
#Bacteremia due to Streptococcus viridans (per patient's family)
#Minimally displaced sternal fracture due to recent CPR
#Metastatic prostate cancer (diagnosed 2012) s/p XRT with relapse (2015) s/p cryotherapy and another relapse in 2023 currently being treated with abiraterone
#Gout
Plan:
- Unclear sequence of events, however seems as if he had an initial respiratory infection and then developed cardiac arrest, likely due to subacute MV endocarditis with valve destruction leading to severe MR, and possible acute cholecystitis as a
result of critical illness (as no stone reported and reportedly the bile was cultured and showed no growth)
- s/p LHC on 03/30 showing right dominant circulation with no CAD with top normal�mildly elevated filling pressures (LVEDP: 13 mmHg)
- TTE performed on 03/30/2025 showed severe eccentric MR with posterior leaflet mitral valve prolapse and unable to exclude a flail segment, with moderate AI, normal RV size/function and normal LV size/function (LVEF: 60-65%) with no regional WMA
- [facility] medical records are in his physical chart; may benefit from repeating TONE so have an updated view of his MV and re-assess for flail at P2, however a TONE with cardioversion was attempted on 03/27/2025 but was unsuccessful (unclear why) - will
defer TONE and any cardiothoracic intervention to CT surgery here - ideally will be evaluated for MV intervention as an outpatient
- Family is now requesting hospice evaluation, hence hold off on any procedures
- Pt had been intubated since 03/17, now extubated to BiPAP as of AM of 04/02 --> now on room air
- Patient's /son were not interested in tracheostomy
- As of 04/01/2025, Dr. Granger had a discussion with CT surgeon, Dr. Johnson, and there is no emergent need to intervene on his MV as he has chronic eccentric MR, and it is currently not torrential
- Ideally patient will be allowed to recover, and follow-up with CT surgery as an outpatient for an expedited surgery scheduling --> family now interested in discussing hospice; hence hold off on any invasive procedures
- Keep SpO2 >90-94%
- Until pt seen by hospice, insert nasal trumpet and start sport bed, 3% NS and nebulized atrovent with NT suctioning to help improve pulmonary toilet
- Continue aspiration precautions; keep HOB >30-45�
- prn nebulized bronchodilators - not currently bronchospastic
- Neurology consulted on 03/30 given his prolonged hospital course with reports of inappropriate awakening, however as of 03/31 he is opening his eyes to commands but remains encephalopathic and stuporous
- He had remained stuporous, occasionally following simple commands as of 04/01 --> MRI planned but he is unable to lay flat due to SOB and excessive tracheal secretions with poor ability to expectorate
- CT head on 03/30/2025 showed no acute intracranial abnormality
- Neurology consulted and recs appreciated
- He is now off precedex gtt
- Currently on Abx, but I will stop this as family now interested in transitioning to hospice
- Hospice consulted
- ID had previously been consulted - recs appreciated
- There is a mild retrocardiac opacity concerning for pneumonia, and CT chest from 03/30/2025 shows bibasilar consolidations likely due to compressive atelectasis from bilateral pleural effusions and less likely pneumonia however this is unable to
be ruled out - MRSA swab negative
- Keep perc yasmany in place drain output
- Maintain MAP>65 - currently off all pressors
- s/p hydrocortisone and now on home prednisone dose; this will be stopped once fully transitioned to hospice
- Resumed metoprolol - this will be stopped once fully transitioned to hospice
- Heparin gtt now off; unable to resume at this time given his intermittent significant hematuria
- Cardiology on board - recs appreciated
-Patient was having hematuria while at H, and occasionally occurring here as well
- Christian catheter in place - would keep in place
- Hematuria may be due to Christian catheter in the setting of heparin drip although he also has active prostate cancer so this may also be contributing
- Oncology already on board and recs appreciated
- No role for OR for cystoscopy given that hospice has been consulted
- Early nutrition - tube feeds resumed - this will be stopped now that he is being transitioned to hospice care
- DVT ppx: SCDs for now, then remove once he is transitioned to hospice
Code status:discussed code status on 04/02/2025 with the patient's son and , and they wish to make him DNR/DNI. They are not interested in any heroic measures as they do not want the patient to be suffering.
Family wishes to transition to hospice. Hospice consult placed by me. Emotional support provided to the family. Once he is transitioned to hospice, pulmonary/intake counselor service will sign off. Please call back if there are any questions or
concerns.
Data:
Left heart catheterization 03/30/2025:
CONCLUSIONS
1. Right dominant circulation with no coronary artery disease
2. Top normal to mildly elevated filling pressures (LVEDP = 13 mmHg at 102.5 kg).
3. Relative central hypotension (aortic systolic pressure 80 mmHg, mean pressure 66 mmHg), better on peripheral A-line (systolic blood pressure of 100), likely due to amplification effect.
Transthoracic echocardiogram 03/30/2025:
Normal left ventricular size and systolic function.
Estimated LV ejection fraction is 60-65%.
Posterior leaflet mitral valve prolapse and sever mitral regugitation
Focal thickening of the aotic valve and mild to moderate aortic regurgitation
Compared to the previous echo report 04/16/24 the degree of mitral regurgitation
has increased ( previously moderate). the focal thickeniing fo the aortic
leaflet is more prominent.
CT Head 03/30/2025: No acute intracranial abnormality. Mild cerebral atrophy and mild microvascular changes within the periventricular white matter.
Total time spent today was 82 minutes for this encounter. Time includes reviewing laboratory test/imaging results, reviewing pertinent medical records, obtaining and reviewing medical history, performing an appropriate exam, ordering medications,
tests and procedures. Time also includes documentation of this encounter, coordinating patient care and communicating with other healthcare professionals. Total time does not include separately billed tests performed on this date of service.
Subjective Dataa
Subjective Data
Date of Service:
Date of Service: April 03, 2025
Chief Complaint: Junior Graphic Designer Follow Up
Subjective:
Patient seen and evaluated this morning. Unable to lay flat due to gurgling/secretions and needed to be NT-suctioned. He is on room air. Tube feeds on hold. Having diarrhea. HR 136, BP 107/85, SpO2 95%. Off the precedex.
Review of Systems
General: Unobtainable - Pat Unresp
Objective Data
Data Reviewed
Vital Signs / I&O / Oxygen:
Vital Signs
Temp Pulse Resp BP Pulse Ox
98.0 F 137 29 124/88 98
04/03/25 07:48 04/03/25 08:00 04/03/25 08:00 04/03/25 08:00 04/03/25 08:34
Intake and Output
04/02/25 04/03/25 04/04/25
06:59 06:59 06:59
Intake Total 3255.3 / 3362.3 792.1 / 808.8 50.1 / 50.1
Output Total 1883 / 1923 1812 / 1872 185 / 185
Balance 1372.3 / 1439.3 -1019.9 / -1063.2 -134.9 / -134.9
SaO2 [ASV] 100
SaO2 [CPAP] 98
SaO2 [P-SIMV] 100
SaO2 [A/C] 100
SaO2 98
Nasal Cannula flow liters per 2
minute
Physical Exam
General: Respiratory Distress (negative), Comfortable, Chills (negative) and Sweats (negative)
HEENT: Normocephalic and Anicteric
Cardiovascular: Irregular Rhythm, Peripheral Edema (+1 lower extremity pitting edema bilaterally) and Other (Tachycardic)
Respiratory: Wheeze (negative), Crackles (negative), Rhonchi (negative) and Accessory Resp Muscle Use (Mild)
GI: Soft, Non Distended, Non Tender and Normal Bowel Sounds
Neurology: Tremors (negative) and Other (Minimally responsive, occasionally following commands, then becomes unresponsive again)
Skin: Warm, Dry, Cyanosis (negative) and Jaundice (negative)
Labs/Micro/Reports
Lab Data
04/03/25 04:08
06/27/25 04:08
Microbiology
03/30/25 01:54 Blood/Venous Blood Culture - Preliminary
No Growth in 4 days- Final report to follow
03/30/25 01:22 Blood/Venous Blood Culture - Preliminary
No Growth in 4 days- Final report to follow
03/31/25 20:32 Endotracheal Respiratory Culture - Preliminary
NO GROWTH
03/31/25 20:32 Endotracheal Gram Stain - Preliminary
03/30/25 01:21 Nose MRSA Screen - Final
No Methicillin Resistant Staphylococcus aureus isolated.
--- NOTE | 2025-04-03 08:35 | W.PN.HOSP.TC ---
Addendum entered and electronically signed by Ra Wilder DO 04/03/25 15:06:
Spoke with Rehab Rn, plan to transition to inpatient hospice per family and patient wishes.
Cancel MRI.
Discussed with hospice nurse.
Original Note:
Today's Communication/Plan
-
Check magnesium
Brain MRI
Replete potassium
Assessment / Plan
Assessment / Plan
Gen- Awake, somewhat alert, coughing with audible oral secretions
HEENT-NC, AT, anicteric, white coating on tongue
Neck-supple
CV-reg, no M, +S1/S2
Lungs-clear B/L
Abd-soft, NT, ND
Ext-anasarca
Musculoskeletal-no cyanosis, clubbing
Skin-warm and dry
Neuro-flaccid right-sided weakness primarily upper greater than lower extremity
Psych-calm, cooperative
Cardiogenic shock -most likely due to severe mitral regurgitation. Flail mitral P2 leaflet. Hemodynamically improved off vasopressors.
Echocardiogram 03/30 shows LVEF 60 to 65%, posterior leaflet mitral valve prolapse with severe MR, mild to moderate AR.
Subacute metabolic encephalopathy -appears to be slowly improving although difficult to assess given his significant oral secretions and garbled speech.
Given right sided flaccid weakness, will obtain brain MRI without contrast. Discussed with net washer and . Concern for left hemispheric stroke, possibly embolic due to atrial fibrillation versus septic emboli due to endocarditis.
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 Currently on IV ceftriaxone. ID is following. Blood cultures in our hospital have been negative so far.
CT surgery feels that he is too high risk for mitral valve surgery given his significant comorbidities. Discussed with Dr. Johnson.
Acute hypoxic respiratory failure -intubated March 17, extubated 04/02. Oxygenation amazingly good on room air. Needs aggressive suctioning due to his inability to clear oral secretions, possibly due to neurologic disease, need to rule out stroke.
In-hospital cardiac arrest -March 17. Reportedly treated with targeted temperature management. Etiology or trigger likely to be due to bacteremia and sepsis.
Cardiac catheterization performed March 30 does not show CAD.
Minimally displaced acute sternal fracture -likely due to recent cardiac arrest and CPR in [facility].
Acute blood loss anemia on suspected chronic anemia -on review of [facility] records, hemoglobin noted to be 9.8 on March 18. Possibly acute blood loss anemia due to hematuria in the setting of anticoagulation with IV heparin.
Transfused 1 unit of blood 04/01, hemoglobin improving, 8.6 today. Heparin discontinued several days ago.
Nutrition -has been getting tube feeds although this morning it appears to be on hold.
Hypokalemia -getting IV repletion. Check magnesium.
Possible oral thrush -nystatin.
Acute acalculous cholecystitis -s/p cholecystostomy tube placement March 19.
Metastatic prostate cancer (2012) -hormone resistant. Oncology input noted.
Possible secondary adrenal insufficiency -apparently has been on 10 mg prednisone daily for the past 2 years according to family. Currently on weaning dose of hydrocortisone IV.
ACTH stimulation test performed with brisk cortisol response, suggesting more than adequate adrenal reserves.
New diagnosis of atrial fibrillation -amiodarone per cardiology. Getting metoprolol 25 mg every 6 hours. Rates remain fast, awaiting cardiology input. Poor long-term anticoagulation candidate in the setting of active hematuria and metastatic
prostate cancer. Heparin discontinued.
TSH 1.86.
Hematuria -urine in Christian bag now clear. Heparin discontinued 04/01 morning. No plans for urologic intervention given his poor prognosis and family wishes.
Gout -stable.
Hyperlipidemia -atorvastatin.
Obesity due to excess calories
Full code
Updated patient's on the phone, Caroline King. [phone].
Anticipated Discharge: > 48 hours
Subjective/Interval History
-
Date of Service: April 03, 2025
Patient seen and examined, awake but unable to fully converse due to significant pharyngeal secretions. I was able to gather that he feels not bad when asked in detail.
Objective Data
-
Labs:
Laboratory Results
04/03/25
04:08
WBC 12.0 H
Hgb 8.6 L
Hct 26.1 L
Plt Count 221
Sodium 139
Potassium 3.3 L
Chloride 109 H
Carbon Dioxide 24
BUN 25 H
Creatinine 0.6 L
Glucose 109 H
Calcium 8.0 L
Total Bilirubin 0.9
AST 32
ALT 69 H
Alkaline Phosphatase 125
Vital Signs:
Vital Signs
Temp Pulse Resp BP Pulse Ox
98.0 F 137 29 124/88 93
04/03/25 07:48 04/03/25 08:00 04/03/25 08:00 04/03/25 08:00 04/03/25 08:00
I&O
04/02/25 04/03/25 04/04/25
06:59 06:59 06:59
Intake Total 3255.3 / 3362.3 792.1 / 808.8 33.4 / 33.4
Output Total 1882 / 1922 181 / 187 135 / 135
Balance 1372.3 / 1439.3 -1019.9 / -1063.2 -101.6 / -101.6
Review of Systems
-
Unable to obtain full review of systems at this time due to: Acuity
--- NOTE | 2025-04-03 08:47 | PTCARENOTE ---
Addendum entered by Jose Samuels RN 04/03/25 09:47:
Cardiology rounded. orders as follows.
Amio gtt stopped. --> increase po metoprolol 50mg.
Original Note:
Assumed care of pt. approx 0700.
Remains lethargic/disoriented. Hospitalist rounded, orders for MRI due to R sided flaccidness/disorientation.
AFIB uncontrolled rate/Rhythm on amio gtt --> cards notified of sustained HR in 130-150s.
See assessment flowsheets for further details.
[2025-04-03 08:51] LABS: Magnesium 1.9 mg/dl (1.6-2.3)
--- NOTE | 2025-04-03 09:10 | W.PN.CD ---
Today's Communication / Plan
-
Afib with RVR
-stop IV amiodarone
-increase metoprolol tartrate to 50mg bid
-will add diltiazem next if needed
Impression / Plan
-
I/P: 69M with moderate MR (flail P2) now severe, HLD, metastatic prostate cancer (on Abiraterone & prednisone), gout, and hypothyroidism presents as a transfer from [facility] with severe mitral regurgitation with possible
vegetation.
Outpatient Filler Shredder Machine: Dr. Rodriguez
s/p PEA cardiac arrest 03/17/2025
-10 minutes of CPR prior to ROSC, epi x 2, no shocks -> s/p TTM
Vent dependent respiratory failure
-extubated 04/02
Mental status
-follows basic commands
-discussed with hospitalist: plans for brain MRI
Atrial fibrillation with RVR
-Failed 03/27/25 DCCV, near immediate return of RVR
-[id number]: score at least 1 (age 65-74)
-heparin stopped due to downtrending Hgb and hematuria: discussed with urology, and he is not a good candidate for OAC due to prostate radiation
-stop diltiazem
-increase metoprolol tartrate to 50mg bid
-will add diltiazem next
Shock, likely mixed cardiogenic/septic with bacteremia (Streptococcus viridans) and severe MR
-ID consulted: IV abx
-improved: off of pressors
Mitral regurgitation, severe
-EF 60-65%, also with mild/mod AR
-Flail P2 (which was present last year), but now also concern for bacterial endocarditis
-undergoing CT surgery evaluation
-monitor volume status: will likely need diuretic at some point
Hematuria
-heparin off, urology consulted
cholecystitis, perc yasmany tube placed at [facility] 03/19/2025, seen by GS this admit
Prostate cancer, metastatic, on Abiraterone
PVCs, burden 4.6% on Holter (2023)
Former smoker, continued cessation recommended
DATA:
Cardiac catheterization, 03/30/2025:
CONCLUSIONS
1. Right dominant circulation with no coronary artery disease
2. Top normal to mildly elevated filling pressures (LVEDP = 13 mmHg at 102.5 kg).
3. Relative central hypotension (aortic systolic pressure 80 mmHg, mean pressure 66 mmHg), better on peripheral A-line (systolic blood pressure of 100), likely due to amplification effect.
TTE, 03/30/2025:
Normal left ventricular size and systolic function.
Estimated LV ejection fraction is 60-65%.
Posterior leaflet mitral valve prolapse and severe mitral regurgitation
Focal thickening of the aortic valve and mild to moderate aortic regurgitation
Compared to the previous echo report 04/16/24 the degree of mitral regurgitation
has increased ( previously moderate). the focal thickening fo the aortic
leaflet is more prominent.
TONE, 03/27/2025:
Mild AR.
MV leaflets thickened. Flail P2. Vegetation cannot be excluded.
CT PE 03/16/2025:
Moderate pericardial effusion.
Bilateral pleural effusions, R > L.
Physical Exam
Vital Signs/Labs
Vital Signs
Temp Pulse Resp BP Pulse Ox
98.0 F 137 29 124/88 98
04/03/25 07:48 04/03/25 08:00 04/03/25 08:00 04/03/25 08:00 04/03/25 08:34
04/02/25 04/03/25 04/04/25
06:59 06:59 06:59
Actual Weight 105.1 kg 103.5 kg
04/03/25 04:08
04/03/25 04:08
PT 15.0 Sec (11.4-14.6) H 04/01/25 06:05
INR 1.13 04/01/25 06:05
APTT 75.7 Sec (23.4-35.0) H 04/01/25 06:05
Magnesium 1.9 mg/dl (1.6-2.3) 04/03/25 04:08
Triglycerides 167 mg/dl (10-149) H 03/30/25 01:21
LDL Cholesterol, Calc 50 mg/dl 03/30/25 01:21
VLDL Cholesterol, Calc 33 mg/dl (0-30) H 03/30/25 01:21
HDL Cholesterol 36 mg/dl 03/30/25 01:21
Digoxin < 0.4 ng/ml (0.8-2.0) L 03/30/25 08:33
Physical Exam
Constitutional: No acute distress
EENT: Moist mucous membranes
Cardiovascular: Rhythm/rate is irregular, Pedal edema present, JVD present and Systolic murmur present
Respiratory: Labored respirations
Data Reviewed
-
Date of Service: April 03, 2025
EKG: Other (Tele: A fib 100-130s)
Labs: Labs Reviewed by me
[2025-04-03] MEDS: STERILE WATER FOR INJECTION 20 ML IV (09:34)
[2025-04-03] MEDS: ROCEPHIN 2000 MG IV (09:34)
--- NOTE | 2025-04-03 11:32 | W.PN.URO.CBU ---
Today's Communication / Plan
-
observe
Assessment / Plan
-
metastatic prostate cancer
hematuria- suspect due to xrt/cryo
spoke with care team and family yesterday- did not wish to pursue cysto today for a variety of reasons
pt is extubated
urine clear off anticoagulation- in short term- cardiology does NOT need to resume
family to have discussion with CT surgery today regarding candidacy- desire for intervention
if comfort care measures elected- no need for cysto; if plan changes can revisit next week
Diagnosis
-
Date of Service: April 03, 2025
-
Patient Urologic Diagnosis:
hematuria
prostate cancer
Subjective
-
pt extubated
awake- responding to voice
urine clear
Objective
-
Vital Signs
Temp Pulse Resp BP Pulse Ox
98.0 F 134 28 124/87 98
04/03/25 07:48 04/03/25 10:00 04/03/25 10:00 04/03/25 10:00 04/03/25 08:34
Intake and Output
04/02/25 04/03/25 04/04/25
06:59 06:59 06:59
Intake Total 3255.3 / 3362.3 792.1 / 808.8 50.1 / 50.1
Output Total 1883 / 1923 1812 / 1872 240 / 240
Balance 1372.3 / 1439.3 -1019.9 / -1063.2 -189.9 / -189.9
Intake:
IV fluids (Total) 995.3 / 1022.3 552.1 / 568.8 50.1 / 50.1
AMIO 400.8 / 417.5 400.8 / 417.5 50.1 / 50.1
Heparin 54 / 54
KCL 202.5 / 202.5
PRECEDEX 239.0 / 249.3 151.3 / 151.3
alfredito 99 / 99 0 / 0
Tube feeding 1275 / 1330 165 / 165
Feeding tube flush amount 725 / 750 75 / 75
Amount instilled into Drain (
Total)
Right Middle Abdomen Biliary
Blood Product Amount Infused ( 250 / 250
mL)
Packed Rbc Leukoreduced Unit 250 / 250
[id number]
Output:
Drain Output (Total) 405 / 405 400 / 400
Right Middle Abdomen Biliary 405 / 405 400 / 400
Urine, Pacheco 1478 / 1518 1412 / 1472 240 / 240
Laboratory Results
04/03/25 04:08
04/03/25 04:08
Review of Systems
-
Unable to obtain full review of systems at this time due to: Patient Non-verbal
Physical Exam
-
General - no acute distress
Abdomen - soft, non-tender
Genitalia - pacheco in place- urine clear
--- NOTE | 2025-04-03 11:53 | W.PN.UPDATE ---
Update Note
Progress Note Update
Patient seen at bedside with Dr. Johnson. Patient extubated 04/02/2025 requiring frequent suctioning for secretion management. Patient weaned able to move all extremities and nod head appropriately to questions. Upon questioning, patient does not
wish to pursue open heart surgery. Dr. Johnson offered possibility of mitral clip if progress continues to be hindered by severe MR. Will follow along with primary team.
--- NOTE | 2025-04-03 12:06 | PTCARENOTE ---
ROUND NOTES
Discussed w. It Project Manager, pt. unable to manage secretions/airway whilst lying flat --> hold off on MRI at this time.
Restart TF at trickle rate do not advance further at this time.
Chest pt added.
Christian to stay per Uro determination.
HR still elevated --> more metoprolol ordered + dilt IVP --> if HR remains high restart amio gtt per manual arts therapy teacher.
[2025-04-03 12:23] LABS: Glucose - Point of Care 109 mg/dl (70-99)
--- NOTE | 2025-04-03 12:50 | PTCARENOTE ---
Addendum entered by Jose Samuels RN 04/03/25 13:54:
Pt. placed on sport bed.
Addendum entered by Jose Samuels RN 04/03/25 13:00:
pt. now agreeable to trumpet placement. GOC discussions on going. --> of note pt. is verbalizing his desire to not cont. with treatment, and son bedside discussing options with patient.
Original Note:
Family bedside. On going GOC discussion w. patient family would like to confirm with patient his wishes moving forward with care.
Pt. declined nasal trumpet placement. news copy editor notified.
[2025-04-03] MEDS: CARDIZEM 10 MG IV (13:07)
[2025-04-03] MEDS: KCL ELIXIR 40 MEQ TUBE (13:08)
[2025-04-03] MEDS: MAGNESIUM SULFATE 100 IV (13:08)
[2025-04-03] MEDS: LOPRESSOR 50 MG TUBE (13:08)
[2025-04-03] MEDS: NOVOLOG FLEXPEN SC (13:09)
[2025-04-03] MEDS: ATROVENT NEBULES 0.5 MG INH (13:10)
[2025-04-03] MEDS: SODIUM CHLORIDE 3% FOR INHALATION 1 VIAL INH (13:11)
--- NOTE | 2025-04-03 14:16 | PTCARENOTE ---
Addendum entered by Jose Samuels RN 04/03/25 14:51:
Discussed w. merchandise execution leader, Dobhoff can be removed. Bed on [address] available. Awaiting D/C orders from hospitalist.
Original Note:
Pt. family requested [facility]cher [facility] Drier to discuss comfort options.
[facility]cher [facility] Drier bedside for GOC discussions.
Pt. now made Hospice.
--- NOTE | 2025-04-03 14:44 | CM ---
Consult for hospice eval and treat. Referral forwarded to Hospice.
--- NOTE | 2025-04-03 14:59 | W.DS.TRANS ---
DC Summary - Repair Service Clerk
-
Discharge Instructions:
Discharge Diagnosis/Procedures Respiratory failure, endocarditis
Diet As tolerated
Activity Other activity
Additional Activity bed rest
Driving Restrictions No driving
Bathing Restrictions None
Instructions:
Stand-Alone Forms:
Changes to Home Medications: Yes
Discharge Medications:
Home Medication Changes
stop home meds
Pending Results: No
--- NOTE | 2025-04-03 15:12 | CM ---
Patient has been discharged from acute care to inpatient hospice.
--- NOTE | 2025-04-03 15:54 | HOSPNOTE ---
Met with family and patient will be admitted inpatient hospice. Admissions called and Attending in agreement.
== END 2025-04-03 15:00 | disposition hospice, inpatient (51) | DRG 286 ==
LOC: ICU 21:24
PROVIDERS: Internal Medicine Cardiovascular Disease; Nurse Practitioner; Nurse Practitioner Gerontology; Physician Assistant; ADMITTING PHYSICIAN Thoracic Surgery (Cardiothoracic Vascular Surgery); ATTENDING PHYSICIAN Hospitalist; CONSULT PHYSICIAN Internal Medicine Critical Care Medicine; CONSULT PHYSICIAN Internal Medicine Hematology & Oncology; CONSULT PHYSICIAN Psychiatry & Neurology Neurology; CONSULT PHYSICIAN Specialist; OTHER PHYSICIAN Hospitalist; OTHER PHYSICIAN Internal Medicine; OTHER PHYSICIAN Surgery
PROC: 4A023N7 Measurement of Cardiac Sampling and Pressure, Left Heart, Percutaneous Approach (ICD-10-PCS; 2025-03-30)
PROC: B2111ZZ Fluoroscopy of Multiple Coronary Arteries using Low Osmolar Contrast (ICD-10-PCS; 2025-03-30)
PROC: 5A1945Z Respiratory Ventilation, 24-96 Consecutive Hours (ICD-10-PCS; 2025-03-31)
PROC: 30243N1 Transfusion of Nonautologous Red Blood Cells into Central Vein, Percutaneous Approach (ICD-10-PCS; 2025-04-01)
DX: I05.9 Rheumatic mitral valve disease, unspecified (principal); A41.9 Sepsis, unspecified organism; G93.41 Metabolic encephalopathy; J96.01 Acute respiratory failure with hypoxia; R57.0 Cardiogenic shock; R65.21 Severe sepsis with septic shock; D68.32 Hemorrhagic disorder due to extrinsic circulating anticoagulants; Z99.11 Dependence on respirator [ventilator] status; E87.6 Hypokalemia; D50.0 Iron deficiency anemia secondary to blood loss (chronic); Z85.46 Personal history of malignant neoplasm of prostate; I48.0 Paroxysmal atrial fibrillation; R31.0 Gross hematuria; T45.515A Adverse effect of anticoagulants, initial encounter; I25.10 Atherosclerotic heart disease of native coronary artery without angina pectoris; E03.9 Hypothyroidism, unspecified; E78.00 Pure hypercholesterolemia, unspecified; E66.09 Other obesity due to excess calories; Z68.30 Body mass index [BMI] 30.0-30.9, adult; F17.200 Nicotine dependence, unspecified, uncomplicated; Z87.01 Personal history of pneumonia (recurrent); I10 Essential (primary) hypertension; Z79.890 Hormone replacement therapy; Z82.49 Family history of ischemic heart disease and other diseases of the circulatory system; Z92.3 Personal history of irradiation; L89.151 Pressure ulcer of sacral region, stage 1
CPT/HCPCS: 93308; 36600; 70450; 71045; 71275; 74174; 80048; 80053; 80061; 80162; 82024; 82140; 82248; 82330; 82533; 82607; 82746; 82805; 82962; 83036; 83605; 83735; 84153; 84443; 85014; 85018; 85025; 85027; 85610; 85730; 86850; 86900; 86901; 86920; 87040; 87070; 87205; 93005; 93458; 93880; 94002; 94003; 94640; 94660; C1894; J2997; P9016; P9045; Q9967

== ENCOUNTER 2025-04-03 15:01 | Inpatient (IN) | payer OTHER, SELFPAY ==
--- NOTE | 2025-04-03 15:55 | HOSPNOTE ---
Patient will be admitted inpatient hospice for management of secretions, shortness of breath and agitation. Admissions was called to move patient to [facility]. Updated floor RN. Consents were signed and admission will be completed.
[2025-04-03] MEDS: ROBINUL 0.2 MG IV ×2 (15:57→20:29)
[2025-04-03] MEDS: MORPHINE SULFATE 2 MG IV ×6 (16:03→21:02)
[2025-04-03] MEDS: ATIVAN 1 MG SL ×2 (16:53→19:26)
[2025-04-03 16:58] VITALS: BP 122/80
[2025-04-03] MEDS: TRANSDERM-SCOP 1 PATCH TRANSDERM (17:36)
[2025-04-03] MEDS: MORPHINE 100 IV (18:38)
[2025-04-03 19:10] VITALS: BP 116/80
[2025-04-03] MEDS: MORPHINE SULFATE 4 MG IV ×2 (21:52→22:47)
[2025-04-03] MEDS: TYLENOL/FEVERALL 650 MG RECTAL (21:53)
--- NOTE | 2025-04-03 23:25 | PTCARENOTE ---
Went into reassess patient after last morphine bolus. Pt not breathing, no audible heart sounds. Contacted BUILD AND DEPLOYMENT ENGINEER to come see patient and pronounce pt. BUILD AND DEPLOYMENT ENGINEER to notify . Time of 1284.
--- NOTE | 2025-04-04 01:46 | W.PN.DEATH ---
Pronouncement of
-
Called to see patient to pronounce.
No spontaneous heart tones or respirations noted.
Patient not responsive to verbal stimuli.
Patient is pronounced .
Time of : 11:25
Date of : 04/03/25
Cause of : cardiogenic arrest due to cardiogenic shock due to sepsis/endocarditis
Family Notified: Yes ( at [phone])
== END 2025-04-04 03:19 | disposition expired | DRG 951 ==
LOC: 2 NORTH 15:01
PROVIDERS: ADMITTING PHYSICIAN Hospitalist
DX: Z51.5 Encounter for palliative care (principal); G93.41 Metabolic encephalopathy; J96.01 Acute respiratory failure with hypoxia; A41.9 Sepsis, unspecified organism; R65.21 Severe sepsis with septic shock; S22.20XA Unspecified fracture of sternum, initial encounter for closed fracture; D62 Acute posthemorrhagic anemia; R57.0 Cardiogenic shock; I34.0 Nonrheumatic mitral (valve) insufficiency; I46.9 Cardiac arrest, cause unspecified; E87.6 Hypokalemia; R31.9 Hematuria, unspecified; I48.91 Unspecified atrial fibrillation